=== PATIENT | male | born 1985 | race Caucasian/White ===

== ENCOUNTER 2021-04-02 20:30 | Inpatient (IN) | payer OTHER, SELFPAY ==
--- NOTE | ~2021-04-02 | CT_ITS ---
EXAMINATION: CT ABDOMEN AND PELVIS WITH CONTRAST CLINICAL INFORMATION: Anterior abdominal wall cellulitis associated with umbilical hernia COMPARISON: None TECHNIQUE: Multidetector volumetric images were obtained from the superior aspect of the liver through the pubic symphysis following administration 85 mL of Omnipaque 350 intravenous contrast. Sagittal and coronal reformatted images were obtained on the technologist's workstation. Oral contrast: No This CT examination was performed using dose optimization techniques as appropriate, variously including the following: *Automated exposure control *Adjustment of mA and/or kV according to patient size (this includes techniques or standardized protocols for targeted exams where dose is matched to indication/reason for exam; i.e. extremities or head) *Use of iterative reconstruction technique DLP: 1340 mGy-cm FINDINGS: LUNG BASES: Clear. LIVER, GALLBLADDER, AND BILIARY TREE: The liver is normal in size, shape, and attenuation. No focal hepatic lesion or biliary ductal dilatation is present. The gallbladder is unremarkable with no evidence of radiopaque gallstones, gallbladder wall thickening, or obvious pericholecystic inflammatory changes. PANCREAS: Unremarkable. SPLEEN: Unremarkable. ADRENAL GLANDS: Unremarkable. KIDNEYS AND URETERS: The kidneys are normal in size, shape, and attenuation. Simple renal cyst, right kidney requires no further follow-up. No hydronephrosis, hydroureter, or calculi seen. No perinephric stranding. BLADDER: Unremarkable. GASTROINTESTINAL TRACT: The small and large bowel are unremarkable. The appendix is unremarkable. ABDOMINAL WALL: There is a tiny fat-containing umbilical hernia associated with extensive umbilical and periumbilical fat stranding and associated skin thickening. Small amount of gas present within the anterior umbilicus, possibly intertriginous. LYMPH NODES: Normal. VASCULAR: Unremarkable. PELVIC VISCERA: Unremarkable. OSSEOUS STRUCTURES: Unremarkable. CT/CT abdomen pelvis w con IMPRESSION: * There is skin thickening and underlying subcutis fat stranding of the umbilicus and periumbilical soft tissues reflective of cellulitis. There is a tiny fat-containing umbilical hernia which seems to be unrelated. * Trace gas within (or between) the anterior umbilical soft tissues may be intertriginous or reflect an abscess.
[2021-04-02 20:32] VITALS: BP 149/104; PULSE 108; RESP 18; TEMP 36.6; O2SAT 95; BMI 36.7
[2021-04-02 22:48] VITALS: BP 145/90; PULSE 95; RESP 17; TEMP 37.1; O2SAT 97
[2021-04-02 23:07] LABS: Basophils Percent Auto 0.4 % (0-2); Eosinophils Absolute Auto 0.1 X10*3/uL (0.0-0.4); Eosinophils Percent Auto 1.3 % (0-4); Hematocrit 39.5 % (42-52); Hemoglobin 14.1 g/dl (14.0-18.0); Imm Gran Abs Auto 0.02 X10*3/uL (0.00-0.03); Imm Gran Pct Auto 0.2 % (0.0-0.4); Lymphocytes Absolute Auto 1.7 X10*3/uL (1.2-4.9); Lymphocytes Percent Auto 17.9 % (20-40); MANUAL DIFF FLAG NO; Mean Corpuscular HGB Conc 35.7 g/dl (31.0-36.0); Mean Corpuscular Hemoglobin 30.8 pg (27.0-33.0); Mean Corpuscular Volume 86.2 fL (80-98); Mean Platelet Volume 8.7 fL (9.4-12.4); Monocytes Absolute Auto 1.1 X10*3/uL (0.1-1.2); Monocytes Percent Auto 11.5 % (2-11); Neutrophils Absolute Auto 6.4 X10*3/uL (2.0-8.3); Neutrophils Percent Auto 68.7 % (45-73); Platelet Count 191 X10*3/uL (160-400); Red Blood Count 4.58 X10*6/uL (4.60-5.80); Red Cell Distribution Width 11.6 % (11.0-16.0); White Blood Count 9.3 X10*3/uL (4.8-10.8)
--- NOTE | 2021-04-02 23:15 | ED_ITS ---
HPI - General Adult General Chief complaint: General Medical Stated complaint: hernia Time Seen by Provider: 04/02/21 23:13 Source: patient Mode of arrival: ambulatory History of Present Illness HPI narrative: 35-year-old male without significant past medical history presents for continued drainage, erythema, pain at his ?belly button? without associated fever, chills, nausea, vomiting, diarrhea. Patient states that 1 week ago he noted that there was redness around his belly button he began treating for a yeast infection with Lotrimin, but it did not get better so he went to [facility] ago at which time they performed an I and D and started patient on antibiotics. However, they informed him yesterday that there was no bacteria present. Patient states that he continues to have pain and notes that the swelling at the belly button has gotten worse. Related Data Allergies Allergy/AdvReac Type Severity Reaction Status Date / Time No Known Allergies Allergy Verified 04/02/21 20:37 Review of Systems Review of Systems: Pertinent positives and negatives as stated in HPI 10 point review of systems is otherwise negative. PMFSH Past Medical History Source: nursing notes reviewed Medical History Degenerative disc disease at L5-S1 level Social History Social History Advance Directives: No Advance Directives Information Provided: No Physical Exam Vital Signs: Vital Signs: Last Vital Signs Temp 98.3 F 04/03/21 04:57 Pulse 70 04/03/21 06:46 Resp 15 04/03/21 06:46 BP 117/63 04/03/21 06:46 Pulse Ox 98 04/03/21 06:46 Body Mass Index 36.7 VITAL SIGNS: Reviewed. GENERAL: Well developed, well nourished, in no acute distress. HEAD: Normocephalic/atraumatic EYES: PERRLA, EOMI EARS: Ext canals without abnormality OROPHARYNX: no oral lesions noted, posterior pharynx clear LUNGS: Normal breath sounds. No adventitious sounds or accessory muscle use. SpO2<98> CARDIOVASCULAR: Regular rate and rhythm without noted murmurs ABDOMEN: Obese, Soft, non-tender, non-distended with bowel sounds, but there is significant induration approximately 6 cm surrounding the umbilicus and can easily be palpated with a noted herniation at the umbilicus that is fluctuant and there is noted serous colored fluid pooling within the umbilicus there is also associated erythema, but patient is unable to tolerate further palpation to appreciate umbilical defect. SKIN: Inspection of the skin reveals no rashes NEUROLOGIC: Alert and oriented x 4. Strength and sensation to light touch were grossly intact x 4. Course Course Course Narrative: 35-year-old male with history and clinical presentation concerning for abdominal wall cellulitis that is not responded to oral antib iotics and further concerns given the quality of the drainage in the umbilicus which is not consistent with purulence material. On review of all investigations CT scan demonstrates abdominal wall cellulitis and states ?appears to be unrelated with noted umbilical hernia?. This case was discussed with Dr. Pham who will see the patient the morning and recommends antibiotics, which were given. Reevaluation(s) Reevaluation #1: Patient placed in physician observation because the patient needed more time for evaluation by Surgical Services. At the time observation was started the patient's vital signs were stable, patient is alert and oriented, neuro: Nonfocal, CV RRR, lungs clear Time: 02:05 Reevaluation #2: Patient taken off of physician observation and was noted to be AVSS, and decision to admit by surgeon. Time: 08:00 Medical Decision Making Lab Data Result diagrams: 04/02/21 23:02 04/02/21 23:02 Labs: Lab Results 04/02/21 04/02/21 04/03/21 Range/Units 23:02 23:02 02:01 WBC 9.3 (4.8-10.8) X10*3/uL RBC 4.58 L (4.60-5.80) X10*6/uL Hgb 14.1 (14.0-18.0) g/dl Hct 39.5 L (42-52) % MCV 86.2 (80-98) fL MCH 30.8 (27.0-33.0) pg MCHC 35.7 (31.0-36.0) g/dl RDW 11.6 (11.0-16.0) % Plt Count 191 (160-400) X10*3/uL MPV 8.7 L (9.4-12.4) fL Immature Gran % (Auto) 0.2 (0.0-0.4) % Neut % (Auto) 68.7 (45-73) % Lymph % (Auto) 17.9 L (20-40) % [place] % (Auto) 11.5 H (2-11) % Eos % (Auto) 1.3 (0-4) % Baso % (Auto) 0.4 (0-2) % Lymph # (Auto) 1.7 (1.2-4.9) X10*3/uL [place] # (Auto) 1.1 (0.1-1.2) X10*3/uL Eos # (Auto) 0.1 (0.0-0.4) X10*3/uL Baso # (Auto) 0.0 (0.0-0.2) X10*3/uL Abs Immat Gran (auto) 0.02 (0.00-0.03) X10*3/uL Absolute Neuts (auto) 6.4 (2.0-8.3) X10*3/uL Absolute Nucleated RBC 0.000 (0.0-0.012) X10*3/uL Nucleated RBC % (auto) 0.0 (0.0-0.2) /100WBC Sodium 141 (135-145) mmol/L Potassium 4.0 (3.3-5.1) mmol/L Chloride 105 (96-108) mmol/L Carbon Dioxide 26 (22-29) mmol/L Anion Gap 14 (12-20) BUN 18 H (9-16) mg/dL Creatinine 1.14 (0.5-1.4) mg/dL Estim Creat Clear Calc 139.0 Estimated GFR > 60 Random Glucose 130 H (60-115) mg/dL Calcium 9.9 (8.4-10.2) mg/dL Total Bilirubin 0.5 (0.0-1.0) mg/dL AST 13 (5-37) U/L ALT 20 (0-40) U/L Alkaline Phosphatase 102 (39-117) U/L Total Protein 7.5 (6.5-8.0) g/dL Albumin 4.3 (3.5-5.0) g/dL COVID-19 (ISI) Negative (Negative) COVID-19 Clin Com See Note Discharge Plan Discharge Patient Disposition: Admitted As Inpatient
[2021-04-02 23:35] LABS: Alanine Aminotransferase 20 U/L (0-40); Albumin Level 4.3 g/dL (3.5-5.0); Alkaline Phosphatase 102 U/L (39-117); Anion Gap 14 (12-20); Aspartate Amino Transferase 13 U/L (5-37); Bilirubin Total 0.5 mg/dL (0.0-1.0); Blood Urea Nitrogen 18 mg/dL (9-16); Calcium 9.9 mg/dL (8.4-10.2); Carbon Dioxide 26 mmol/L (22-29); Chloride 105 mmol/L (96-108); Estimated Glomerular Filt Rate > 60; Glucose Random 130 mg/dL (60-115); Sodium 141 mmol/L (135-145); Total Protein 7.5 g/dL (6.5-8.0)
[2021-04-03] MEDS: iohexoL 350 MG/ML 100 ML INFUS..BTL IV (00:57)
[2021-04-03 01:57] VITALS: BP 145/84; PULSE 98; RESP 16; TEMP 36.9; O2SAT 98
[2021-04-03] MEDS: Piperacillin Sodium/Tazobactam 3.375 GM in 0.9 % Sodium Chloride 50 ML IV ×4 (02:23→20:16)
[2021-04-03 02:24] LABS: COVID-19 Test Negative (Negative); IDNOW Serial# 9DD0AD1C
[2021-04-03 04:57] VITALS: BP 145/93; PULSE 83; RESP 18; TEMP 36.8; O2SAT 97
--- NOTE | 2021-04-03 05:06 | PC.NURSE ---
This RN to bedside to reassess VS. Pt updated on plan of care including seeing Dr Pham in AM for consult regarding CT results. Pt expresses understanding and is agreeable. Pt abruptly sits up and begins vomiting, states I have reflux. Dr Magdaleno made aware, ordered zofran for pt. Pt's stretcher in low locked position, rails raised, call roth within reach
[2021-04-03 06:46] VITALS: BP 117/63; PULSE 70; RESP 15; O2SAT 98
--- NOTE | 2021-04-03 08:37 | P.HPGS_ITS ---
History of Present Illness History of Present Illness Date of Service: 04/03/21 Chief complaint: cellulitis of the umbilicus Narrative: Jabari Crane is a 35 year old male with morbid obesity who came to the emergency room last night because of redness of his umbilicus with discharge. He said he has had this for several days now and he actually went to an urgent care center about 5 years ago. He was told he had cellulitis and was started on oral antibiotics. However, he has not noticed any improvement with regard to the redness and drainage. He denies any GI complaints. He says does not really have much pain on the umbilical area. I was therefore consulted because of the persistence of his redness and drainage. The patient denies any fever or chills at home. Review of Systems Constitutional: Constitutional: Denies chills and Denies fever(s) Cardiovascular: Cardiovascular: Denies chest pain, Denies dyspnea and Denies dyspnea on exertion Respiratory: Respiratory: Denies cough, Denies dyspnea and Denies dyspnea on exertion Gastrointestinal: Gastrointestinal: Denies hematochezia and Denies change in bowel habits Genitourinary: Genitourinary: Denies hematuria and Denies difficulty urinating Musculoskeletal: Musculoskeletal: Denies back pain and Denies limited range of motion Neurologic: Denies focal weakness and Denies convulsions Psychiatric: Psychiatric: Denies depression and Denies mood swings PMFSH Past Medical History Medical History Degenerative disc disease at L5-S1 level Morbid obesity Social History Social History Household Members: Other Household Members Other:: Lives with mother Housing: Apartment Do you presently have visiting nurse or other home services: No Patient Tobacco Use Status: Current everyday Tobacco user Tobacco use type: Cigarette Cigarettes Per Day: 10 Smoked in Last 30 Days: Yes e-Cigarette/Vaping Use: Never Used Patient Interested in Nicotine Replacement: Yes Patient Given Instructions on How to Stop Smoking: Yes Date Education Initiated: 04/03/21 Second Hand Smoke Exposure: No Use of substances other than those prescribed or required for medical reasons: No Any prior treatment program specific to substance use: No Have you been hit, kicked, punched, or otherwise hurt by someone within the past year? If so, by whom?: No Do you feel safe in your current relationship?: No Current Relationship Is there a partner from a previous relationship who is making you feel unsafe now?: No Advance Directives: No Advance Directives Information Provided: No Advance Directives on File: No Do you have thoughts of harming others: None Do you have a plan to hurt others: No Plan Recently lost weight without trying: No Nutrition Risks: No Nutritional Risk Poor oral hygiene: No Meds Allergies Allergy/AdvReac Type Severity Reaction Status Date / Time No Known Allergies Allergy Verified 04/02/21 20:37 Active Medications: Current Medications Generic Name Dose Route Start Last Admin Trade Name Freq PRN Reason Stop Dose Admin Sodium Chloride 1,000 mls @ 80 mls/hr 04/03/21 07:45 Ns IVCONT .[id number] BRIAN Piperacillin Sod/Tazobactam 50 mls @ 100 mls/hr 04/03/21 08:00 Sod 3.375 gm/ Sodium Chloride IV Q6H BRIAN Oxycodone HCl 10 mg 04/03/21 07:34 Oxycodone Hcl Immed Release 5 Mg Tablet PO Q6H PRN Pain, Moderate (Pain Scale 4-6 Sodium Chloride 3 ml 04/03/21 08:00 0.9 % Sodium Chloride Flush 3 Ml Syringe IVFLUSH QSHIFT [facility] Home Medications Medication Instructions Recorded Confirmed Last Taken Type sulfamethoxazole 800 1 tab PO BID 04/03/21 04/03/21 Unknown History mg-trimethoprim 160 mg tablet Physical Exam Vital Signs: Vital Signs: Last Vital Signs Temp 98.3 F 04/03/21 04:57 Pulse 70 04/03/21 06:46 Resp 15 04/03/21 06:46 BP 117/63 04/03/21 06:46 Pulse Ox 98 04/03/21 06:46 Body Mass Index 36.7 Const: Other: Appears obese General: comfortable and no acute distress Orientation/consciousness: patient oriented x3 Neck: Neck: Yes no lymphadenopathy Resp: Auscultation: clear to auscultation bilaterally Cardio: Rhythm: regular rhythm GI: Other: Redness of the area of the umbilicus, with scanty clear drainageand edema from the umbilical dimple itself Palpation (GI): Soft to palpation, nontender and no guarding Neuro: General: patient oriented x3 Results Results Labs: Short CBC 04/02/21 Range/Units 23:02 WBC 9.3 (4.8-10.8) X10*3/uL Hgb 14.1 (14.0-18.0) g/dl Hct 39.5 L (42-52) % Plt Count 191 (160-400) X10*3/uL BMP 04/02/21 23:02 Sodium 141 Potassium 4.0 Chloride 105 Carbon Dioxide 26 BUN 18 H Creatinine 1.14 Calcium 9.9 Liver Function 04/02/21 Range/Units 23:02 Total Bilirubin 0.5 (0.0-1.0) mg/dL AST 13 (5-37) U/L ALT 20 (0-40) U/L Alkaline Phosphatase 102 (39-117) U/L Albumin 4.3 (3.5-5.0) g/dL Abdomen CT scan report/results: report reviewed and image reviewed CT scan - pelvis: report reviewed and image reviewed Assessment and Plan (1) Cellulitis of umbilicus: Status: Acute He has significant redness and drainage from the umbilicus. I have reviewed his CAT scan images. There was note of inflammatory stranding within the umbilicus itself and the skin overlying this. He has has small fat contain ing area but this does not seem to be directly connected to the area of the inflammatory changes. I am going to therefore admit him for IV antibiotics as he has failed oral antibiotics. I have reviewed the CAT scan images with the radiologist. I would likely do a small I and D the area as there is note of a small focus of air that may represent an abscess. Fat necrosis within the umbilicus is also a differential. The patient understands the plan well. He is otherwise hemodynamically stable. Quality Stroke Does the patient have a stroke diagnosis?: No VTE Prior VTE?: No VTE Risk Level:: Medical - low VTE Device Contraindication: N/A - Device Ordered VTE Drug Contraindication: Treatment Not Indicated Procedures Date of Service Date of Service: 04/03/21
[2021-04-03] MEDS: 0.9 % Sodium Chloride 1,000 ML 80 ML IVCONT (08:46)
[2021-04-03 11:09] VITALS: BMI 36.7
--- NOTE | 2021-04-03 11:23 | PC.NURSE ---
Skin assessment completed today. Patient has an indurated umbilicus with surrounding redness. Surgical consult ordered. No other skin issues noted.
[2021-04-03 11:26] VITALS: BP 138/85; PULSE 76; RESP 16; TEMP 36.6; O2SAT 97
[2021-04-03 15:35] VITALS: BP 132/77; PULSE 59; RESP 20; TEMP 36.7; O2SAT 98
--- NOTE | 2021-04-03 16:15 | P.EN_ITS ---
Event Note Date of Service: 04/03/21 Event Note: Patient seen on afternoon rounds I explained to him that in view of persistent drainage from the umbilicus, I would do an I and D at bedside under local anesthesia Explained the technique of this procedure as well as the risks, benefits and alternatives He had given verbal consent He was in supine position The umbilicus prepped and draped. Lidocaine 1% was used for local anesthesia. An incision was made on the skin on the very edematous part of the umbilicus u sing a blade 11. A small cavity with serous fluid was entered and drained. Cultures were taken I probed the cavity with a hemostat to break down any loculations Dressings applied Continue dry dressings daily Continue antibiotics Possible discharge tomorrow or Tuesday depending on cellulitis
[2021-04-03] MEDS: Lidocaine HCl 1 % 20 ML VIAL SUBCUT (16:42)
[2021-04-03] MEDS: 0.9 % Sodium Chloride Flush 3 ML SYRINGE IVFLUSH (20:16)
[2021-04-04] VITALS: BP 119/65; PULSE 67; RESP 18; TEMP 36.4; O2SAT 98
[2021-04-04] MEDS: Piperacillin Sodium/Tazobactam 3.375 GM in 0.9 % Sodium Chloride 50 ML IV ×2 (02:13→08:30)
[2021-04-04] MEDS: 0.9 % Sodium Chloride 1,000 ML 80 ML IVCONT (04:34)
[2021-04-04 07:01] LABS: MANUAL DIFF FLAG NO
[2021-04-04 07:11] VITALS: BP 136/82; PULSE 70; RESP 18; TEMP 36.1; O2SAT 96
[2021-04-04 07:24] LABS: Basophils Absolute Auto 0.1 X10*3/uL (0.0-0.2); Basophils Percent Auto 0.8 % (0-2); Eosinophils Absolute Auto 0.2 X10*3/uL (0.0-0.4); Eosinophils Percent Auto 3.2 % (0-4); Hematocrit 38.9 % (42-52); Hemoglobin 13.2 g/dl (14.0-18.0); Imm Gran Abs Auto 0.02 X10*3/uL (0.00-0.03); Imm Gran Pct Auto 0.3 % (0.0-0.4); Lymphocytes Absolute Auto 2.1 X10*3/uL (1.2-4.9); Lymphocytes Percent Auto 33.5 % (20-40); Mean Corpuscular HGB Conc 33.9 g/dl (31.0-36.0); Mean Corpuscular Hemoglobin 29.9 pg (27.0-33.0); Mean Corpuscular Volume 88.2 fL (80-98); Mean Platelet Volume 9.1 fL (9.4-12.4); Monocytes Absolute Auto 0.6 X10*3/uL (0.1-1.2); Neutrophils Absolute Auto 3.3 X10*3/uL (2.0-8.3); Neutrophils Percent Auto 53.2 % (45-73); Platelet Count 215 X10*3/uL (160-400); Red Blood Count 4.41 X10*6/uL (4.60-5.80); Red Cell Distribution Width 11.7 % (11.0-16.0); White Blood Count 6.2 X10*3/uL (4.8-10.8)
[2021-04-04] MEDS: 0.9 % Sodium Chloride Flush 3 ML SYRINGE IVFLUSH (08:30)
--- NOTE | 2021-04-04 16:23 | P.PNGS_ITS ---
Subjective Subjective Date of Service: 04/04/21 Interval history: Seen this morning, feeling better. No significant pain. Physical Exam Vital Signs: Vital Signs: Last Vital Signs Temp 97 F 04/04/21 07:11 Pulse 70 04/04/21 07:11 Resp 18 04/04/21 07:11 BP 136/82 04/04/21 07:11 Pulse Ox 96 04/04/21 07:11 Body Mass Index 36.7 Const: General: cooperative, no acute distress and alert GI: Other: Soft, nontender, nondistended. Clean incision right central umbilical area. Moderate serosanguineous drainage on dressing, no active drainage, no significant cellulitic change to skin Procedures Date of Service Date of Service: 04/04/21 Progress Note: A&P Assessment and plan (1) Cellulitis of umbilicus: Status: Acute Assessment and Plan: Doing well following incision and drainage of umbilicus yesterday. Ready for discharge. Reviewed wound care. Will follow up with Dr. Pham in the office. Time Spent With Patient Time: Total time spent is greater than 50% in coordination of care (as docum ented) at patient's floor/unit and/or counseling patient: Time with patient: less than 15 minutes Quality Stroke Does the patient have a stroke diagnosis?: No VTE Prior VTE?: No VTE Risk Level:: Medical - low VTE Device Contraindication: N/A - Device Ordered VTE Drug Contraindication: Treatment Not Indicated
--- NOTE | 2021-04-07 10:11 | PM.DS ---
DS: Providers Provider Date of Service: 04/04/21 Date of admission: 04/03/21 07:32 Primary care physician: Kenneth Car MD DS: Diagnosis Discharge Diagnosis (1) Cellulitis of umbilicus: Status: Acute DS: Medications Discharge Medications Home Medications: Previous Rx's Medication Instructions Recorded oxycodone 5 mg tablet 5 mg PO Q4H PRN #15 tab 04/03/21 sulfamethoxazole 800 1 tab PO BID #10 tab 04/04/21 mg-trimethoprim 160 mg tablet (Bactrim DS) DS: Summary Hospital Course Hospital Course: BRIEF HPI: Jabari Crane is a 35 year old male with morbid obesity who came to the emergency room last night because of redness of his umbilicus with discharge.? He said he has had this for several days now and he actually went to an urgent care center about 5 years ago.? He was told he had cellulitis and was started on oral antibiotics.? However, he has not noticed any improvement with regard to the redness and drainage.? He denies any GI complaints.? He says does not really have much pain on the umbilical area. In light of the persistent drainage and cellulitis on PO antibiotics, he was admitted for IV antibiotics. HOSPITAL COURSE: He was admitted to the surgical service and started on IV zosyn. He had persistent drainage and therefore underwent a bedside I&D by Dr. Pham which he tolerated well. The cellulitis looked improved the following day with decreased erythema and drainage. The patient felt well with improvement in his pain. He was therefore discharged to home on a course of PO bactrim with daily dry dressing changes and follow up in the office. Status at Discharge Functional status at discharge: independent ambulation Overall status at discharge: patient is progressing back to baseline Time Spent with Patient Time attestation: Total time spent providing and/or coordinating discharge services: Discharge coordination time: Less than 30 minutes Quality: Stroke Does the patient have a stroke diagnosis?: No Physical Exam Vital Signs: Vital Signs: Last Vital Signs Temp 97 F 04/04/21 07:11 Pulse 70 04/04/21 07:11 Resp 18 04/04/21 07:11 BP 136/82 04/04/21 07:11 Pulse Ox 96 04/04/21 07:11 Body Mass Index 36.7 DS: Data Data Completed and Pending Completed studies during hospitalization [Text1]: Procedures Drainage of Abdominal Wall, Open Approach (04/03/21) Discharge Plan Discharge Patient Disposition: Home, Self-Care Discharge Diagnosis: Cellulitis of the umbilicus with drainage Referrals: Kenneth Pham MD [Physician] - 1 Week Kenneth Car MD [Primary Care Provider] - 1 Week Discharge Medications: New oxycodone 5 mg tablet 5 mg PO Q4H PRN (Reason: pain) Qty: 15 RF: 0 sulfamethoxazole-trimethoprim [Bactrim DS] 800-160 mg tablet 1 tab PO BID Qty: 10 RF: 0 Discontinued sulfamethoxazole-trimethoprim 800-160 mg tablet 1 tab PO BID RF: 0 Discharge Orders: Discharge Order (Routine); Ordered 04/04/21 Ordered By: Amber Orozco Diet: advance to usual diet Activity on Discharge: As tolerated Stand Alone Forms: Patient Portal Discharge page, Work/School Release Activity Restrictions/Additional Instructions: Dry dressings daily to umbilicus with gauze and as needed Call office for follow-up in 1-2 weeks for wound check [phone]) Care Plan Goals: Wound care Health Concerns: Wound care, cellulitis Plan of Treatment: Oral antibiotics and good wound care Assessment: Doing well with treatment Discharge Date/Time: 04/04/21 10:45
== END 2021-04-04 10:45 | disposition home or self-care (01) | DRG 364 ==
LOC: HO.ED 04-03 08:03 → HO.IMC 04-03 08:12
PROVIDERS: Admitting Provider Surgery; Emergency Provider Student in an Organized Health Care Education/Training Program; PCP Internal Medicine; Visit Provider Surgery
DX: L03.316 Cellulitis of umbilicus (principal); E66.01 Morbid (severe) obesity due to excess calories; F17.210 Nicotine dependence, cigarettes, uncomplicated; Z71.6 Tobacco abuse counseling; Z20.822 Contact with and (suspected) exposure to COVID-19; L03.311 Cellulitis of abdominal wall; Z68.36 Body mass index [BMI] 36.0-36.9, adult
CPT/HCPCS: 36415; 74177; 80053; 85025; 85027; 87071; 87205; 87635; 99024; 99219; 99285; J2405; J2543; Q9967

== ENCOUNTER → 2021-04-09 09:09 | Outpatient (BNVA) | payer OTHER, SELFPAY | PROVIDERS: PCP Internal Medicine; Referring Provider Internal Medicine; Visit Provider Surgery ==

== ENCOUNTER → 2021-05-14 15:06 | Outpatient (BNVA) | payer OTHER, SELFPAY | PROVIDERS: PCP Internal Medicine; Referring Provider Internal Medicine; Visit Provider Surgery ==

== ENCOUNTER 2024-01-25 15:04 | Inpatient (IN) | payer OTHER, SELFPAY ==
[2024-01-25 15:11] VITALS: BP 155/116; PULSE 110; RESP 18; TEMP 36.6; O2SAT 94; BMI 35.6
--- NOTE | 2024-01-25 15:12 | ED_ITS ---
[facility] - General Adult General Chief complaint: Psychiatric Symptoms Stated complaint: crisis and esophageal problem Time Seen by Provider: 01/25/24 15:59 Source: patient and RN notes reviewed Mode of arrival: ambulatory Limitations: no limitations History of Present Illness ED Provider: Lauryn Chavez PA-C [facility] narrative: This is a 38-year-old male, with no known medical problems, who presents emergency department with complaints of suicidal ideation and acid reflux. Patient reports that he has been going through a significant amount of life stressors and has not been eating or sleeping and has made some ?bad financial decisions?. He states that he has thoughts of suicidal ideation, does not elicit a plan. He denies any homicidal ideations. No visual or auditory hallucination. Denies alcohol use. Denies tobacco use or illicit drug use. He states that he has been battling bad acid reflux for many years, he has been on Prilosec which he has been taking without any relief. He has never been seen by a GI specialist in the past. He denies any fevers, chills, chest pain, shortness of breath, abdominal pain, nausea, vomiting or diarrhea. No other complaints or concerns at this time. MD complaint: Depression, acid reflux Related Data Home Medications ?Medication ?Instructions ?Recorded ?Confirmed No Known Home Meds 01/25/24 01/25/24 Allergies Allergy/AdvReac Type Severity Reaction Status Date / Time No Known Allergies Allergy Verified 01/25/24 15:14 Review of Systems 2 Review of Systems: Yes all other systems are reviewed and are negative Constitutional: Constitutional: Reports as per [facility] Past Medical History Attestation statement: The following information was validated with the patient. Medical History Morbid obesity Degenerative disc disease at L5-S1 level Social History Social History Household Members: Other Household Members Other:: Lives with mother Housing: Apartment Do you presently have visiting nurse or other home services: No Comment: [facility] zepeda Patient Tobacco Use Status: Current everyday Tobacco user Tobacco use type: Cigarette Cigarettes Per Day: 10 Smoked in Last 30 Days: No e-Cigarette/Vaping Use: Never Used Second Hand Smoke Exposure: No Use of substances other than those prescribed or required for medical reasons: No Advance Directives: No Advance Directives Information Provided: No Do you have a plan to hurt others: No Plan Physical Exam ED Vital Signs: Vital Signs - 24 hr 01/25/24 15:11 01/25/24 18:10 01/26/24 03:00 Temperature 97.9 F 97.4 F Pulse Rate 110 H 62 78 Respiratory Rate 18 18 16 Blood Pressure 155/116 H 158/92 H 144/101 H Pulse Oximetry 94 99 98 Oxygen Delivery Method Room Air Room Air Room Air BMI result Body Mass Index 35.6 Const General: cooperative, comfortable and no acute distress Orientation/consciousness: patient oriented x3 Limitations: no limitations HENMT Head: Yes normal to inspection, Yes normocephalic and Yes atraumatic Ears: hearing grossly normal bilaterally General nose exam: Normal external nose present Face and sinus: Yes normal facial exam Mouth: Normal oral and palatal mucosa present, oropharynx normal and moist mucous membranes Throat: Yes posterior oropharynx normal Eyes General: appearance normal, both eyes and all related structures Eyelids: Yes eyelids normal Conjunctivae: conjunctivae normal Sclerae: sclerae normal Pupils: Equal, round and reactive pupils present EOM: EOMs intact bilaterally Neck Neck: Yes normal visual inspection, Yes full ROM and Yes no lymphadenopathy Lymphatic: no lymphadenopathy noted Chest Chest palpation & inspection: normal inspection of the chest Resp Effort & Inspection: normal respiratory effort and able to speak in complete sentences Auscultation: clear to auscultation bilaterally, no crackles, no rales, no rhonchi and no wheezes Cardio Rate: regular rate Rhythm: regular rhythm Heart sounds: S1 normal heart sound present and S2 normal heart sound present GI Other: Abdomen is soft, nontender, nondistended Inspection: Yes normal to inspection Skin General skin exam: no rashes or lesions noted Trauma: no lacerations or abrasions Wounds: no wounds Neuro General: patient oriented x3 and moves all extremities Cranial nerves: Yes Equal, round and reactive pupils present Extrem General: Yes normal to inspection Right upper extremity: normal to inspection Left upper extremity: normal to inspection Right lower extremity: normal to inspection Left lower extremity: normal to inspection Course Course Course Narrative: RME- 38 year old male with PMHx significant for obesity presents for evaluation of both heartburn and depression with thoughts of harming myself. Plan for workup for medical clearance and then care team evaluation. Reevaluation(s) Reevaluation #1: Labs returned, within normal limits, EKG nonischemic. Troponin still pending. Re-evaluated patient, he is feeling better after receiving Maalox and viscous lidocaine. Patient will be admitted voluntarily for inpatient level of psychiatric care. Continue to monitor pending troponin result. Time: 18:09 Reevaluation #2: Troponin returns, unremarkable. Patient feeling better after receiving GI cocktail. Patient is medically cleared, will be psychiatric bed search. Time: 18:44 Reevaluation #3: Physician observation continued. VS stable, no acute events overnight. S 12 inpatient bed search 01/25 7am Medications Administered Discontinued Medications Generic Name Dose Route Start Last Admin Trade Name Freq PRN Reason Stop Dose Admin Al Hydroxide/Mg Hydroxide 30 ml 01/25/24 17:03 01/25/24 17:27 Magnesium Hydrox/Alum Hydrox 30 Ml Oral.Susp PO 01/25/24 17:04 30 ml ONCE ONE Administration Lidocaine HCl 15 ml 01/25/24 17:08 01/25/24 17:27 Lidocaine Hcl Viscous 2 % 15 Ml Solution MUCOUS MEM 01/25/24 17:09 15 ml ONCE ONE Administration Medical Decision Making Medical Decision Making [facility] Narrative: This is a 38-year-old male, with no known medical problems, who presents emergency department with complaints of suicidal ideation and acid reflux. On arrival, patient mildly hypertensive at 155/116, pulse 110, likely attributed to anxiety. Patient endorsing some acid reflux and thoughts of harming himself without a plan. Differential diagnoses include GERD, ACS-unlikely, depression, anxiety, suicidal ideation, electrolyte derangement. Given patient has had acid reflux problems for many years without any GI consult or evaluation, patient would benefit from GI consult outpatient. Patient endorsing slight burning in his throat which has been present for many months. Will try GI cocktail for symptoms. Plan: Labs, EKG, care team consult Differential Diagnosis Differential Diagnoses: The differential diagnosis associated with the presentation includes See above Admission/Observation Consideration of admission/observation: Escalation of care including admission/observation considered Escalation of care including admission/observation considered. Lab Data [facility] Lab Attestation statement: I reviewed the patient's lab results. No leukocytosis, stable H&H, chemistry within normal limits, slight elevation ALT, otherwise nondiagnostic. Troponin negative 01/25/24 16:03 01/25/24 16:03 Labs: Lab Results 01/25/24 01/25/24 Range/Units 16:03 19:02 WBC 6.2 (4.8-10.8) X10*3/uL RBC 5.32 (4.60-5.80) X10*6/uL Hgb 16.2 (14.0-18.0) g/dl Hct 45.4 (42.0-52.0) % MCV 85.3 (80.0-98.0) fL MCH 30.5 (27.0-33.0) pg MCHC 35.7 (31.0-36.0) g/dl RDW 13.4 (11.0-16.0) % Plt Count 235 (160-400) X10*3/uL MPV 9.2 L (9.4-12.4) fL Immature Gran % (Auto) 0.2 (0.0-0.4) % Neut % (Auto) 62.7 (45-73) % Lymph % (Auto) 26.3 (20-40) % Cobb % (Auto) 9.6 (2-11) % Eos % (Auto) 0.2 (0-4) % Baso % (Auto) 1.0 (0-2) % Lymph # (Auto) 1.6 (1.2-4.9) X10*3/uL Cobb # (Auto) 0.6 (0.1-1.2) X10*3/uL Eos # (Auto) 0.0 (0.0-0.4) X10*3/uL Baso # (Auto) 0.1 (0.0-0.2) X10*3/uL Abs Immat Gran (auto) 0.01 (0.00-0.03) X10*3/uL Absolute Neuts (auto) 3.9 (2.0-8.3) x10*3/uL Absolute Nucleated RBC 0.000 (0.0-0.012) X10*3/uL Nucleated RBC % (auto) 0.0 (0.0-0.2) /100WBC PT 13.8 H (11.1-13.3) SEC INR 1.1 (0.9-1.1) Sodium 142 (135-145) mmol/L Potassium 3.8 (3.3-5.1) mmol/L Chloride 107 (96-108) mmol/L Carbon Dioxide 22 (22-29) mmol/L Anion Gap 17 (12-20) BUN 12 (9-16) mg/dL Creatinine 0.87 (0.5-1.4) mg/dL Estim Creat Clear Calc 173.9 Estimated GFR > 60 Random Glucose 115 (60-115) mg/dL Calcium 10.0 (8.4-10.2) mg/dL Total Bilirubin 0.9 (0.0-1.0) mg/dL AST 20 (5-37) U/L ALT 44 H (0-40) U/L Alkaline Phosphatase 90 (39-117) U/L Troponin I High Sens 3.0 (<3.5-35.0) ng/L Total Protein 7.7 (6.5-8.0) g/dL Albumin 4.4 (3.5-5.0) g/dL Lipase 23 (8-78) U/L Salicylates < 5.0 L (15-30) mg/dL Urine Opiates Screen Not Detected (Not Detect) Ur Buprenorphine Scrn Not Detected (Not Detect) ng/mL Ur Oxycodone Screen Not Detected (Not Detect) ng/mL Urine Methadone Screen Not Detected (Not Detect) ng/mL Urine Fentanyl Screen Not Detected (Not Detect) Acetaminophen < 3 (<30) mcg/mL Ur Barbiturates Screen Not Detected (Not Detect) Ur Phencyclidine Scrn Not Detected (Not Detect) Ur Amphetamines Screen Not Detected (Not Detect) U Benzodiazepines Scrn Not Detected (Not Detect) Urine Cocaine Screen Not Detected (Not Detect) U Marijuana (THC) Screen Not Detected (Not Detect) Ethyl Alcohol < 10 mg/dL Independent Interpretation I performed an independent interpretation of an: EKG Interpretation: EKG normal sinus rhythm at a ventricular rate of 92 beats per minute, NC interval 152, QTC 408, no ST elevation or depression Discharge Plan Discharge Clinical Impression: Depression, Hx of gastroesophageal reflux (GERD) Patient Disposition: Still a Patient Prescriptions: No Action No Known Home Meds Referrals: [facility] [place] Gastroenterology Services [Provider Group] Interventions: Trigg-Suicide Risk Severity Scale Last Done: 01/25/24 16:23 Print Language: Slovak
--- NOTE | 2024-01-25 15:12 | ECG_ITS ---
Test Reason : SI Blood Pressure : / mmHG Vent. Rate : 092 BPM Atrial Rate : 092 BPM P-R Int : 152 ms QRS Dur : 084 ms QT Int : 330 ms P-R-T Axes : 036 002 017 degrees QTc Int : 408 ms Normal sinus rhythm Normal ECG No previous ECGs available Referred By: Junaid Schafer Electronically Signed By:YOSVANY FRIEDMAN MD
[2024-01-25 16:09] LABS: MANUAL DIFF FLAG NO
--- NOTE | 2024-01-25 17:22 | MHC.CARE ---
Pt seen by CARE team, he is voluntary for inpatient level of care. Section 12 put in chart for transport only.
[2024-01-25] MEDS: Magnesium Hydrox/Alum Hydrox 30 ML ORAL.SUSP PO (17:27)
[2024-01-25] MEDS: Lidocaine HCl Viscous 2 % 15 ML SOLUTION MUCOUS MEM (17:27)
--- NOTE | 2024-01-25 17:44 | PC.NURSE ---
Late entry patient admitted to ER w/ complaints of esophageal pain, and SI. Per patient, his esophageal pain is making have suicidal thoughts. Patient changed into hospital attire by security, 1:1 sitter at bedside. Patient to be admitted to inpatient psych unit.
[2024-01-25 17:45] LABS: INTERNATIONAL NORM RATIO 1.1 (0.9-1.1); Prothrombin Time 13.8 SEC (11.1-13.3)
[2024-01-25 17:48] LABS: Acetaminophen LAB < 3 mcg/mL (<30); Alanine Aminotransferase 44 U/L (0-40); Albumin Level 4.4 g/dL (3.5-5.0); Alkaline Phosphatase 90 U/L (39-117); Anion Gap 17 (12-20); Aspartate Amino Transferase 20 U/L (5-37); Bilirubin Total 0.9 mg/dL (0.0-1.0); Blood Urea Nitrogen 12 mg/dL (9-16); Carbon Dioxide 22 mmol/L (22-29); Chloride 107 mmol/L (96-108); Creatinine Clr Calc Pharmacy 173.9; Estimated Glomerular Filt Rate > 60; Ethanol < 10 mg/dL; Glucose Random 115 mg/dL (60-115); Lipase 23 U/L (8-78); Potassium 3.8 mmol/L (3.3-5.1); Salicylate < 5.0 mg/dL (15-30); Sodium 142 mmol/L (135-145); Total Protein 7.7 g/dL (6.5-8.0)
[2024-01-25 17:53] LABS: Basophils Absolute Auto 0.1 X10*3/uL (0.0-0.2); Eosinophils Percent Auto 0.2 % (0-4); Hematocrit 45.4 % (42.0-52.0); Hemoglobin 16.2 g/dl (14.0-18.0); Imm Gran Abs Auto 0.01 X10*3/uL (0.00-0.03); Imm Gran Pct Auto 0.2 % (0.0-0.4); Lymphocytes Absolute Auto 1.6 X10*3/uL (1.2-4.9); Lymphocytes Percent Auto 26.3 % (20-40); Mean Corpuscular HGB Conc 35.7 g/dl (31.0-36.0); Mean Corpuscular Hemoglobin 30.5 pg (27.0-33.0); Mean Corpuscular Volume 85.3 fL (80.0-98.0); Mean Platelet Volume 9.2 fL (9.4-12.4); Monocytes Absolute Auto 0.6 X10*3/uL (0.1-1.2); Monocytes Percent Auto 9.6 % (2-11); Neutrophils Absolute Auto 3.9 x10*3/uL (2.0-8.3); Neutrophils Percent Auto 62.7 % (45-73); Platelet Count 235 X10*3/uL (160-400); Red Blood Count 5.32 X10*6/uL (4.60-5.80); Red Cell Distribution Width 13.4 % (11.0-16.0); White Blood Count 6.2 X10*3/uL (4.8-10.8)
[2024-01-25 18:10] VITALS: BP 158/92; PULSE 62; RESP 18; O2SAT 99
[2024-01-25 19:25] LABS: Amphetamine Screen Urine Not Detected (Not Detect); Barbiturates, Urine Not Detected (Not Detect); Benzodiazepines Screen Urine Not Detected (Not Detect); Buprenorphine Scr Not Detected (Not Detect); Cannabinoid Screen Urine Not Detected (Not Detect); Cocaine Screen Urine Not Detected (Not Detect); Fentanyl, urine Not Detected (Not Detect); Methadone Screen, Urine Not Detected (Not Detect); Opiate Screen Urine Not Detected (Not Detect); Oxycodone Screen Urine Not Detected (Not Detect); Phencyclidine Screen Urine Not Detected (Not Detect)
[2024-01-26] VITALS (8 sets, daily range): BP systolic 134–164; BP diastolic 82–105; PULSE 78–140; RESP 14–20; TEMP 36.3–36.5; O2SAT 94–98
--- NOTE | 2024-01-26 06:26 | PC.NURSE ---
Patient slept through the night, no distress observed/reported, denied SI/HI/AVH, disposition per care team is section-12 inpatient bed search, VSS, med rec completed/currently not on any medication, will continue to monitor
--- NOTE | 2024-01-26 09:32 | PC.NURSE ---
Assumed care of patient at 0645, patient resting on bed, offering no complaints to this RN, respirations even and unlabored. Continue plan of care for inpatient bedsearch
[2024-01-26] MEDS: amLODIPine Besylate 5 MG TABLET PO (09:51)
--- NOTE | 2024-01-26 12:58 | PC.ADMIT ---
Addendum entered by Janelle Gordon RN 01/26/24 18:16: Started on Fluoxetine for depression and clonidine for anxiety. Original Note: Pt [place] [facility] [place] [facility] [facility] for unspecified depression and anxiety, and vague SI without a plan. 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 He reports his sleep and food intake have been poor and he has been having passive SI thoughts Life would be better without me. UTOX negative, reports he does not drink alcohol, and he stopped smoking cigarettes 3 years ago. He denies any behavioral health diagnoses and this is his first psychiatric admission. He reports these above symptoms have worsened over the past weeks and he is increasingly feeling overwhelmed by life afraid he will have a mental breakdown like his father did. He is A/O x4, appears anxious and quiet, presently denies SI/HI/AVH, skin and safety check performed with 2 RN's and unremarkable. He reports his only medical problem is GERD. Of note, he was mildly hypertensive while in the ED and was given a dose of amlodipine. Oriented to the unit and completed admission paperwork accordingly.
--- NOTE | 2024-01-26 17:56 | HO.PSYADMNOT ---
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 Patient is somewhat of a limited historian, giving only one-word answers to most questions, which are sometimes only indirectly relevant. Patient has no history of psychiatric care. He shared that his anxiety and depression started around 24 years old after a failed engagement. Patient said that he has had some level of depression for the past 15 years which seems to always get worse in the winter and again in the spring, lasting for few months and during which time (and currently) he stays in bed most of the day, does not attend to ADLs, has no interest in things, increased guilty feelings, low energy, poor concentration, low appetite and excessive sleep. In addition to his mother's illness and his springtime depression, patient said he made some bad financial decisions recently. He was vague and it's not totally clear what happened but he apparently went on the Internet and took a pay day, internet...[employer] loan for total of $3200 at an exorbitant interest rate which he tried to pay back but somehow thinks he scammed and needs a mediation commissioner. This recent incident worsened his depression and for the 1st time had suicidal thoughts and hopelessness. During interview, documentation writer gently inquired regarding patient's tendency to give one-word answers. With that question, patient stopped talking completely... After sometime documentation writer asked what patient was thinking but he remained reticent. After some more time documentation writer proposed asking just yes or no questions to which patient agreed. He said yes to a series of questions which included that he is aware he stopped talking, knows why he stopped that it is because he is unsure if he is ready to disclose certain things he is thinking about. Patient denies AVH; denies any history of ruby or manic episodes; denies any history of overt trauma; denies any history of drug or alcohol abuse; denies any prior history of SI or SA. Tried to assess for OCD but patient unable to discuss. He is ready to start trying medications. Past Psychiatric History: No history No medication trials Medical Evaluation Reviewed: Yes Unrelenting GERD; has only tried [id number] Prilosec and has never gone to see a GI specialist; knows about possible H pylori infection and says he will discuss with his PCP. [facility] Medical History (Updated 01/26/24 @ 19:20 by Robert Rashid MD) Anxiety MDD (major depressive disorder), recurrent severe, without psychosis Morbid obesity Degenerative disc disease at L5-S1 level Family History: Patient not sure Social History: -Grew up with his mother and father in [place] -At 18 years old, his parents ran out of money and they had to move to [place] where they lived in his sisters living room for several months until they bought a trailer. Patient cites this as a traumatic event, being uprooted from his home in [place] -Patient lived with his parents for the next [place], which he enjoyed saying he had friends -Patient was engaged at 23 years old however his fiancee, who had history of a TBI, revealed that she was quite mean to him in the engagement was called off. 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 Has 2 brothers:1 local with limited contact;1 brother in [place] with no contact Substance History: Denies any history of Trauma History: Being uprooted from his home in [place] at 18 years old and he and his parents became homeless and destitute, having to move to [place] to live with his sister Diagnostics Vital Signs (24Hr): Vital Signs - 24 hr 01/25/24 18:10 01/26/24 03:00 01/26/24 09:00 Temperature 97.4 F Pulse Rate 62 78 91 Respiratory Rate 18 16 14 Blood Pressure 158/92 H 144/101 H 140/105 H Pulse Oximetry 99 98 96 Oxygen Delivery Method Room Air Room Air Room Air 01/26/24 09:51 01/26/24 11:24 01/26/24 12:26 Temperature 97.7 F Pulse Rate 100 112 H Respiratory Rate 16 20 Blood Pressure 140/105 H 134/98 H 164/96 H Pulse Oximetry 98 95 Oxygen Delivery Method Room Air Room Air 01/26/24 12:47 Temperature Pulse Rate 88 Respiratory Rate Blood Pressure 139/82 Pulse Oximetry Oxygen Delivery Method BMI result Body Mass Index 35.6 Labs 01/25/24 16:03 01/25/24 16:03 Labs: Laboratory Results - last 48 hr 01/25/24 01/25/24 16:03 19:02 WBC 6.2 RBC 5.32 Hgb 16.2 Hct 45.4 MCV 85.3 MCH 30.5 MCHC 35.7 RDW 13.4 Plt Count 235 MPV 9.2 L Immature Gran % (Auto) 0.2 Neut % (Auto) 62.7 Lymph % (Auto) 26.3 Mccormick % (Auto) 9.6 Eos % (Auto) 0.2 Baso % (Auto) 1.0 Lymph # (Auto) 1.6 Mccormick # (Auto) 0.6 Eos # (Auto) 0.0 Baso # (Auto) 0.1 Abs Immat Gran (auto) 0.01 Absolute Neuts (auto) 3.9 Absolute Nucleated RBC 0.000 Nucleated RBC % (auto) 0.0 PT 13.8 H INR 1.1 Sodium 142 Potassium 3.8 Chloride 107 Carbon Dioxide 22 Anion Gap 17 BUN 12 Creatinine 0.87 Estim Creat Clear Calc 173.9 Estimated GFR > 60 Random Glucose 115 Calcium 10.0 Total Bilirubin 0.9 AST 20 ALT 44 H Alkaline Phosphatase 90 Troponin I High Sens 3.0 Total Protein 7.7 Albumin 4.4 Lipase 23 Salicylates < 5.0 L Urine Opiates Screen Not Detected Ur Buprenorphine Scrn Not Detected Ur Oxycodone Screen Not Detected Urine Methadone Screen Not Detected Urine Fentanyl Screen Not Detected Acetaminophen < 3 Ur Barbiturates Screen Not Detected Ur Phencyclidine Scrn Not Detected Ur Amphetamines Screen Not Detected U Benzodiazepines Scrn Not Detected Urine Cocaine Screen Not Detected U Marijuana (THC) Screen Not Detected Ethyl Alcohol < 10 Meds/Allergies Meds Home Medications ?Medication ?Instructions ?Recorded ?Confirmed ?Type No Known Home Meds 01/25/24 01/25/24 History Allergies Allergies Allergy/AdvReac Type Severity Reaction Status Date / Time No Known Allergies Allergy Verified 01/25/24 15:14 Mental Status Exam Mental Status Exam Narrative: Pt is alert and oriented; behavior is cooperative, calm; patient is not in distress; dressed in hospital attire, disheveled; mood is described as depressed and affect congruent, sometimes blunted, sometimes anxious; eye contact appropriate; Speech sparse, giving 1 or 2 word answers; normal volume; somewhat of an odd prosody; psychomotor retardation present; thought process is goal directed but also distracted and hesitant; Thought content is psychosocial stressors including bad financial decision, mother's terminal illness, his depression; on tx; no delusional/paranoid ideation expressed; some amount of SI; not clear to what degree; no HI. Denies AVH.. 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 Patient is somewhat of a limited historian, giving only one-word answers to most questions, which are sometimes only indirectly relevant. Patient has no history of psychiatric care. He shared that his anxiety and depression started around 24 years old after a failed engagement. Patient said that he has had some level of depression for the past 15 years which seems to always get worse in the winter and again in the spring, lasting for few months and during which time (and currently) he stays in bed most of the day, does not attend to ADLs, has no interest in things, increased guilty feelings, low energy, poor concentration, low appetite and excessive sleep. In addition to his mother's illness and his springtime depression, patient said he made some bad financial decisions recently. He was vague and it's not totally clear what happened but he apparently went on the Internet and took a pay day, internet[employer] loan for total of $3200 at an exorbitant interest rate which he tried to pay back but somehow thinks he scammed and needs a mediation commissioner. This recent incident worsened his depression and for the 1st time had suicidal thoughts and hopelessness. During interview, documentation writer gently inquired regarding patient's tendency to give one-word answers. With that question, patient stopped talking completely... After sometime documentation writer asked what patient was thinking but he remained reticent. After some more time documentation writer proposed asking just yes or no questions to which patient agreed. He said yes to a series of questions which included that he is aware he stopped talking, knows why he stopped that it is because he is unsure if he is ready to disclose certain things he is thinking about. Patient denies AVH; denies any history of ruby or manic episodes; denies any history of overt trauma; denies any history of drug or alcohol abuse; denies any prior history of SI or SA. Tried to assess for OCD but patient unable to discuss. He is ready to start trying medications. 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 Patient has a long history of untreated anxiety and depression, never discussing any of his symptoms with anyone. He is ready to start treatment now and agrees to Prozac, clonidine after reviewing risks/side effects. Depression and anxiety ASD? OCD? Plan: CV Q 15 minute checks Start Prozac 10 mg daily for depression and anxiety Start clonidine 0.1 mg Q 4 p.r.n. for anxiety Start famotidine 20 mg b.i.d. to help with GERD Continue omeprazole 20 mg daily Patient reports years of Unrelenting GERD; has only tried [id number] Prilosec and has never gone to see a GI specialist; knows about possible H pylori infection and says he will discuss with his PCP. Patient educated on: diagnosis, medication risk/benefits and medical condition Informed Consent: understands Reason for continued inpatient stay Substantial Risk for: inability to function Statement Statement: I have reviewed the history and physical and performed a pertinent examination on my patient. No changes have occurred unless specified. If the History and Physical was not performed prior to admission, the Hospitalist's service will be consulted for completing the admission physical. Time Spent With Patient Time: Total time managing care of this patient today ____ minutes.
[2024-01-26] MEDS: Famotidine 20 MG TABLET PO (18:06)
[2024-01-26] MEDS: FLUoxetine HCl 10 MG CAPSULE PO (18:06)
[2024-01-26] MEDS: cloNIDine HCL 0.1 MG TABLET PO (18:06)
[2024-01-26] MEDS: hydrOXYzine HCL 25 MG TABLET PO (18:14)
--- NOTE | 2024-01-26 18:24 | PC.NURSE ---
Pt VS checked prior to giving dose on clonidine and BP 159/104 and HR 133, pulse oximeter reading 93-94% on RA. Pt reported feeling very anxious and denies CP/SOB or discomfort. Reports that he has had a panic attack in the past after his father . Discussed above VS with Dr. Rashid and will recheck BP in 1 hr.
[2024-01-27 08:00] VITALS: BP 131/87; PULSE 103; RESP 20; TEMP 37.5; O2SAT 97
[2024-01-27] MEDS: FLUoxetine HCl 10 MG CAPSULE PO (09:10)
[2024-01-27] MEDS: Famotidine 20 MG TABLET PO ×2 (09:10→20:34)
[2024-01-27] MEDS: Omeprazole 20 MG CAPSULE.DR PO (09:10)
[2024-01-27 10:01] LABS: Estimated Average Glucose 111 mg/dL; Hemoglobin A1C 149.9773 umol/L; Hemoglobin A1c % 5.5 % (<6.0)
[2024-01-27 10:02] LABS: Cholesterol 186 mg/dL (<200); HDL Cholesterol 41 mg/dL (>40); LDL Cholesterol Calculated 125 mg/dL (<100); Triglycerides 103 mg/dL (<150)
[2024-01-27 13:50] VITALS: BP 127/77; PULSE 108; RESP 20; TEMP 36.6; O2SAT 94
[2024-01-27 13:53] VITALS: BP 127/77
[2024-01-27] MEDS: cloNIDine HCL 0.1 MG TABLET PO (13:53)
--- NOTE | 2024-01-27 16:28 | HO.PSYCHPN ---
Subjective Subjective Date of Service: 01/27/24 Reason For Visit: depression/ SI Healthcare Proxy: No Guardianship: No Medical Problems Affecting Mental Status: No Interim History: Pt in his room. Awake, alert, interactive. Reports he is tolerating new medication trial, Fluoxetine. Pt reporting he needed a clonidine and current dosage is effective at this time. Denies further concerns, no questions. Reports he is safe on the unit and is comfortable currently. Medication Compliance: Yes Side effects from medications: No Attending Groups: No Review of Systems Acute medical concerns: No Medical Review of Systems: unchanged Review of Systems Review of Systems Yes all other systems are reviewed and are negative (denies current issues/concerns) Mental Status Exam Mental Status Exam Patient Appearance: Appropriate Patient Orientation: Person, Place and Situation Level of Consciousness: Alert Patient Behavior: Appropriate, Guarded, Cooperative and Good Eye Contact Mood Description: Constricted Affect Description: Constricted Patient Cognition Impaired: No Ability to Follow Directions: Good Speech Pattern: Spontaneous Speech Thought Process: Distracted Thought Content: positive for Intact Depressive Symptoms: Increased Anxiety and Thoughts of /Suicide (denies) Judgement: Fair Diagnostics Vital Signs (24Hr): Vital Signs - 24 hr 01/26/24 18:08 01/26/24 19:03 01/27/24 08:00 Temperature 97.3 F 99.5 F Pulse Rate 140 H 80 103 H Respiratory Rate 20 20 Blood Pressure 159/102 H 150/85 H 131/87 Pulse Oximetry 94 97 97 Oxygen Delivery Method Room Air Room Air Room Air 01/27/24 13:50 01/27/24 13:53 Temperature 98 F Pulse Rate 108 H Respiratory Rate 20 Blood Pressure 127/77 127/77 Pulse Oximetry 94 Oxygen Delivery Method Room Air BMI result Body Mass Index 35.6 Labs 01/25/24 16:03 01/25/24 16:03 Labs: Laboratory Results - last 48 hr 01/25/24 01/25/24 01/27/24 16:03 19:02 09:23 WBC 6.2 RBC 5.32 Hgb 16.2 Hct 45.4 MCV 85.3 MCH 30.5 MCHC 35.7 RDW 13.4 Plt Count 235 MPV 9.2 L Immature Gran % (Auto) 0.2 Neut % (Auto) 62.7 Lymph % (Auto) 26.3 Bracken % (Auto) 9.6 Eos % (Auto) 0.2 Baso % (Auto) 1.0 Lymph # (Auto) 1.6 Bracken # (Auto) 0.6 Eos # (Auto) 0.0 Baso # (Auto) 0.1 Abs Immat Gran (auto) 0.01 Absolute Neuts (auto) 3.9 Absolute Nucleated RBC 0.000 Nucleated RBC % (auto) 0.0 PT 13.8 H INR 1.1 Sodium 142 Potassium 3.8 Chloride 107 Carbon Dioxide 22 Anion Gap 17 BUN 12 Creatinine 0.87 Estim Creat Clear Calc 173.9 Estimated GFR > 60 Random Glucose 115 Estimat Average Glucose 111 Hemoglobin A1c % 5.5 Calcium 10.0 Total Bilirubin 0.9 AST 20 ALT 44 H Alkaline Phosphatase 90 Troponin I High Sens 3.0 Total Protein 7.7 Albumin 4.4 Triglycerides 103 Cholesterol 186 LDL Cholesterol, Calc 125 H HDL Cholesterol 41 Lipase 23 Salicylates < 5.0 L Urine Opiates Screen Not Detected Ur Buprenorphine Scrn Not Detected Ur Oxycodone Screen Not Detected Urine Methadone Screen Not Detected Urine Fentanyl Screen Not Detected Acetaminophen < 3 Ur Barbiturates Screen Not Detected Ur Phencyclidine Scrn Not Detected Ur Amphetamines Screen Not Detected U Benzodiazepines Scrn Not Detected Urine Cocaine Screen Not Detected U Marijuana (THC) Screen Not Detected Ethyl Alcohol < 10 Medications Medications Current Medications Acetaminophen (Acetaminophen 325 Mg Tablet) 650 mg PO Q6H PRN PRN Reason: Headache/Pain Mild Scale (1-3) Al Hydroxide/Mg Hydroxide (Magnesium Hydrox/Alum Hydrox 30 Ml Oral.Susp) 30 ml PO Q6H PRN PRN Reason: Heartburn/Nausea Clonidine HCl (Clonidine Hcl 0.1 Mg Tablet) 0.1 mg PO Q4H PRN; Protocol PRN Reason: moderate anxiety Last Admin: 01/27/24 13:53 Dose: 0.1 mg Famotidine (Famotidine 20 Mg Tablet) 20 mg PO BID [facility] Last Admin: 01/27/24 09:10 Dose: 20 mg Fluoxetine HCl (Fluoxetine Hcl 10 Mg Capsule) 10 mg PO DAILY [facility] Last Admin: 01/27/24 09:10 Dose: 10 mg Hydroxyzine HCl (Hydroxyzine Hcl 25 Mg Tablet) 25 mg PO Q6H PRN PRN Reason: Anxiety Last Admin: 01/26/24 18:14 Dose: 25 mg Magnesium Hydroxide (Milk Of Magnesia 30 Ml Oral.Susp) 30 ml PO DAILY PRN PRN Reason: Constipation Nicotine (Nicotine 21 Mg Patch.Td24) 21 mg TRANSDERMA DAILY PRN PRN Reason: smoking cessation Nicotine Polacrilex (Nicotine Polacrilex 2 Mg Gum) 4 mg BUCCAL Q2H PRN PRN Reason: Nicotine Cravings Omeprazole (Omeprazole 20 Mg Capsule.Dr) 20 mg PO DAILY@0900 BRIAN Last Admin: 01/27/24 09:10 Dose: 20 mg Trazodone HCl (Trazodone Hcl 50 Mg Tablet) 50 mg PO BEDTIME MRX1 PRN PRN Reason: Insomnia Allergies Allergies Allergy/AdvReac Type Severity Reaction Status Date / Time No Known Allergies Allergy Verified 01/25/24 15:14 Assessment & Plan Assessment & Plan (1) MDD (major depressive disorder), recurrent severe, without psychosis: Status: Acute Code(s): F33.2 - Major depressive disorder, recurrent severe without psychotic features (2) Anxiety: Status: Acute Code(s): F41.9 - Anxiety disorder, unspecified (3) Hx of gastroesophageal reflux (GERD): Status: Acute Code(s): Z87.19 - Personal history of other diseases of the digestive system Plan HPI: Patient is a 38-year-old male, 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 Patient is somewhat of a limited historian, giving only one-word answers to most questions, which are sometimes only indirectly relevant. Patient has no history of psychiatric care. He shared that his anxiety and depression started around 24 years old after a failed engagement. Patient said that he has had some level of depression for the past 15 years which seems to always get worse in the winter and again in the spring, lasting for few months and during which time (and currently) he stays in bed most of the day, does not attend to ADLs, has no interest in things, increased guilty feelings, low energy, poor concentration, low appetite and excessive sleep. In addition to his mother's illness and his springtime depression, patient said he made some bad financial decisions recently. He was vague and it's not totally clear what happened but he apparently went on the Internet and took a pay day, internet[place] loan for total of $3200 at an exorbitant interest rate which he tried to pay back but somehow thinks he scammed and needs a vocational rehabilitation supervisor. This recent incident worsened his depression and for the 1st time had suicidal thoughts and hopelessness. During interview, display card writer gently inquired regarding patient's tendency to give one-word answers. With that question, patient stopped talking completely... After sometime display card writer asked what patient was thinking but he remained reticent. After some more time display card writer proposed asking just yes or no questions to which patient agreed. He said yes to a series of questions which included that he is aware he stopped talking, knows why he stopped that it is because he is unsure if he is ready to disclose certain things he is thinking about. Patient denies AVH; denies any history of ruby or manic episodes; denies any history of overt trauma; denies any history of drug or alcohol abuse; denies any prior history of SI or SA. Tried to assess for OCD but patient unable to discuss. He is ready to start trying medications. 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 Patient has a long history of untreated anxiety and depression, never discussing any of his symptoms with anyone. He is ready to start treatment now and agrees to Prozac, clonidine after reviewing risks/side effects. Depression and anxiety ASD? OCD? Plan: CV Q 15 minute checks Start Prozac 10 mg daily for depression and anxiety Start clonidine 0.1 mg Q 4 p.r.n. for anxiety Start famotidine 20 mg b.i.d. to help with GERD Continue omeprazole 20 mg daily Patient reports years of Unrelenting GERD; has only tried [id number] Prilosec and has never gone to see a GI specialist; knows about possible H pylori infection and says he will discuss with his PCP. 01/26: Continue tx. Informed Consent: understands Reason for continued inpatient stay Substantial Risk for: rapid decompensation Time Spent With Patient Time: Total time managing care of this patient today ____ minutes.
[2024-01-27 20:00] VITALS: BP 144/96; PULSE 87; RESP 18; TEMP 36.6; O2SAT 96
--- NOTE | 2024-01-28 08:02 | P.PNPSI_ITS ---
Subjective Subjective Date of Service: 01/28/24 Reason For Visit: depression/ SI Subjective Notes: Conditional Voluntary Interim History: Pt in his room. Awake, alert, interactive. reports he feels a little sedated from new medication; he denies dizziness and states it feels like mild sleepiness; willing to tolerate and likely will subside. Pt reporting he needed a clonidine and current dosage is effective at this time. Denies further concerns, no questions. Reports he is safe on the unit and is comfortable currently. Review of Systems Review of Systems Yes all other systems are reviewed and are negative (denies current issues/concerns) Constitutional: Reports as per HPI Mental Status Exam Mental Status Exam Narrative: Pt is alert and oriented; behavior is cooperative, calm; patient is not in distress; dressed in hospital attire, disheveled; mood is described as depressed and affect congruent, sometimes blunted, sometimes anxious; eye contact appropriate; Speech sparse, giving 1 or 2 word answers; normal volume; somewhat of an odd prosody; psychomotor retardation present; thought process is goal directed but also distracted and hesitant; Thought content is psychosocial stressors including bad financial decision, mother's terminal illness, his depression; on tx; no delusional/paranoid ideation expressed; some amount of SI; not clear to what degree; no HI. Denies AVH.. Patients insight and judgment impaired Patient Appearance: Appropriate Patient Orientation: Person, Place and Situation Level of Consciousness: Alert Patient Behavior: Appropriate, Guarded, Cooperative and Good Eye Contact Mood Description: Constricted Affect Description: Constricted Patient Cognition Impaired: No Ability to Follow Directions: Good Speech Pattern: Spontaneous Speech Diagnostics Vital Signs (24Hr): Vital Signs - 24 hr 01/27/24 13:50 01/27/24 13:53 01/27/24 20:00 Temperature 98 F 97.9 F Pulse Rate 108 H 87 Respiratory Rate 20 18 Blood Pressure 127/77 127/77 144/96 H Pulse Oximetry 94 96 Oxygen Delivery Method Room Air Room Air BMI result Body Mass Index 35.6 Labs 01/25/24 16:03 01/25/24 16:03 Labs: Laboratory Results - last 48 hr 01/27/24 09:23 Estimat Average Glucose 111 Hemoglobin A1c % 5.5 Triglycerides 103 Cholesterol 186 LDL Cholesterol, Calc 125 H HDL Cholesterol 41 Medications Medications Current Medications Acetaminophen (Acetaminophen 325 Mg Tablet) 650 mg PO Q6H PRN PRN Reason: Headache/Pain Mild Scale (1-3) Al Hydroxide/Mg Hydroxide (Magnesium Hydrox/Alum Hydrox 30 Ml Oral.Susp) 30 ml PO Q6H PRN PRN Reason: Heartburn/Nausea Clonidine HCl (Clonidine Hcl 0.1 Mg Tablet) 0.1 mg PO Q4H PRN; Protocol PRN Reason: moderate anxiety Last Admin: 01/27/24 13:53 Dose: 0.1 mg Famotidine (Famotidine 20 Mg Tablet) 20 mg PO BID [facility] Last Admin: 01/27/24 20:34 Dose: 20 mg Fluoxetine HCl (Fluoxetine Hcl 10 Mg Capsule) 10 mg PO DAILY [facility] Last Admin: 01/27/24 09:10 Dose: 10 mg Hydroxyzine HCl (Hydroxyzine Hcl 25 Mg Tablet) 25 mg PO Q6H PRN PRN Reason: Anxiety Last Admin: 01/26/24 18:14 Dose: 25 mg Magnesium Hydroxide (Milk Of Magnesia 30 Ml Oral.Susp) 30 ml PO DAILY PRN PRN Reason: Constipation Nicotine (Nicotine 21 Mg Patch.Td24) 21 mg TRANSDERMA DAILY PRN PRN Reason: smoking cessation Nicotine Polacrilex (Nicotine Polacrilex 2 Mg Gum) 4 mg BUCCAL Q2H PRN PRN Reason: Nicotine Cravings Omeprazole (Omeprazole 20 Mg Capsule.Dr) 20 mg PO DAILY@0900 [facility] Last Admin: 01/27/24 09:10 Dose: 20 mg Trazodone HCl (Trazodone Hcl 50 Mg Tablet) 50 mg PO BEDTIME MRX1 PRN PRN Reason: Insomnia Allergies Allergies Allergy/AdvReac Type Severity Reaction Status Date / Time No Known Allergies Allergy Verified 01/25/24 15:14 Assessment & Plan Assessment & Plan (1) MDD (major depressive disorder), recurrent severe, without psychosis: Status: Acute Code(s): F33.2 - Major depressive disorder, recurrent severe without psychotic features (2) Anxiety: Status: Acute Code(s): F41.9 - Anxiety disorder, unspecified (3) Hx of gastroesophageal reflux (GERD): Status: Acute Code(s): Z87.19 - Personal history of other diseases of the digestive system Plan HPI: Patient is a 38-year-old male, 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 Patient is somewhat of a limited historian, giving only one-word answers to most questions, which are sometimes only indirectly relevant. Patient has no history of psychiatric care. He shared that his anxiety and depression started around 24 years old after a failed engagement. Patient said that he has had some level of depression for the past 15 years which seems to always get worse in the winter and again in the spring, lasting for few months and during which time (and currently) he stays in bed most of the day, does not attend to ADLs, has no interest in things, increased guilty feelings, low energy, poor concentration, low appetite and excessive sleep. In addition to his mother's illness and his springtime depression, patient said he made some bad financial decisions recently. He was vague and it's not totally clear what happened but he apparently went on the Internet and took a pay day, internet...[employer] loan for total of $3200 at an exorbitant interest rate which he tried to pay back but somehow thinks he scammed and needs a strap buckler machine. This recent incident worsened his depression and for the 1st time had suicidal thoughts and hopelessness. During interview, global technical writer gently inquired regarding patient's tendency to give one-word answers. With that question, patient stopped talking completely... After sometime global technical writer asked what patient was thinking but he remained reticent. After some more time global technical writer proposed asking just yes or no questions to which patient agreed. He said yes to a series of questions which included that he is aware he stopped talking, knows why he stopped that it is because he is unsure if he is ready to disclose certain things he is thinking about. Patient denies AVH; denies any history of ruby or manic episodes; denies any history of overt trauma; denies any history of drug or alcohol abuse; denies any prior history of SI or SA. Tried to assess for OCD but patient unable to discuss. He is ready to start trying medications. 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 Patient has a long history of untreated anxiety and depression, never discussing any of his symptoms with anyone. He is ready to start treatment now and agrees to Prozac, clonidine after reviewing risks/side effects. Depression and anxiety ASD? OCD? Plan: CV Q 15 minute checks Start Prozac 10 mg daily for depression and anxiety Start clonidine 0.1 mg Q 4 p.r.n. for anxiety Start famotidine 20 mg b.i.d. to help with GERD Continue omeprazole 20 mg daily Patient reports years of Unrelenting GERD; has only tried [id number] Prilosec and has never gone to see a GI specialist; knows about possible H pylori infection and says he will discuss with his PCP. 01/26: Continue tx. 01/27 continue tx Reason for continued inpatient stay Substantial Risk for: harm to self Time Spent With Patient Time: Total time managing care of this patient today ____ minutes.
[2024-01-28 08:40] VITALS: BP 158/97
[2024-01-28] MEDS: FLUoxetine HCl 10 MG CAPSULE PO (08:40)
[2024-01-28] MEDS: hydrOXYzine HCL 25 MG TABLET PO (08:40)
[2024-01-28] MEDS: cloNIDine HCL 0.1 MG TABLET PO (08:40)
[2024-01-28] MEDS: Omeprazole 20 MG CAPSULE.DR PO (08:40)
[2024-01-28 08:42] VITALS: BP 158/97; PULSE 79; RESP 20; TEMP 36.5; O2SAT 97
[2024-01-28] MEDS: Famotidine 20 MG TABLET PO (09:58)
[2024-01-28 20:00] VITALS: BP 148/92; PULSE 84; RESP 18; TEMP 36.4; O2SAT 96
[2024-01-29 08:00] VITALS: BP 152/103; PULSE 112; RESP 20; TEMP 36.4; O2SAT 99
[2024-01-29] MEDS: Famotidine 20 MG TABLET PO ×2 (08:32→23:12)
[2024-01-29] MEDS: Omeprazole 20 MG CAPSULE.DR PO (08:32)
[2024-01-29] MEDS: FLUoxetine HCl 10 MG CAPSULE PO (08:37)
--- NOTE | 2024-01-29 10:24 | HO.PSYCHPN ---
Subjective Subjective Date of Service: 01/29/24 Reason For Visit: depression/ SI Interim History: pt presenting constricted affect, mute, makes brief eye contact, did not eat breakfast or lunch, sitting on bed in same position for hours; he did move legs around while with this physician underwriter sitting with legs crossed on bed then putting one foot on floor; he nodded one time when I asked if he understood what I was saying about needing to take the ativan 2 mg PO. He did not take the ativan PO despite nursing trying to give to him over 20 minutes; he took one sip of water, stated to nurse you should test them first. Pt appear paranoid and fearful. He stares blankly for long periods; discussed with Dr Gay herrera dx of catatonia. Trial of ativan 2 mg TID PO and ativan 2mg IM PRN if pt does not take ativan 2mg for treatmetn of catatonia Medication Compliance: No Side effects from medications: No Attending Groups: No Review of Systems Review of Systems Yes all other systems are reviewed and are negative (denies current issues/concerns) Constitutional: Reports as per HPI Mental Status Exam Mental Status Exam Narrative: Pt is mostly mute; dressed in hospital attire, disheveled; mood is described as depressed and affect blunted. anxious; minimal eye contact appropriate; Speech sparse, giving 1 or 2 word answers; normal volume; somewhat of an odd prosody; psychomotor retardation present; thought process iunknown but distracted and hesitant; Patients insight and judgment impaired Patient Appearance: Appropriate Patient Orientation: Person, Place and Situation Level of Consciousness: Alert Patient Behavior: Appropriate, Guarded, Cooperative and Good Eye Contact Mood Description: Constricted Affect Description: Constricted Patient Cognition Impaired: No Ability to Follow Directions: Good Speech Pattern: Spontaneous Speech Diagnostics Vital Signs (24Hr): Vital Signs - 24 hr 01/28/24 20:00 01/29/24 08:00 Temperature 97.6 F 97.6 F Pulse Rate 84 112 H Respiratory Rate 18 20 Blood Pressure 148/92 H 152/103 H Pulse Oximetry 96 99 Oxygen Delivery Method Room Air Room Air BMI result Body Mass Index 35.6 Labs 01/25/24 16:03 01/25/24 16:03 Medications Medications Current Medications Acetaminophen (Acetaminophen 325 Mg Tablet) 650 mg PO Q6H PRN PRN Reason: Headache/Pain Mild Scale (1-3) Al Hydroxide/Mg Hydroxide (Magnesium Hydrox/Alum Hydrox 30 Ml Oral.Susp) 30 ml PO Q6H PRN PRN Reason: Heartburn/Nausea Clonidine HCl (Clonidine Hcl 0.1 Mg Tablet) 0.1 mg PO Q4H PRN; Protocol PRN Reason: moderate anxiety Last Admin: 01/28/24 08:40 Dose: 0.1 mg Famotidine (Famotidine 20 Mg Tablet) 20 mg PO BID [facility] Last Admin: 01/29/24 08:32 Dose: 20 mg Fluoxetine HCl (Fluoxetine Hcl 10 Mg Capsule) 10 mg PO DAILY [facility] Last Admin: 01/29/24 08:37 Dose: 10 mg Hydroxyzine HCl (Hydroxyzine Hcl 25 Mg Tablet) 25 mg PO Q6H PRN PRN Reason: Anxiety Last Admin: 01/28/24 08:40 Dose: 25 mg Magnesium Hydroxide (Milk Of Magnesia 30 Ml Oral.Susp) 30 ml PO DAILY PRN PRN Reason: Constipation Nicotine (Nicotine 21 Mg Patch.Td24) 21 mg TRANSDERMA DAILY PRN PRN Reason: smoking cessation Nicotine Polacrilex (Nicotine Polacrilex 2 Mg Gum) 4 mg BUCCAL Q2H PRN PRN Reason: Nicotine Cravings Omeprazole (Omeprazole 20 Mg Capsule.Dr) 20 mg PO DAILY@0900 [facility] Last Admin: 01/29/24 08:32 Dose: 20 mg Trazodone HCl (Trazodone Hcl 50 Mg Tablet) 50 mg PO BEDTIME MRX1 PRN PRN Reason: Insomnia Allergies Allergies Allergy/AdvReac Type Severity Reaction Status Date / Time No Known Allergies Allergy Verified 01/25/24 15:14 Assessment & Plan Assessment & Plan (1) MDD (major depressive disorder), recurrent severe, without psychosis: Status: Acute Code(s): F33.2 - Major depressive disorder, recurrent severe without psychotic features (2) Anxiety: Status: Acute Code(s): F41.9 - Anxiety disorder, unspecified (3) Hx of gastroesophageal reflux (GERD): Status: Acute Code(s): Z87.19 - Personal history of other diseases of the digestive system Plan HPI: Patient is a 38-year-old male, 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 Patient is somewhat of a limited historian, giving only one-word answers to most questions, which are sometimes only indirectly relevant. Patient has no history of psychiatric care. He shared that his anxiety and depression started around 24 years old after a failed engagement. Patient said that he has had some level of depression for the past 15 years which seems to always get worse in the winter and again in the spring, lasting for few months and during which time (and currently) he stays in bed most of the day, does not attend to ADLs, has no interest in things, increased guilty feelings, low energy, poor concentration, low appetite and excessive sleep. In addition to his mother's illness and his springtime depression, patient said he made some bad financial decisions recently. He was vague and it's not totally clear what happened but he apparently went on the Internet and took a pay day, internet[place] loan for total of $3200 at an exorbitant interest rate which he tried to pay back but somehow thinks he scammed and needs a asset protection lead. This recent incident worsened his depression and for the 1st time had suicidal thoughts and hopelessness. During interview, physician underwriter gently inquired regarding patient's tendency to give one-word answers. With that question, patient stopped talking completely... After sometime physician underwriter asked what patient was thinking but he remained reticent. After some more time physician underwriter proposed asking just yes or no questions to which patient agreed. He said yes to a series of questions which included that he is aware he stopped talking, knows why he stopped that it is because he is unsure if he is ready to disclose certain things he is thinking about. Patient denies AVH; denies any history of ruby or manic episodes; denies any history of overt trauma; denies any history of drug or alcohol abuse; denies any prior history of SI or SA. Tried to assess for OCD but patient unable to discuss. He is ready to start trying medications. 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 Patient has a long history of untreated anxiety and depression, never discussing any of his symptoms with anyone. He is ready to start treatment now and agrees to Prozac, clonidine after reviewing risks/side effects. Depression and anxiety ASD? OCD? Plan: CV Q 15 minute checks Start Prozac 10 mg daily for depression and anxiety Start clonidine 0.1 mg Q 4 p.r.n. for anxiety Start famotidine 20 mg b.i.d. to help with GERD Continue omeprazole 20 mg daily Patient reports years of Unrelenting GERD; has only tried [id number] Prilosec and has never gone to see a GI specialist; knows about possible H pylori infection and says he will discuss with his PCP. 01/26: Continue tx. 01/27 continue tx 01/28 differential dx catatonia vs psychosis; ativan 2mg TID PO and ativan 2mg IM prn if not taking PO for treatmetn of catatonia prozac discontinued I & O monitoring chemistry profile Patient educated on: diagnosis, medication risk/benefits, therapeutic strategies and medical condition Informed Consent: understands (minimal understanding but nodded yes to medication) and further education needed Reason for continued inpatient stay Substantial Risk for: harm to self, inability to function and rapid decompensation Time Spent With Patient Time: Total time managing care of this patient today _60___ minutes.
[2024-01-29] MEDS: LORazepam 1 MG TABLET 2 MG PO ×2 (15:15→23:12)
--- NOTE | 2024-01-29 19:01 | PC.NURSE ---
Shortly after spending an extensive amount of time with pt while encouraging him to take Ativan, move his body, drink water, etc he was seen in halls pacing and wearing his dark shades. He opted to eat his dinner in the kitchen with his peers and seemed completely comfortable in the milieu. When asked how he was doing he said better, getting out of my room helped. He proceeded to ask to wear his [employer] shirt and that he wanted to give his brother his car keys so he could move his vehicle (it had been parked for a month and was going to be towed). He was heard loudly belching in the halls on a couple occasions and a small water bottle he was previously drinking from was found near where he had been sitting, filled with a warm, yellow liquid. It was disposed of accordingly.
[2024-01-29 20:00] VITALS: BP 123/94; PULSE 144; TEMP 36.6; O2SAT 95
[2024-01-29 21:20] VITALS: PULSE 80
[2024-01-30 08:00] VITALS: BP 128/74; PULSE 70; RESP 18; TEMP 36.5; O2SAT 98
[2024-01-30 08:09] LABS: Alanine Aminotransferase 53 U/L (0-40); Albumin Level 4.1 g/dL (3.5-5.0); Alkaline Phosphatase 77 U/L (39-117); Anion Gap 12 (12-20); Aspartate Amino Transferase 25 U/L (5-37); Bilirubin Total 0.8 mg/dL (0.0-1.0); Blood Urea Nitrogen 16 mg/dL (9-16); Calcium 9.7 mg/dL (8.4-10.2); Carbon Dioxide 27 mmol/L (22-29); Chloride 107 mmol/L (96-108); Creatinine Clr Calc Pharmacy 154.4; Estimated Glomerular Filt Rate > 60; Glucose Random 106 mg/dL (60-115); Potassium 4.2 mmol/L (3.3-5.1); Sodium 142 mmol/L (135-145)
[2024-01-30] MEDS: Famotidine 20 MG TABLET PO ×2 (08:54→21:46)
[2024-01-30] MEDS: Omeprazole 20 MG CAPSULE.DR PO (08:54)
[2024-01-30] MEDS: LORazepam 1 MG TABLET 2 MG PO (08:54)
[2024-01-30] MEDS: Acetaminophen 325 MG TABLET 650 MG PO (08:56)
[2024-01-30] MEDS: Milk of Magnesia 30 ML ORAL.SUSP PO (08:56)
--- NOTE | 2024-01-30 14:58 | HO.PSYCHPN ---
Subjective Subjective Date of Service: 01/30/24 Reason For Visit: depression/ SI Subjective Notes: Conditional Voluntary Interim History: pt has completely different presentation today; walking in hallway with sun glasses on; he is talkative with staff and peers; pt asks to talk to me and sits crossed legged on exam table in treatment room. He says i think i have a bipolar disorder...I think I have a compulsive disorder.. States he had been very depressed upon admission and afraid to talk. he tells me he has a shopping addiction. he buys too many things;says no relationship for 14 years so when he wants to feel happy he goes shopping at [employer]. he says he spent his money and his mother's money; he likes collectibles, video games, and movies. he once went shopping and came home with 15 bags of groceries. He says he buys scratch tickets but not as compulsively. He says his house is full of things like a hoarder. he says his mother likes collectibles and she collects tiny witches all over the house. pt states his sisters, grandmother and 2 nieces are all agoraphobic. he say his father got delusional and was hospitalized for months in 2003 after a mental breakdown. Pt states he thinks what he has might be genetic. He denies drug or alcohol use; he says he does spend money on online pornography but not excessive not like the shopping for things he does. he prefers to go to the store and buy thins when he is lonely. He reports frequent panic attacks; when asked about periods of elation he states approximately a month ago he felt like that; he tells me he was a terrible student- they put him in sped classes because he liked wood working more than academics. He has some interpersonal problems at work due to he and boss like the same woman. He says his boss badgers him for information about her. He says he often takes criticism personally and then gets obsessed about the opinion of someone else. He denies SI or HI. He denies A/V H Medication Compliance: Yes Attending Groups: No Review of Systems Acute medical concerns: No Medical Review of Systems: unchanged Review of Systems Review of Systems Yes all other systems are reviewed and are negative (denies current issues/concerns) Constitutional: Reports as per HPI Mental Status Exam Mental Status Exam Patient Appearance: Disheveled and Unkempt Patient Orientation: Person, Place and Situation Level of Consciousness: Alert Patient Behavior: Appropriate, Talkative, Cooperative and Anxious Mood Description: Anxious, Apprehensive and Expansive Affect Description: Anxious, Apprehensive and Expansive Patient Cognition Impaired: No Ability to Follow Directions: Good Speech Pattern: Spontaneous Speech and Pressured Hallucinations: None Delusions: Not Present Thought Process: Rumination Thought Content: positive for Fenton and positive for Loose Associations Judgement: Poor Diagnostics Vital Signs (24Hr): Vital Signs - 24 hr 01/29/24 20:00 01/29/24 21:20 01/30/24 08:00 Temperature 97.8 F 97.7 F Pulse Rate 144 H 80 70 Respiratory Rate 18 Blood Pressure 123/94 H 128/74 Pulse Oximetry 95 98 Oxygen Delivery Method Room Air Room Air BMI result Body Mass Index 35.6 Labs 01/25/24 16:03 01/30/24 07:30 Labs: Laboratory Results - last 48 hr 01/30/24 07:30 Sodium 142 Potassium 4.2 Chloride 107 Carbon Dioxide 27 Anion Gap 12 BUN 16 Creatinine 0.98 Estim Creat Clear Calc 154.4 Estimated GFR > 60 Random Glucose 106 Calcium 9.7 Total Bilirubin 0.8 AST 25 ALT 53 H Alkaline Phosphatase 77 Total Protein 7.0 Albumin 4.1 Medications Medications Current Medications Acetaminophen (Acetaminophen 325 Mg Tablet) 650 mg PO Q6H PRN PRN Reason: Headache/Pain Mild Scale (1-3) Last Admin: 01/30/24 08:56 Dose: 650 mg Al Hydroxide/Mg Hydroxide (Magnesium Hydrox/Alum Hydrox 30 Ml Oral.Susp) 30 ml PO Q6H PRN PRN Reason: Heartburn/Nausea Clonidine HCl (Clonidine Hcl 0.1 Mg Tablet) 0.1 mg PO Q4H PRN; Protocol PRN Reason: moderate anxiety Last Admin: 01/28/24 08:40 Dose: 0.1 mg Famotidine (Famotidine 20 Mg Tablet) 20 mg PO BID BRIAN Last Admin: 01/30/24 08:54 Dose: 20 mg Hydroxyzine HCl (Hydroxyzine Hcl 25 Mg Tablet) 25 mg PO Q6H PRN PRN Reason: Anxiety Last Admin: 01/28/24 08:40 Dose: 25 mg Lorazepam (Lorazepam 1 Mg Tablet) 1 mg PO TID [facility] Magnesium Hydroxide (Milk Of Magnesia 30 Ml Oral.Susp) 30 ml PO DAILY PRN PRN Reason: Constipation Last Admin: 01/30/24 08:56 Dose: 30 ml Nicotine (Nicotine 21 Mg Patch.Td24) 21 mg TRANSDERMA DAILY PRN PRN Reason: smoking cessation Nicotine Polacrilex (Nicotine Polacrilex 2 Mg Gum) 4 mg BUCCAL Q2H PRN PRN Reason: Nicotine Cravings Omeprazole (Omeprazole 20 Mg Capsule.Dr) 20 mg PO DAILY@0900 BRIAN Last Admin: 01/30/24 08:54 Dose: 20 mg Trazodone HCl (Trazodone Hcl 50 Mg Tablet) 50 mg PO BEDTIME MRX1 PRN PRN Reason: Insomnia Allergies Allergies Allergy/AdvReac Type Severity Reaction Status Date / Time No Known Allergies Allergy Verified 01/25/24 15:14 Assessment & Plan Assessment & Plan (1) MDD (major depressive disorder), recurrent severe, without psychosis: Status: Acute Code(s): F33.2 - Major depressive disorder, recurrent severe without psychotic features (2) Anxiety: Status: Acute Code(s): F41.9 - Anxiety disorder, unspecified (3) Hx of gastroesophageal reflux (GERD): Status: Acute Code(s): Z87.19 - Personal history of other diseases of the digestive system Plan HPI: Patient is a 38-year-old male, 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 Patient is somewhat of a limited historian, giving only one-word answers to most questions, which are sometimes only indirectly relevant. Patient has no history of psychiatric care. He shared that his anxiety and depression started around 24 years old after a failed engagement. Patient said that he has had some level of depression for the past 15 years which seems to always get worse in the winter and again in the spring, lasting for few months and during which time (and currently) he stays in bed most of the day, does not attend to ADLs, has no interest in things, increased guilty feelings, low energy, poor concentration, low appetite and excessive sleep. In addition to his mother's illness and his springtime depression, patient said he made some bad financial decisions recently. He was vague and it's not totally clear what happened but he apparently went on the Internet and took a pay day, internet...false pass loan for total of $3200 at an exorbitant interest rate which he tried to pay back but somehow thinks he scammed and needs a denier control operator. This recent incident worsened his depression and for the 1st time had suicidal thoughts and hopelessness. During interview, marine underwriter gently inquired regarding patient's tendency to give one-word answers. With that question, patient stopped talking completely... After sometime marine underwriter asked what patient was thinking but he remained reticent. After some more time marine underwriter proposed asking just yes or no questions to which patient agreed. He said yes to a series of questions which included that he is aware he stopped talking, knows why he stopped that it is because he is unsure if he is ready to disclose certain things he is thinking about. Patient denies AVH; denies any history of ruby or manic episodes; denies any history of overt trauma; denies any history of drug or alcohol abuse; denies any prior history of SI or SA. Tried to assess for OCD but patient unable to discuss. He is ready to start trying medications. 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 Patient has a long history of untreated anxiety and depression, never discussing any of his symptoms with anyone. He is ready to start treatment now and agrees to Prozac, clonidine after reviewing risks/side effects. Depression and anxiety ASD? OCD? Plan: CV Q 15 minute checks Start Prozac 10 mg daily for depression and anxiety Start clonidine 0.1 mg Q 4 p.r.n. for anxiety Start famotidine 20 mg b.i.d. to help with GERD Continue omeprazole 20 mg daily Patient reports years of Unrelenting GERD; has only tried [id number] Prilosec and has never gone to see a GI specialist; knows about possible H pylori infection and says he will discuss with his PCP. 01/26: Continue tx. 01/27 continue tx 01/28 differential dx catatonia vs psychosis; ativan 2mg TID PO and ativan 2mg IM prn if not taking PO for treatmetn of catatonia prozac discontinued I & O monitoring chemistry profile 01/29 differential dx OCD, ASD, Bipolar DO, possible axis II begin taper of ativan to limit disinhibition start Depakote ER 250 mg at bedtime Patient educated on: diagnosis, medication risk/benefits and therapeutic strategies Informed Consent: understands and further education needed Reason for continued inpatient stay Substantial Risk for: harm to self, inability to function and rapid decompensation Time Spent With Patient Time: Total time managing care of this patient today ____ minutes.
[2024-01-30] MEDS: LORazepam 1 MG TABLET PO ×2 (15:44→21:47)
[2024-01-30 20:00] VITALS: BP 158/88; PULSE 84; RESP 18; TEMP 36.4; O2SAT 96
[2024-01-30] MEDS: Divalproex Sodium ER 250 MG TAB.ER.24H PO (21:46)
[2024-01-31 08:00] VITALS: BP 130/74; PULSE 76; RESP 16; TEMP 36.6; O2SAT 98
[2024-01-31] MEDS: LORazepam 1 MG TABLET PO ×3 (08:26→21:01)
[2024-01-31] MEDS: Omeprazole 20 MG CAPSULE.DR PO (08:26)
[2024-01-31] MEDS: Famotidine 20 MG TABLET PO ×2 (08:27→21:00)
--- NOTE | 2024-01-31 08:45 | HO.PSYCHPN ---
Subjective Subjective Date of Service: 01/31/24 Reason For Visit: depression/ SI Interim History: Met with patient; discussed with team; reviewed chart and discussed case with weekend provider On admission patient stopped talking and over the weekend it became apparent he had become catatonic, not moving his position at all for hours and hours, not speaking, not eating, not drinking. Patient was started on Ativan 2 mg t.i.d. which quickly and patient started moving, talking more; he continued to improve as Ativan was continued. Stockroom Coordinator discussed this with patient and he said he was aware that he had stopped talking and not moving; he said he was scared and felt like I was just locked up... He said nothing like that has ever happened before. Patient with mildly pressured speech when talking. Discussed psychiatric history in more detail and patient endorses history of mood lability, having crying spells that come out of no where and periodic struggles where he will spend excessive amounts of money and run into debt, which happened just prior to this admission. He also discussed in more detail his depressive episodes which could be severe but that he would still be able to push himself and go to work. Patient also wondered if he had autism, saying that there were people at work who were autistic and he found some similarities in how they interactive with others; patient shared that he often struggles to get jokes or sarcasm and has trouble reading interpersonal cues. Patient also does describes things in concrete terms making it difficult to discern if patient has actual manic episodes or if mood lability and spending sprees are due to an etiology other than bipolar ruby; he does say that his spending sprees coincide with loneliness. Patient shared that his father had history of excessive spending, compulsively spending money and at 1 point had a psychological break.. And when patient was a teenager, rapidly spent his 's inheritance of $100,000 dollars leaving them homeless. However, medical writer can not conclude whether this was a manic episode or not. Patient gave permission to discussed case with his mother. Diagnostics Vital Signs (24Hr): Vital Signs - 24 hr 01/30/24 20:00 Temperature 97.6 F Pulse Rate 84 Respiratory Rate 18 Blood Pressure 158/88 H Pulse Oximetry 96 Oxygen Delivery Method Room Air BMI result Body Mass Index 35.6 Labs 01/25/24 16:03 01/30/24 07:30 Labs: Laboratory Results - last 48 hr 01/30/24 07:30 Sodium 142 Potassium 4.2 Chloride 107 Carbon Dioxide 27 Anion Gap 12 BUN 16 Creatinine 0.98 Estim Creat Clear Calc 154.4 Estimated GFR > 60 Random Glucose 106 Calcium 9.7 Total Bilirubin 0.8 AST 25 ALT 53 H Alkaline Phosphatase 77 Total Protein 7.0 Albumin 4.1 Medications Medications Current Medications Acetaminophen (Acetaminophen 325 Mg Tablet) 650 mg PO Q6H PRN PRN Reason: Headache/Pain Mild Scale (1-3) Last Admin: 01/30/24 08:56 Dose: 650 mg Al Hydroxide/Mg Hydroxide (Magnesium Hydrox/Alum Hydrox 30 Ml Oral.Susp) 30 ml PO Q6H PRN PRN Reason: Heartburn/Nausea Clonidine HCl (Clonidine Hcl 0.1 Mg Tablet) 0.1 mg PO Q4H PRN; Protocol PRN Reason: moderate anxiety Last Admin: 01/28/24 08:40 Dose: 0.1 mg Divalproex Sodium (Divalproex Sodium Er 250 Mg Tab.Er.24h) 250 mg PO BEDTIME [facility] Last Admin: 01/30/24 21:46 Dose: 250 mg Famotidine (Famotidine 20 Mg Tablet) 20 mg PO BID [facility] Last Admin: 01/31/24 08:27 Dose: 20 mg Hydroxyzine HCl (Hydroxyzine Hcl 25 Mg Tablet) 25 mg PO Q6H PRN PRN Reason: Anxiety Last Admin: 01/28/24 08:40 Dose: 25 mg Lorazepam (Lorazepam 1 Mg Tablet) 1 mg PO TID [facility] Last Admin: 01/31/24 08:26 Dose: 1 mg Magnesium Hydroxide (Milk Of Magnesia 30 Ml Oral.Susp) 30 ml PO DAILY PRN PRN Reason: Constipation Last Admin: 01/30/24 08:56 Dose: 30 ml Nicotine (Nicotine 21 Mg Patch.Td24) 21 mg TRANSDERMA DAILY PRN PRN Reason: smoking cessation Nicotine Polacrilex (Nicotine Polacrilex 2 Mg Gum) 4 mg BUCCAL Q2H PRN PRN Reason: Nicotine Cravings Omeprazole (Omeprazole 20 Mg Capsule.Dr) 20 mg PO DAILY@0900 [facility] Last Admin: 01/31/24 08:26 Dose: 20 mg Trazodone HCl (Trazodone Hcl 50 Mg Tablet) 50 mg PO BEDTIME MRX1 PRN PRN Reason: Insomnia Allergies Allergies Allergy/AdvReac Type Severity Reaction Status Date / Time No Known Allergies Allergy Verified 01/25/24 15:14 Assessment & Plan Assessment & Plan (1) MDD (major depressive disorder), recurrent severe, without psychosis: Status: Acute Code(s): F33.2 - Major depressive disorder, recurrent severe without psychotic features (2) Anxiety: Status: Acute Code(s): F41.9 - Anxiety disorder, unspecified (3) Hx of gastroesophageal reflux (GERD): Status: Acute Code(s): Z87.19 - Personal history of other diseases of the digestive system Plan HPI: Patient is a 38-year-old male, 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 Patient is somewhat of a limited historian, giving only one-word answers to most questions, which are sometimes only indirectly relevant. Patient has no history of psychiatric care. He shared that his anxiety and depression started around 24 years old after a failed engagement. Patient said that he has had some level of depression for the past 15 years which seems to always get worse in the winter and again in the spring, lasting for few months and during which time (and currently) he stays in bed most of the day, does not attend to ADLs, has no interest in things, increased guilty feelings, low energy, poor concentration, low appetite and excessive sleep. In addition to his mother's illness and his springtime depression, patient said he made some bad financial decisions recently. 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 This recent incident worsened his depression and for the 1st time had suicidal thoughts and hopelessness. During interview, medical writer gently inquired regarding patient's tendency to give one-word answers. With that question, patient stopped talking completely... After sometime medical writer asked what patient was thinking but he remained reticent. After some more time medical writer proposed asking just yes or no questions to which patient agreed. He said yes to a series of questions which included that he is aware he stopped talking, knows why he stopped that it is because he is unsure if he is ready to disclose certain things he is thinking about. Patient denies AVH; denies any history of ruby or manic episodes; denies any history of overt trauma; denies any history of drug or alcohol abuse; denies any prior history of SI or SA. Tried to assess for OCD but patient unable to discuss. He is ready to start trying medications. 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 Patient has a long history of untreated anxiety and depression, never discussing any of his symptoms with anyone. He is ready to start treatment now and agrees to Prozac, clonidine after reviewing risks/side effects. Patient has both Depression and anxiety ASD? OCD? Bipolar? Hospital course: On admission, patient was depressed and anxious, talking and moving very little; during initial interview he suddenly stopped talking. He was started on Prozac for depression/anxiety (and risks/side effects reviewed) as well as clonidine; also started famotidine for refractory GERD. However, Over the weekend patient became catatonic. -differential dx catatonia vs psychosis; ativan 2mg TID PO and ativan 2mg IM prn if not taking PO for treatmetn of catatonia prozac discontinued I & O monitoring chemistry profile 01/29 differential dx OCD, ASD, Bipolar DO begin taper of ativan to limit disinhibition start Depakote ER 250 mg at bedtime pt has completely different presentation today; walking in hallway with sun glasses on; he is talkative with staff and peers; pt asks to talk to me and sits crossed legged on exam table in treatment room. He says i think i have a bipolar disorder...I think I have a compulsive disorder.. States he had been very depressed upon admission and afraid to talk. he tells me he has a shopping addiction. he buys too many things;says no relationship for 14 years so when he wants to feel happy he goes shopping at [employer]. he says he spent his money and his mother's money; he likes collectibles, video games, and movies. he once went shopping and came home with 15 bags of groceries. He says he buys scratch tickets but not as compulsively. He says his house is full of things like a hoarder. he says his mother likes collectibles and she collects tiny witches all over the house. pt states his sisters, grandmother and 2 nieces are all agoraphobic. he say his father got delusional and was hospitalized for months in 2003 after a mental breakdown. Pt states he thinks what he has might be genetic. He denies drug or alcohol use; he says he does spend money on online pornography but not excessive not like the shopping for things he does. he prefers to go to the store and buy thins when he is lonely. He reports frequent panic attacks; when asked about periods of elation he states approximately a month ago he felt like that; he tells me he was a terrible student- they put him in sped classes because he liked wood working more than academics. He has some interpersonal problems at work due to he and boss like the same woman. He says his boss badgers him for information about her. He says he often takes criticism personally and then gets obsessed about the opinion of someone else. He denies SI or HI. He denies A/V H 01/30 On admission patient stopped talking and over the weekend it became apparent he had become catatonic, not moving his position at all for hours and hours, not speaking, not eating, not drinking. Stockroom Coordinator discussed case in detail with covering provider who administered Ativan. Patient was started on Ativan 2 mg t.i.d. (1st dose patient just held in his mouth until it dissolve however Ativan was successful in helping catatonia quickly resolve and patient started moving, talking more; he continued to improve as Ativan was continued. Stockroom Coordinator discussed this with patient and he said he was aware that he had stopped talking and not moving; he said he was scared and felt like I was just locked up... He said nothing like that has ever happened before. Patient with mildly pressured speech when talking. Discussed psychiatric history in more detail and patient endorses history of mood lability, having crying spells that come out of no where and periodic struggles where he will spend excessive amounts of money and run into debt, which happened just prior to this admission. He also discussed in more detail his depressive episodes which could be severe but that he would still be able to push himself to go to work. Patient also wondered if he had autism, saying that there were people at work who were autistic and he found some similarities in how they interactive with others; patient shared that he often struggles to get jokes or sarcasm and has trouble reading interpersonal cues. Patient also does describes things in concrete terms making it difficult to discern if patient has actual manic episodes or if mood lability and spending sprees are due to an etiology other than bipolar ruby; he does say that his spending sprees coincide with loneliness. Patient shared that his father had history of excessive spending, compulsively spending money and at 1 point had a psychological break.. And when patient was a teenager, his father rapidly spent his 's inheritance of $100,000 dollars leaving them homeless. However, medical writer can not conclude whether or not his father's behavior was due to a bipolar disorder. -assessed for OCD and patient does not seem to meet criteria. -discussed diagnosis and medication regimen. He agrees to move back to Prozac which was discontinued over the weekend. -Patient gave permission to discussed case with his mother. Working formulation: Patient developed catatonia which thankfully was able to resolve with Ativan; will continue Ativan 1 mg t.i.d. for now, and taper slowly to make sure catatonia does not return At this time it seems less likely that patient has bipolar disorder and rather his symptoms are due to impulsivity and utilize as a coping strategy; he agrees to restart Prozac. That said, bipolar disorder remains a differential and still need to rule it out. Will discuss history with his mother to see if that can be more revealing. For now, patient certainly needs to remain on the unit to make sure catatonia does not return and that Prozac does not trigger him into ruby. Plan: CV Q 15 minute checks Will Restart Prozac 10 mg daily for depression/anxiety (at this time, it seems less likely that patient's symptoms are due to bipolar disorder; however will monitor closely to make sure he has not triggered into ruby) Discontinue Depakote Continue Ativan 1 mg t.i.d.; will taper but will do so slowly to make sure catatonia does not return Continue clonidine 0.1 mg Q 4 p.r.n. for anxiety Continue omeprazole 20 mg daily Started famotidine 20 mg b.i.d. to help with GERD; Patient reports years of Unrelenting GERD; has only tried [id number] Prilosec and has never gone to see a GI specialist; knows about possible H pylori infection and says he will discuss with his PCP. Patient educated on: diagnosis, medication risk/benefits and therapeutic strategies Informed Consent: understands and further education needed Reason for continued inpatient stay Substantial Risk for: inability to function and rapid decompensation Time Spent With Patient Time: Total time managing care of this patient today ____ minutes.
[2024-01-31] MEDS: FLUoxetine HCl 10 MG CAPSULE PO (17:14)
[2024-01-31 19:47] VITALS: BP 170/59; PULSE 116; RESP 16; TEMP 36.7; O2SAT 96
[2024-02-01 08:00] VITALS: BP 145/88; PULSE 97; RESP 20; TEMP 36.7; O2SAT 98
[2024-02-01] MEDS: Omeprazole 20 MG CAPSULE.DR PO (09:04)
[2024-02-01] MEDS: LORazepam 1 MG TABLET PO ×3 (09:04→21:26)
[2024-02-01] MEDS: FLUoxetine HCl 10 MG CAPSULE PO (09:04)
[2024-02-01] MEDS: Famotidine 20 MG TABLET PO ×2 (09:04→21:27)
[2024-02-01 18:06] LABS: Influenza A PCR NEGATIVE (Negative); Influenza B PCR NEGATIVE (Negative); Resp Syncy Virus RNA Qual PCR NEGATIVE (Negative); SARS COV2 PCR INHOUSE NEGATIVE (Negative)
[2024-02-01 20:00] VITALS: BP 148/93; PULSE 84; RESP 18; TEMP 36.5; O2SAT 95
--- NOTE | 2024-02-01 21:57 | P.PNPSI_ITS ---
Subjective Subjective Date of Service: 02/01/24 Reason For Visit: depression/ SI Interim History: Met with patient; discussed with team Remains anxious but less so and says he starting to feel better and that depression is less. Catatonia symptoms have not returned; patient understands that continued Ativan is likely helping reduce anxiety and that this will be tapered. Patient reports sleeping well enough and though intermittently has mildly pressured speech, no other manic symptoms apparent at this time. Patient reports tolerating Prozac without problems. Heartburn as a little less with famotidine added. Mental Status Exam Mental Status Exam Narrative: Pt is alert and oriented; behavior is cooperative, friendly and calm; patient is not in distress; dressed in hospital attire, wearing sunglasses, unkempt; mood is described as okay and affect congruent, more expressive, less blunted; eye contact appropriate; Speech is mildly pressured but normal rate and prosody; begins most sentences with the word no ; no psychomotor agitation/retardation present; thought process is goal directed but concrete and sometimes answers questions with parallel answers, related to the topic but not direct answers to the question; Thought content is on tx, diagnosis; otherwise pertinent to relevant topics and without any delusional content, paranoid ideations or grandiosity; denies any SI/HI. There is no evidence of perceptual disturbance and denies AVH. Patients insight and judgment impaired but seems to be improving. Diagnostics Vital Signs (24Hr): Vital Signs - 24 hr 02/01/24 08:00 Temperature 98.0 F Pulse Rate 97 Respiratory Rate 20 Blood Pressure 145/88 H Pulse Oximetry 98 Oxygen Delivery Method Room Air BMI result Body Mass Index 35.6 Labs 01/25/24 16:03 01/30/24 07:30 Labs: Laboratory Results - last 48 hr 02/01/24 Unknown Influenza Type A (PCR) NEGATIVE Influenza Type B (PCR) NEGATIVE RSV RNA Qual (PCR) NEGATIVE SARS-CoV-2 RNA (RT-PCR) NEGATIVE Medications Medications Current Medications Acetaminophen (Acetaminophen 325 Mg Tablet) 650 mg PO Q6H PRN PRN Reason: Headache/Pain Mild Scale (1-3) Last Admin: 01/30/24 08:56 Dose: 650 mg Al Hydroxide/Mg Hydroxide (Magnesium Hydrox/Alum Hydrox 30 Ml Oral.Susp) 30 ml PO Q6H PRN PRN Reason: Heartburn/Nausea Benzocaine (Throat Lozenge, Medicated Lozenge) 1 lozenge MUCOUS MEM Q2H PRN PRN Reason: Sore Throat Clonidine HCl (Clonidine Hcl 0.1 Mg Tablet) 0.1 mg PO Q4H PRN; Protocol PRN Reason: moderate anxiety Last Admin: 01/28/24 08:40 Dose: 0.1 mg Famotidine (Famotidine 20 Mg Tablet) 20 mg PO BID [facility] Last Admin: 02/01/24 21:27 Dose: 20 mg Fluoxetine HCl (Fluoxetine Hcl 10 Mg Capsule) 10 mg PO DAILY [facility] Last Admin: 02/01/24 09:04 Dose: 10 mg Hydroxyzine HCl (Hydroxyzine Hcl 25 Mg Tablet) 25 mg PO Q6H PRN PRN Reason: Anxiety Last Admin: 01/28/24 08:40 Dose: 25 mg Lorazepam (Lorazepam 1 Mg Tablet) 1 mg PO TID [facility] Last Admin: 02/01/24 21:26 Dose: 1 mg Magnesium Hydroxide (Milk Of Magnesia 30 Ml Oral.Susp) 30 ml PO DAILY PRN PRN Reason: Constipation Last Admin: 01/30/24 08:56 Dose: 30 ml Nicotine (Nicotine 21 Mg Patch.Td24) 21 mg TRANSDERMA DAILY PRN PRN Reason: smoking cessation Nicotine Polacrilex (Nicotine Polacrilex 2 Mg Gum) 4 mg BUCCAL Q2H PRN PRN Reason: Nicotine Cravings Omeprazole (Omeprazole 20 Mg Capsule.Dr) 20 mg PO DAILY@0900 [facility] Last Admin: 02/01/24 09:04 Dose: 20 mg Trazodone HCl (Trazodone Hcl 50 Mg Tablet) 50 mg PO BEDTIME MRX1 PRN PRN Reason: Insomnia Allergies Allergies Allergy/AdvReac Type Severity Reaction Status Date / Time No Known Allergies Allergy Verified 01/25/24 15:14 Assessment & Plan Assessment & Plan (1) MDD (major depressive disorder), recurrent severe, without psychosis: Status: Acute Code(s): F33.2 - Major depressive disorder, recurrent severe without psychotic features (2) Anxiety: Status: Acute Code(s): F41.9 - Anxiety disorder, unspecified (3) Catatonia: Status: Acute Code(s): F06.1 - Catatonic disorder due to known physiological condition Assessment and Plan: Resolving with Ativan (4) Hx of gastroesophageal reflux (GERD): Status: Acute Code(s): Z87.19 - Personal history of other diseases of the digestive system Plan HPI: Patient is a 38-year-old male, 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 Patient is somewhat of a limited historian, giving only one-word answers to most questions, which are sometimes only indirectly relevant. Patient has no history of psychiatric care. He shared that his anxiety and depression started around 24 years old after a failed engagement. Patient said that he has had some level of depression for the past 15 years which seems to always get worse in the winter and again in the spring, lasting for few months and during which time (and currently) he stays in bed most of the day, does not attend to ADLs, has no interest in things, increased guilty feelings, low energy, poor concentration, low appetite and excessive sleep. In addition to his mother's illness and his springtime depression, patient said he made some bad financial decisions recently. He was vague and it's not totally clear what happened but he apparently went on the Internet and took a pay day, internet[place] loan for total of $3200 at an exorbitant interest rate which he tried to pay back but somehow thinks he scammed and needs a grain mill products inspector. This recent incident worsened his depression and for the 1st time had suicidal thoughts and hopelessness. During interview, journalists and other writers gently inquired regarding patient's tendency to give one-word answers. With that question, patient stopped talking completely... After sometime journalists and other writers asked what patient was thinking but he remained reticent. After some more time journalists and other writers proposed asking just yes or no questions to which patient agreed. He said yes to a series of questions which included that he is aware he stopped talking, knows why he stopped that it is because he is unsure if he is ready to disclose certain things he is thinking about. Patient denies AVH; denies any history of ruby or manic episodes; denies any history of overt trauma; denies any history of drug or alcohol abuse; denies any prior history of SI or SA. Tried to assess for OCD but patient unable to discuss. He is ready to start trying medications. 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 Patient has a long history of untreated anxiety and depression, never discussing any of his symptoms with anyone. He is ready to start treatment now and agrees to Prozac, clonidine after reviewing risks/side effects. Patient has both Depression and anxiety ASD? OCD? Bipolar? Hospital course: On admission, patient was depressed and anxious, talking and moving very little; during initial interview he suddenly stopped talking. He was started on Prozac for depression/anxiety (and risks/side effects reviewed) as well as clonidine; also started famotidine for refractory GERD. However, Over the weekend patient became catatonic. -differential dx catatonia vs psychosis; ativan 2mg TID PO and ativan 2mg IM prn if not taking PO for treatmetn of catatonia prozac discontinued I & O monitoring chemistry profile 01/29 differential dx OCD, ASD, Bipolar DO begin taper of ativan to limit disinhibition start Depakote ER 250 mg at bedtime pt has completely different presentation today; walking in hallway with sun glasses on; he is talkative with staff and peers; pt asks to talk to me and sits crossed legged on exam table in treatment room. He says i think i have a bipolar disorder...I think I have a compulsive disorder.. States he had been very depressed upon admission and afraid to talk. he tells me he has a shopping addiction. he buys too many things;says no relationship for 14 years so when he wants to feel happy he goes shopping at [employer]. he says he spent his money and his mother's money; he likes collect[employer], video games, and movies. he once went shopping and came home with 15 bags of groceries. He says he buys scratch tickets but not as compulsively. He says his house is full of things like a hoarder. he says his mother likes collectibles and she collects tiny witches all over the house. pt states his sisters, grandmother and 2 nieces are all agoraphobic. he say his father got delusional and was hospitalized for months in 2003 after a mental breakdown. Pt states he thinks what he has might be genetic. He denies drug or alcohol use; he says he does spend money on online pornography but not excessive not like the shopping for things he does. he prefers to go to the store and buy thins when he is lonely. He reports frequent panic attacks; when asked about periods of elation he states approximately a month ago he felt like that; he tells me he was a terrible student- they put him in sped classes because he liked wood working more than academics. He has some interpersonal problems at work due to he and boss like the same woman. He says his boss badgers him for information about her. He says he often takes criticism personally and then gets obsessed about the opinion of someone else. He denies SI or HI. He denies A/V H 01/30 On admission patient stopped talking and over the weekend it became apparent he had become catatonic, not moving his position at all for hours and hours, not speaking, not eating, not drinking. Stiff Leg Operator discussed case in detail with covering provider who administered Ativan. Patient was started on Ativan 2 mg t.i.d. (1st dose patient just held in his mouth until it dissolve however Ativan was successful in helping catatonia quickly resolve and patient started moving, talking more; he continued to improve as Ativan was continued. Stiff Leg Operator discussed this with patient and he said he was aware that he had stopped talking and not moving; he said he was scared and felt like I was just locked up... He said nothing like that has ever happened before. Patient with mildly pressured speech when talking. Discussed psychiatric history in more detail and patient endorses history of mood lability, having crying spells that come out of no where and periodic struggles where he will spend excessive amounts of money and run into debt, which happened just prior to this admission. He also discussed in more detail his depressive episodes which could be severe but that he would still be able to push himself to go to work. Patient also wondered if he had autism, saying that there were people at work who were autistic and he found some similarities in how they interactive with others; patient shared that he often struggles to get jokes or sarcasm and has trouble reading interpersonal cues. Patient also does describes things in concrete terms making it difficult to discern if patient has actual manic episodes or if mood lability and spending sprees are due to an etiology other than bipolar ruby; he does say that his spending sprees coincide with loneliness. Patient shared that his father had history of excessive spending, compulsively spending money and at 1 point had a psychological break.. And when patient was a teenager, his father rapidly spent his 's inheritance of $100,000 dollars leaving them homeless. However, journalists and other writers can not conclude whether or not his father's behavior was due to a bipolar disorder. -assessed for OCD and patient does not seem to meet criteria. -discussed diagnosis and medication regimen. He agrees to move back to Prozac which was discontinued over the weekend. -Patient gave permission to discussed case with his mother. 01/31 Remains anxious but less so and says he starting to feel better and that depression is less. Catatonia symptoms have not returned; patient understands that continued Ativan is likely helping reduce anxiety and that this will be tapered. Patient reports sleeping well enough and though intermittently has mildly pressured speech, no other manic symptoms apparent at this time. Patient reports tolerating Prozac without problems. Heartburn as a little less with famotidine added. -some trouble procuring mother's phone number but have now been able to get it; will call Working formulation: Patient developed catatonia which was able to resolve with Ativan; will continue Ativan 1 mg t.i.d. for now, and taper slowly to make sure catatonia does not return At this time it seems less likely that patient has bipolar disorder and rather his symptoms are due to impulsivity and utilize as a coping strategy; he agrees to restart Prozac. That said, bipolar disorder remains a differential and still need to rule it out. Will discuss history with his mother to see if that can be more revealing. For now, patient certainly needs to remain on the unit to make sure catatonia does not return and that Prozac does not trigger him into ruby. Plan: CV Q 15 minute checks Continue Prozac 10 mg daily for depression/anxiety (at this time, it seems less likely that patient's symptoms are due to bipolar disorder; however will monitor closely to make sure he has not triggered into ruby) Discontinue Depakote Continue Ativan 1 mg t.i.d.; will taper but will do so slowly to make sure catatonia does not return Continue clonidine 0.1 mg Q 4 p.r.n. for anxiety Continue omeprazole 20 mg daily Started famotidine 20 mg b.i.d. to help with GERD; Patient reports years of Unrelenting GERD; has only tried [id number] Prilosec and has never gone to see a GI specialist; knows about possible H pylori infection and says he will discuss with his PCP. Patient educated on: diagnosis, medication risk/benefits and therapeutic strategies Informed Consent: understands Reason for continued inpatient stay Substantial Risk for: rapid decompensation Time Spent With Patient Time: Total time managing care of this patient today ____ minutes.
[2024-02-02 07:00] VITALS: BMI 39.1
[2024-02-02 08:00] VITALS: BP 143/87; PULSE 91; RESP 18; TEMP 36.8; O2SAT 95
[2024-02-02] MEDS: LORazepam 1 MG TABLET PO ×2 (08:32→14:01)
[2024-02-02] MEDS: Famotidine 20 MG TABLET PO ×2 (08:32→22:56)
[2024-02-02] MEDS: Omeprazole 20 MG CAPSULE.DR PO (08:32)
[2024-02-02] MEDS: FLUoxetine HCl 10 MG CAPSULE PO (08:32)
--- NOTE | 2024-02-02 10:38 | HO.PSYCHPN ---
Subjective Subjective Date of Service: 02/02/24 Reason For Visit: depression/ SI Interim History: Met with patient; discussed with team reports feeling better; no manic symptoms, sleeping better. Patient expresses hope that he is going to be able to return to his regular self and that this event will not happen again. Patient asked why scenario writer thought he decompensated and both discussed patient's history of keeping his feelings and experiences private and however time they can build up and become problematic. Discussed hypertension and patient agreed to start lisinopril, reviewed risks/side effects. Patient says he is eager for therapy post discharge. Agrees to continue tapering down Ativan. Mental Status Exam Mental Status Exam Narrative: Pt is alert and oriented; behavior is cooperative, friendly and calm; patient is not in distress; dressed in hospital attire, wearing sunglasses, unkempt; mood is described as good and affect congruent, more expressive; eye contact appropriate; Speech is mildly pressured but normal rate and prosody; begins most sentences with the word no ; no psychomotor agitation/retardation present; thought process is goal directed but concrete and sometimes answers questions with parallel answers, related to the topic but not direct answers to the question-but much less so; Thought content is on tx, diagnosis; otherwise pertinent to relevant topics and without any delusional content, paranoid ideations or grandiosity; denies any SI/HI. There is no evidence of perceptual disturbance and denies AVH. Patients insight and judgment much improved and fair Diagnostics Vital Signs (24Hr): Vital Signs - 24 hr 02/01/24 20:00 Temperature 97.7 F Pulse Rate 84 Respiratory Rate 18 Blood Pressure 148/93 H Pulse Oximetry 95 Oxygen Delivery Method Room Air BMI result Body Mass Index 35.6 Labs 01/25/24 16:03 01/30/24 07:30 Labs: Laboratory Results - last 48 hr 02/01/24 Unknown Influenza Type A (PCR) NEGATIVE Influenza Type B (PCR) NEGATIVE RSV RNA Qual (PCR) NEGATIVE SARS-CoV-2 RNA (RT-PCR) NEGATIVE Medications Medications Current Medications Acetaminophen (Acetaminophen 325 Mg Tablet) 650 mg PO Q6H PRN PRN Reason: Headache/Pain Mild Scale (1-3) Last Admin: 01/30/24 08:56 Dose: 650 mg Al Hydroxide/Mg Hydroxide (Magnesium Hydrox/Alum Hydrox 30 Ml Oral.Susp) 30 ml PO Q6H PRN PRN Reason: Heartburn/Nausea Benzocaine (Throat Lozenge, Medicated Lozenge) 1 lozenge MUCOUS MEM Q2H PRN PRN Reason: Sore Throat Clonidine HCl (Clonidine Hcl 0.1 Mg Tablet) 0.1 mg PO Q4H PRN; Protocol PRN Reason: moderate anxiety Last Admin: 01/28/24 08:40 Dose: 0.1 mg Famotidine (Famotidine 20 Mg Tablet) 20 mg PO BID [facility] Last Admin: 02/02/24 08:32 Dose: 20 mg Fluoxetine HCl (Fluoxetine Hcl 10 Mg Capsule) 10 mg PO DAILY [facility] Last Admin: 02/02/24 08:32 Dose: 10 mg Hydroxyzine HCl (Hydroxyzine Hcl 25 Mg Tablet) 25 mg PO Q6H PRN PRN Reason: Anxiety Last Admin: 01/28/24 08:40 Dose: 25 mg Lorazepam (Lorazepam 1 Mg Tablet) 1 mg PO TID [facility] Last Admin: 02/02/24 08:32 Dose: 1 mg Magnesium Hydroxide (Milk Of Magnesia 30 Ml Oral.Susp) 30 ml PO DAILY PRN PRN Reason: Constipation Last Admin: 01/30/24 08:56 Dose: 30 ml Nicotine (Nicotine 21 Mg Patch.Td24) 21 mg TRANSDERMA DAILY PRN PRN Reason: smoking cessation Nicotine Polacrilex (Nicotine Polacrilex 2 Mg Gum) 4 mg BUCCAL Q2H PRN PRN Reason: Nicotine Cravings Omeprazole (Omeprazole 20 Mg Capsule.Dr) 20 mg PO DAILY@0900 [facility] Last Admin: 02/02/24 08:32 Dose: 20 mg Trazodone HCl (Trazodone Hcl 50 Mg Tablet) 50 mg PO BEDTIME MRX1 PRN PRN Reason: Insomnia Allergies Allergies Allergy/AdvReac Type Severity Reaction Status Date / Time No Known Allergies Allergy Verified 01/25/24 15:14 Assessment & Plan Assessment & Plan (1) MDD (major depressive disorder), recurrent severe, without psychosis: Status: Acute Code(s): F33.2 - Major depressive disorder, recurrent severe without psychotic features (2) Anxiety: Status: Acute Code(s): F41.9 - Anxiety disorder, unspecified (3) Catatonia: Status: Acute Code(s): F06.1 - Catatonic disorder due to known physiological condition Assessment and Plan: Resolving with Ativan (4) Hx of gastroesophageal reflux (GERD): Status: Acute Code(s): Z87.19 - Personal history of other diseases of the digestive system Plan HPI: Patient is a 38-year-old male, 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 Patient is somewhat of a limited historian, giving only one-word answers to most questions, which are sometimes only indirectly relevant. Patient has no history of psychiatric care. He shared that his anxiety and depression started around 24 years old after a failed engagement. Patient said that he has had some level of depression for the past 15 years which seems to always get worse in the winter and again in the spring, lasting for few months and during which time (and currently) he stays in bed most of the day, does not attend to ADLs, has no interest in things, increased guilty feelings, low energy, poor concentration, low appetite and excessive sleep. In addition to his mother's illness and his springtime depression, patient said he made some bad financial decisions recently. He was vague and it's not totally clear what happened but he apparently went on the Internet and took a pay day, internet[place] for total of $3200 at an exorbitant interest rate which he tried to pay back but somehow thinks he scammed and needs a marine [employer] task [employer] planners. This recent incident worsened his depression and for the 1st time had suicidal thoughts and hopelessness. During interview, scenario writer gently inquired regarding patient's tendency to give one-word answers. With that question, patient stopped talking completely... After sometime scenario writer asked what patient was thinking but he remained reticent. After some more time scenario writer proposed asking just yes or no questions to which patient agreed. He said yes to a series of questions which included that he is aware he stopped talking, knows why he stopped that it is because he is unsure if he is ready to disclose certain things he is thinking about. Patient denies AVH; denies any history of ruby or manic episodes; denies any history of overt trauma; denies any history of drug or alcohol abuse; denies any prior history of SI or SA. Tried to assess for OCD but patient unable to discuss. He is ready to start trying medications. 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 Patient has a long history of untreated anxiety and depression, never discussing any of his symptoms with anyone. He is ready to start treatment now and agrees to Prozac, clonidine after reviewing risks/side effects. Patient has both Depression and anxiety ASD? OCD? Bipolar? Hospital course: On admission, patient was depressed and anxious, talking and moving very little; during initial interview he suddenly stopped talking. He was started on Prozac for depression/anxiety (and risks/side effects reviewed) as well as clonidine; also started famotidine for refractory GERD. However, Over the weekend patient became catatonic. -differential dx catatonia vs psychosis; ativan 2mg TID PO and ativan 2mg IM prn if not taking PO for treatmetn of catatonia prozac discontinued I & O monitoring chemistry profile 01/29 differential dx OCD, ASD, Bipolar DO begin taper of ativan to limit disinhibition start Depakote ER 250 mg at bedtime pt has completely different presentation today; walking in hallway with sun glasses on; he is talkative with staff and peers; pt asks to talk to me and sits crossed legged on exam table in treatment room. He says i think i have a bipolar disorder...I think I have a compulsive disorder.. States he had been very depressed upon admission and afraid to talk. he tells me he has a shopping addiction. he buys too many things;says no relationship for 14 years so when he wants to feel happy he goes shopping at [employer]. he says he spent his money and his mother's money; he likes collectibles, video games, and movies. he once went shopping and came home with 15 bags of groceries. He says he buys scratch tickets but not as compulsively. He says his house is full of things like a hoarder. he says his mother likes collectibles and she collects tiny witches all over the house. pt states his sisters, grandmother and 2 nieces are all agoraphobic. he say his father got delusional and was hospitalized for months in 2003 after a mental breakdown. Pt states he thinks what he has might be genetic. He denies drug or alcohol use; he says he does spend money on online pornography but not excessive not like the shopping for things he does. he prefers to go to the store and buy thins when he is lonely. He reports frequent panic attacks; when asked about periods of elation he states approximately a month ago he felt like that; he tells me he was a terrible student- they put him in sped classes because he liked wood working more than academics. He has some interpersonal problems at work due to he and boss like the same woman. He says his boss badgers him for information about her. He says he often takes criticism personally and then gets obsessed about the opinion of someone else. He denies SI or HI. He denies A/V H 01/30 On admission patient stopped talking and over the weekend it became apparent he had become catatonic, not moving his position at all for hours and hours, not speaking, not eating, not drinking. Materials Scheduler discussed case in detail with covering provider who administered Ativan. Patient was started on Ativan 2 mg t.i.d. (1st dose patient just held in his mouth until it dissolve however Ativan was successful in helping catatonia quickly resolve and patient started moving, talking more; he continued to improve as Ativan was continued. Materials Scheduler discussed this with patient and he said he was aware that he had stopped talking and not moving; he said he was scared and felt like I was just locked up... He said nothing like that has ever happened before. Patient with mildly pressured speech when talking. Discussed psychiatric history in more detail and patient endorses history of mood lability, having crying spells that come out of no where and periodic struggles where he will spend excessive amounts of money and run into debt, which happened just prior to this admission. He also discussed in more detail his depressive episodes which could be severe but that he would still be able to push himself to go to work. Patient also wondered if he had autism, saying that there were people at work who were autistic and he found some similarities in how they interactive with others; patient shared that he often struggles to get jokes or sarcasm and has trouble reading interpersonal cues. Patient also does describes things in concrete terms making it difficult to discern if patient has actual manic episodes or if mood lability and spending sprees are due to an etiology other than bipolar ruby; he does say that his spending sprees coincide with loneliness. Patient shared that his father had history of excessive spending, compulsively spending money and at 1 point had a psychological break.. And when patient was a teenager, his father rapidly spent his 's inheritance of $100,000 dollars leaving them homeless. However, scenario writer can not conclude whether or not his father's behavior was due to a bipolar disorder. -assessed for OCD and patient does not seem to meet criteria. -discussed diagnosis and medication regimen. He agrees to move back to Prozac which was discontinued over the weekend. -Patient gave permission to discussed case with his mother. 01/31 Remains anxious but less so and says he starting to feel better and that depression is less. Catatonia symptoms have not returned; patient understands that continued Ativan is likely helping reduce anxiety and that this will be tapered. Patient reports sleeping well enough and though intermittently has mildly pressured speech, no other manic symptoms apparent at this time. Patient reports tolerating Prozac without problems. Heartburn as a little less with famotidine added. -some trouble procuring mother's phone number but have now been able to get it; will call 02/02 reports feeling better; no manic symptoms, sleeping better. Patient expresses hope that he is going to be able to return to his regular self and that this event will not happen again. Patient asked why scenario writer thought he decompensated and both discussed patient's history of keeping his feelings and experiences private and however time they can build up and become problematic. Discussed hypertension and patient agreed to start lisinopril, reviewed risks/side effects. Patient says he is eager for therapy post discharge. Agrees to continue tapering down Ativan. -says GERD less problematic with famotidine Working formulation: Patient developed catatonia which was able to resolve with Ativan; will continue Ativan 1 mg t.i.d. for now, and taper slowly to make sure catatonia does not return At this time it seems less likely that patient has bipolar disorder and rather his symptoms are due to impulsivity and utilize as a coping strategy; he agrees to restart Prozac. That said, bipolar disorder remains a differential and still need to rule it out. Will discuss history with his mother to see if that can be more revealing. For now, patient certainly needs to remain on the unit to make sure catatonia does not return and that Prozac does not trigger him into ruby. Plan: CV Q 15 minute checks Continue Prozac 10 mg daily for depression/anxiety (at this time, it seems less likely that patient's symptoms are due to bipolar disorder; however will monitor closely to make sure he has not triggered into ruby) Discontinue Depakote Taper off Ativan Continue clonidine 0.1 mg Q 4 p.r.n. for anxiety Continue omeprazole 20 mg daily Continue famotidine 20 mg b.i.d. to help with GERD; Patient reports years of Unrelenting GERD; has only tried [id number] Prilosec and has never gone to see a GI specialist; knows about possible H pylori infection and says he will discuss with his PCP. Patient educated on: diagnosis, medication risk/benefits, therapeutic strategies and medical condition Informed Consent: understands Reason for continued inpatient stay Substantial Risk for: stable for discharge Time Spent With Patient Time: Total time managing care of this patient today ____ minutes.
[2024-02-02] MEDS: Acetaminophen 325 MG TABLET 650 MG PO ×2 (14:00→22:56)
[2024-02-02] MEDS: Throat Lozenge, Medicated LOZENGE 1 LOZENGE MUCOUS MEM (14:01)
[2024-02-02 14:55] LABS: IDNOW Serial# 08D9AD1C; Strep A Nucleic Acid Negative (Negative)
[2024-02-02 22:14] VITALS: BP 171/91; PULSE 104; TEMP 36.2; O2SAT 98
[2024-02-02] MEDS: LORazepam 0.5 MG TABLET PO (22:56)
[2024-02-03] MEDS: Throat Lozenge, Medicated LOZENGE 1 LOZENGE MUCOUS MEM ×2 (01:17→08:55)
[2024-02-03] MEDS: traZODone HCL 50 MG TABLET PO ×2 (01:17→20:29)
[2024-02-03 08:00] VITALS: BP 147/94; PULSE 99; RESP 18; TEMP 36.7; O2SAT 98
[2024-02-03] MEDS: Omeprazole 20 MG CAPSULE.DR PO (08:52)
[2024-02-03] MEDS: LORazepam 0.5 MG TABLET PO ×3 (08:52→20:29)
[2024-02-03] MEDS: FLUoxetine HCl 10 MG CAPSULE PO (08:52)
[2024-02-03] MEDS: Famotidine 20 MG TABLET PO ×2 (08:52→20:29)
[2024-02-03] MEDS: Lidocaine 4 % Patch ADH..PATCH 1 PATCH TRANSDERMA (08:55)
[2024-02-03] MEDS: lisinopriL 5 MG TABLET PO (16:36)
[2024-02-03 20:00] VITALS: BP 177/98; PULSE 106; RESP 18; TEMP 36.8; O2SAT 94
[2024-02-03 20:31] VITALS: BP 182/98
[2024-02-03] MEDS: hydrOXYzine HCL 25 MG TABLET PO (20:31)
[2024-02-03] MEDS: cloNIDine HCL 0.1 MG TABLET PO (20:31)
[2024-02-04 08:00] VITALS: BP 156/96; PULSE 97; TEMP 36.6; O2SAT 97
[2024-02-04 08:45] VITALS: BP 156/96
[2024-02-04] MEDS: lisinopriL 5 MG TABLET PO (08:45)
[2024-02-04] MEDS: Famotidine 20 MG TABLET PO ×2 (08:46→21:10)
[2024-02-04] MEDS: FLUoxetine HCl 10 MG CAPSULE PO (08:46)
[2024-02-04] MEDS: LORazepam 0.5 MG TABLET PO ×3 (08:46→21:11)
[2024-02-04] MEDS: Omeprazole 20 MG CAPSULE.DR PO (12:01)
--- NOTE | 2024-02-04 18:28 | P.PNPSI_ITS ---
Subjective Subjective Date of Service: 02/04/24 Reason For Visit: depression/ SI Interim History: Pt is visable in the milieu, active and social with his peers. He denies issues of concern and appears well engaged and supportive of others and supported on the unit. He responds, I am trying when tx is discussed. Medication Compliance: Yes Side effects from medications: No Attending Groups: Yes Review of Systems Acute medical concerns: No Medical Review of Systems: unchanged Review of Systems Review of Systems Yes all other systems are reviewed and are negative (denies) Mental Status Exam Mental Status Exam Patient Appearance: Appropriate Patient Orientation: Person, Place, Time and Situation Level of Consciousness: Alert Patient Behavior: Appropriate, Talkative and Good Eye Contact Mood Description: Anxious Affect Description: Anxious Patient Cognition Impaired: No Ability to Follow Directions: Good Speech Pattern: Spontaneous Speech Memory Description: Intact Judgement: Fair Diagnostics Vital Signs (24Hr): Vital Signs - 24 hr 02/03/24 20:00 02/03/24 20:31 02/04/24 08:00 Temperature 98.2 F 98 F Pulse Rate 106 H 97 Respiratory Rate 18 Blood Pressure 177/98 H 182/98 H 156/96 H Pulse Oximetry 94 97 Oxygen Delivery Method Room Air Room Air 02/04/24 08:45 Temperature Pulse Rate Respiratory Rate Blood Pressure 156/96 H Pulse Oximetry Oxygen Delivery Method BMI result Body Mass Index 39.1 Labs 01/25/24 16:03 01/30/24 07:30 Medications Medications Current Medications Acetaminophen (Acetaminophen 325 Mg Tablet) 650 mg PO Q6H PRN PRN Reason: Headache/Pain Mild Scale (1-3) Last Admin: 02/02/24 22:56 Dose: 650 mg Al Hydroxide/Mg Hydroxide (Magnesium Hydrox/Alum Hydrox 30 Ml Oral.Susp) 30 ml PO Q6H PRN PRN Reason: Heartburn/Nausea Benzocaine (Throat Lozenge, Medicated Lozenge) 1 lozenge MUCOUS MEM Q2H PRN PRN Reason: Sore Throat Last Admin: 02/03/24 08:55 Dose: 1 lozenge Clonidine HCl (Clonidine Hcl 0.1 Mg Tablet) 0.1 mg PO Q4H PRN; Protocol PRN Reason: moderate anxiety Last Admin: 02/03/24 20:31 Dose: 0.1 mg Famotidine (Famotidine 20 Mg Tablet) 20 mg PO BID BRIAN Last Admin: 02/04/24 08:46 Dose: 20 mg Fluoxetine HCl (Fluoxetine Hcl 10 Mg Capsule) 10 mg PO DAILY [facility] Last Admin: 02/04/24 08:46 Dose: 10 mg Hydroxyzine HCl (Hydroxyzine Hcl 25 Mg Tablet) 25 mg PO Q6H PRN PRN Reason: Anxiety Last Admin: 02/03/24 20:31 Dose: 25 mg Lidocaine (Lidocaine 4 % Patch Adh..Patch) 1 patch TRANSDERMA DAILY PRN; Protocol PRN Reason: lower back pain Last Admin: 02/03/24 08:55 Dose: 1 patch Lisinopril (Lisinopril 5 Mg Tablet) 5 mg PO DAILY [facility]; Protocol Last Admin: 02/04/24 08:45 Dose: 5 mg Lorazepam (Lorazepam 0.5 Mg Tablet) 0.5 mg PO TID [facility] Last Admin: 02/04/24 15:43 Dose: 0.5 mg Magnesium Hydroxide (Milk Of Magnesia 30 Ml Oral.Susp) 30 ml PO DAILY PRN PRN Reason: Constipation Last Admin: 01/30/24 08:56 Dose: 30 ml Nicotine (Nicotine 21 Mg Patch.Td24) 21 mg TRANSDERMA DAILY PRN PRN Reason: smoking cessation Nicotine Polacrilex (Nicotine Polacrilex 2 Mg Gum) 4 mg BUCCAL Q2H PRN PRN Reason: Nicotine Cravings Omeprazole (Omeprazole 20 Mg Capsule.Dr) 20 mg PO DAILY@0900 [facility] Last Admin: 02/04/24 12:01 Dose: 20 mg Trazodone HCl (Trazodone Hcl 50 Mg Tablet) 50 mg PO BEDTIME MRX1 PRN PRN Reason: Insomnia Last Admin: 02/03/24 20:29 Dose: 50 mg Allergies Allergies Allergy/AdvReac Type Severity Reaction Status Date / Time No Known Allergies Allergy Verified 01/25/24 15:14 Assessment & Plan Assessment & Plan (1) MDD (major depressive disorder), recurrent severe, without psychosis: Status: Acute Code(s): F33.2 - Major depressive disorder, recurrent severe without psychotic features (2) Anxiety: Status: Acute Code(s): F41.9 - Anxiety disorder, unspecified (3) Catatonia: Status: Acute Code(s): F06.1 - Catatonic disorder due to known physiological condition Assessment and Plan: Resolving with Ativan (4) Hx of gastroesophageal reflux (GERD): Status: Acute Code(s): Z87.19 - Personal history of other diseases of the digestive system Plan HPI: Patient is a 38-year-old male, 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 Patient is somewhat of a limited historian, giving only one-word answers to most questions, which are sometimes only indirectly relevant. Patient has no history of psychiatric care. He shared that his anxiety and depression started around 24 years old after a failed engagement. Patient said that he has had some level of depression for the past 15 years which seems to always get worse in the winter and again in the spring, lasting for few months and during which time (and currently) he stays in bed most of the day, does not attend to ADLs, has no interest in things, increased guilty feelings, low energy, poor concentration, low appetite and excessive sleep. In addition to his mother's illness and his springtime depression, patient said he made some bad financial decisions recently. He was vague and it's not totally clear what happened but he apparently went on the Internet and took a pay day, internet[employer] loan for total of $3200 at an exorbitant interest rate which he tried to pay back but somehow thinks he scammed and needs a motorcycle repair shop supervisor. This recent incident worsened his depression and for the 1st time had suicidal thoughts and hopelessness. During interview, telegraphic typewriter repairer gently inquired regarding patient's tendency to give one-word answers. With that question, patient stopped talking completely... After sometime telegraphic typewriter repairer asked what patient was thinking but he remained reticent. After some more time telegraphic typewriter repairer proposed asking just yes or no questions to which patient agreed. He said yes to a series of questions which included that he is aware he stopped talking, knows why he stopped that it is because he is unsure if he is ready to disclose certain things he is thinking about. Patient denies AVH; denies any history of ruby or manic episodes; denies any history of overt trauma; denies any history of drug or alcohol abuse; denies any prior history of SI or SA. Tried to assess for OCD but patient unable to discuss. He is ready to start trying medications. 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 Patient has a long history of untreated anxiety and depression, never discussing any of his symptoms with anyone. He is ready to start treatment now and agrees to Prozac, clonidine after reviewing risks/side effects. Patient has both Depression and anxiety ASD? OCD? Bipolar? Hospital course: On admission, patient was depressed and anxious, talking and moving very little; during initial interview he suddenly stopped talking. He was started on Prozac for depression/anxiety (and risks/side effects reviewed) as well as clonidine; also started famotidine for refractory GERD. However, Over the weekend patient became catatonic. -differential dx catatonia vs psychosis; ativan 2mg TID PO and ativan 2mg IM prn if not taking PO for treatmetn of catatonia prozac discontinued I & O monitoring chemistry profile 01/29 differential dx OCD, ASD, Bipolar DO begin taper of ativan to limit disinhibition start Depakote ER 250 mg at bedtime pt has completely different presentation today; walking in hallway with sun glasses on; he is talkative with staff and peers; pt asks to talk to me and sits crossed legged on exam table in treatment room. He says i think i have a bipolar disorder...I think I have a compulsive disorder.. States he had been very depressed upon admission and afraid to talk. he tells me he has a shopping addiction. he buys too many things;says no relationship for 14 years so when he wants to feel happy he goes shopping at [employer]. he says he spent his money and his mother's money; he likes collectibabyboxs, video games, and movies. he once went shopping and came home with 15 bags of groceries. He says he buys scratch tickets but not as compulsively. He says his house is full of things like a hoarder. he says his mother likes collectibles and she collects tiny witches all over the house. pt states his sisters, grandmother and 2 nieces are all agoraphobic. he say his father got delusional and was hospitalized for months in 2003 after a mental breakdown. Pt states he thinks what he has might be genetic. He denies drug or alcohol use; he says he does spend money on online pornography but not excessive not like the shopping for things he does. he prefers to go to the store and buy thins when he is lonely. He reports frequent panic attacks; when asked about periods of elation he states approximately a month ago he felt like that; he tells me he was a terrible student- they put him in sped classes because he liked wood working more than academics. He has some interpersonal problems at work due to he and boss like the same woman. He says his boss badgers him for information about her. He says he often takes criticism personally and then gets obsessed about the opinion of someone else. He denies SI or HI. He denies A/V H 01/30 On admission patient stopped talking and over the weekend it became apparent he had become catatonic, not moving his position at all for hours and hours, not speaking, not eating, not drinking. Wood Room Supervisor discussed case in detail with covering provider who administered Ativan. Patient was started on Ativan 2 mg t.i.d. (1st dose patient just held in his mouth until it dissolve however Ativan was successful in helping catatonia quickly resolve and patient started moving, talking more; he continued to improve as Ativan was continued. Wood Room Supervisor discussed this with patient and he said he was aware that he had stopped talking and not moving; he said he was scared and felt like I was just locked up... He said nothing like that has ever happened before. Patient with mildly pressured speech when talking. Discussed psychiatric history in more detail and patient endorses history of mood lability, having crying spells that come out of no where and periodic struggles where he will spend excessive amounts of money and run into debt, which happened just prior to this admission. He also discussed in more detail his depressive episodes which could be severe but that he would still be able to push himself to go to work. Patient also wondered if he had autism, saying that there were people at work who were autistic and he found some similarities in how they interactive with others; patient shared that he often struggles to get jokes or sarcasm and has trouble reading interpersonal cues. Patient also does describes things in concrete terms making it difficult to discern if patient has actual manic episodes or if mood lability and spending sprees are due to an etiology other than bipolar ruby; he does say that his spending sprees coincide with loneliness. Patient shared that his father had history of excessive spending, compulsively spending money and at 1 point had a psychological break.. And when patient was a teenager, his father rapidly spent his 's inheritance of $100,000 dollars leaving them homeless. However, telegraphic typewriter repairer can not conclude whether or not his father's behavior was due to a bipolar disorder. -assessed for OCD and patient does not seem to meet criteria. -discussed diagnosis and medication regimen. He agrees to move back to Prozac which was discontinued over the weekend. -Patient gave permission to discussed case with his mother. 01/31 Remains anxious but less so and says he starting to feel better and that depression is less. Catatonia symptoms have not returned; patient understands that continued Ativan is likely helping reduce anxiety and that this will be tapered. Patient reports sleeping well enough and though intermittently has mildly pressured speech, no other manic symptoms apparent at this time. Patient reports tolerating Prozac without problems. Heartburn as a little less with famotidine added. -some trouble procuring mother's phone number but have now been able to get it; will call 02/02 reports feeling better; no manic symptoms, sleeping better. Patient expresses hope that he is going to be able to return to his regular self and that this event will not happen again. Patient asked why telegraphic typewriter repairer thought he decompensated and both discussed patient's history of keeping his feelings and experiences private and however time they can build up and become problematic. Discussed hypertension and patient agreed to start lisinopril, reviewed risks/side effects. Patient says he is eager for therapy post discharge. Agrees to continue tapering down Ativan. -says GERD less problematic with famotidine 02/03 Continue tx Working formulation: Patient developed catatonia which was able to resolve with Ativan; will continue Ativan 1 mg t.i.d. for now, and taper slowly to make sure catatonia does not return At this time it seems less likely that patient has bipolar disorder and rather his symptoms are due to impulsivity and utilize as a coping strategy; he agrees to restart Prozac. That said, bipolar disorder remains a differential and still need to rule it out. Will discuss history with his mother to see if that can be more revealing. For now, patient certainly needs to remain on the unit to make sure catatonia does not return and that Prozac does not trigger him into ruby. Plan: CV Q 15 minute checks Continue Prozac 10 mg daily for depression/anxiety (at this time, it seems less likely that patient's symptoms are due to bipolar disorder; however will monitor closely to make sure he has not triggered into ruby) Discontinue Depakote Taper off Ativan Continue clonidine 0.1 mg Q 4 p.r.n. for anxiety Continue omeprazole 20 mg daily Continue famotidine 20 mg b.i.d. to help with GERD; Patient reports years of Unrelenting GERD; has only tried [id number] Prilosec and has never gone to see a GI specialist; knows about possible H pylori infection and says he will discuss with his PCP. Reason for continued inpatient stay Substantial Risk for: rapid decompensation Time Spent With Patient Time: Total time managing care of this patient today ____ minutes.
[2024-02-04 18:58] VITALS: BP 165/124
[2024-02-04] MEDS: cloNIDine HCL 0.1 MG TABLET PO (18:58)
[2024-02-04 20:00] VITALS: BP 168/125; PULSE 108; RESP 18; TEMP 36.4; O2SAT 95
[2024-02-04] MEDS: traZODone HCL 50 MG TABLET PO (21:10)
[2024-02-04] MEDS: hydrOXYzine HCL 25 MG TABLET PO (21:11)
[2024-02-05 07:51] VITALS: BP 162/84; PULSE 97; RESP 16; TEMP 36.8; O2SAT 98
[2024-02-05] MEDS: FLUoxetine HCl 10 MG CAPSULE PO (08:23)
[2024-02-05] MEDS: LORazepam 0.5 MG TABLET PO ×3 (08:24→20:37)
[2024-02-05] MEDS: Famotidine 20 MG TABLET PO ×2 (08:24→20:37)
[2024-02-05] MEDS: Omeprazole 20 MG CAPSULE.DR PO (08:24)
[2024-02-05] MEDS: lisinopriL 5 MG TABLET PO (08:25)
--- NOTE | 2024-02-05 10:58 | P.PNPSI_ITS ---
Subjective Subjective Date of Service: 02/05/24 Reason For Visit: depression/ SI Subjective Notes: Conditional Voluntary Healthcare Proxy: No Guardianship: No Medical Problems Affecting Mental Status: No Interim History: Looking forward to discharge. Visable and interactive in the milieu. BP continues elevated. Hospitalist consult appreciated. Amlodipine initiated. Pt aware he will need to follow up with PCP Medication Compliance: Yes Side effects from medications: No Attending Groups: Yes Review of Systems Acute medical concerns: No Medical Review of Systems: changed Review of Systems: HTN. Seen by hospitalist Amlodipine intiated. Mental Status Exam Mental Status Exam Patient Appearance: Appropriate Patient Orientation: Person, Place, Time and Situation Level of Consciousness: Alert Patient Behavior: Appropriate, Talkative and Good Eye Contact Mood Description: Anxious Affect Description: Anxious Patient Cognition Impaired: No Ability to Follow Directions: Good Speech Pattern: Spontaneous Speech Memory Description: Intact Judgement: Fair Diagnostics Vital Signs (24Hr): Vital Signs - 24 hr 02/04/24 18:58 02/04/24 20:00 02/05/24 07:51 Temperature 97.6 F 98.2 F Pulse Rate 108 H 97 Respiratory Rate 18 16 Blood Pressure 165/124 H 168/125 H 162/84 H Pulse Oximetry 95 98 Oxygen Delivery Method Room Air Room Air BMI result Body Mass Index 39.1 Labs 01/25/24 16:03 01/30/24 07:30 Medications Medications Current Medications Acetaminophen (Acetaminophen 325 Mg Tablet) 650 mg PO Q6H PRN PRN Reason: Headache/Pain Mild Scale (1-3) Last Admin: 02/02/24 22:56 Dose: 650 mg Al Hydroxide/Mg Hydroxide (Magnesium Hydrox/Alum Hydrox 30 Ml Oral.Susp) 30 ml PO Q6H PRN PRN Reason: Heartburn/Nausea Benzocaine (Throat Lozenge, Medicated Lozenge) 1 lozenge MUCOUS MEM Q2H PRN PRN Reason: Sore Throat Last Admin: 02/03/24 08:55 Dose: 1 lozenge Clonidine HCl (Clonidine Hcl 0.1 Mg Tablet) 0.1 mg PO Q4H PRN; Protocol PRN Reason: moderate anxiety Last Admin: 02/04/24 18:58 Dose: 0.1 mg Famotidine (Famotidine 20 Mg Tablet) 20 mg PO BID BRIAN Last Admin: 02/05/24 08:24 Dose: 20 mg Fluoxetine HCl (Fluoxetine Hcl 10 Mg Capsule) 10 mg PO DAILY [facility] Last Admin: 02/05/24 08:23 Dose: 10 mg Hydroxyzine HCl (Hydroxyzine Hcl 25 Mg Tablet) 25 mg PO Q6H PRN PRN Reason: Anxiety Last Admin: 02/04/24 21:11 Dose: 25 mg Lidocaine (Lidocaine 4 % Patch Adh..Patch) 1 patch TRANSDERMA DAILY PRN; Protocol PRN Reason: lower back pain Last Admin: 02/03/24 08:55 Dose: 1 patch Lisinopril (Lisinopril 5 Mg Tablet) 5 mg PO DAILY [facility]; Protocol Last Admin: 02/05/24 08:25 Dose: 5 mg Lorazepam (Lorazepam 0.5 Mg Tablet) 0.5 mg PO TID [facility] Last Admin: 02/05/24 08:24 Dose: 0.5 mg Magnesium Hydroxide (Milk Of Magnesia 30 Ml Oral.Susp) 30 ml PO DAILY PRN PRN Reason: Constipation Last Admin: 01/30/24 08:56 Dose: 30 ml Nicotine (Nicotine 21 Mg Patch.Td24) 21 mg TRANSDERMA DAILY PRN PRN Reason: smoking cessation Nicotine Polacrilex (Nicotine Polacrilex 2 Mg Gum) 4 mg BUCCAL Q2H PRN PRN Reason: Nicotine Cravings Omeprazole (Omeprazole 20 Mg Capsule.Dr) 20 mg PO DAILY@0900 [facility] Last Admin: 02/05/24 08:24 Dose: 20 mg Trazodone HCl (Trazodone Hcl 50 Mg Tablet) 50 mg PO BEDTIME MRX1 PRN PRN Reason: Insomnia Last Admin: 02/04/24 21:10 Dose: 50 mg Allergies Allergies Allergy/AdvReac Type Severity Reaction Status Date / Time No Known Allergies Allergy Verified 01/25/24 15:14 Assessment & Plan Assessment & Plan (1) MDD (major depressive disorder), recurrent severe, without psychosis: Status: Acute Code(s): F33.2 - Major depressive disorder, recurrent severe without psychotic features (2) Anxiety: Status: Acute Code(s): F41.9 - Anxiety disorder, unspecified (3) Catatonia: Status: Acute Code(s): F06.1 - Catatonic disorder due to known physiological condition Assessment and Plan: Resolving with Ativan (4) Hx of gastroesophageal reflux (GERD): Status: Acute Code(s): Z87.19 - Personal history of other diseases of the digestive system Plan HPI: Patient is a 38-year-old male, 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 Patient is somewhat of a limited historian, giving only one-word answers to most questions, which are sometimes only indirectly relevant. Patient has no history of psychiatric care. He shared that his anxiety and depression started around 24 years old after a failed engagement. Patient said that he has had some level of depression for the past 15 years which seems to always get worse in the winter and again in the spring, lasting for few months and during which time (and currently) he stays in bed most of the day, does not attend to ADLs, has no interest in things, increased guilty feelings, low energy, poor concentration, low appetite and excessive sleep. In addition to his mother's illness and his springtime depression, patient said he made some bad financial decisions recently. He was vague and it's not totally clear what happened but he apparently went on the Internet and took a pay day, internet...algaaciq loan for total of $3200 at an exorbitant interest rate which he tried to pay back but somehow thinks he scammed and needs a computer engineering technician. This recent incident worsened his depression and for the 1st time had suicidal thoughts and hopelessness. During interview, bid writer gently inquired regarding patient's tendency to give one-word answers. With that question, patient stopped talking completely... After sometime bid writer asked what patient was thinking but he remained reticent. After some more time bid writer proposed asking just yes or no questions to which patient agreed. He said yes to a series of questions which included that he is aware he stopped talking, knows why he stopped that it is because he is unsure if he is ready to disclose certain things he is thinking about. Patient denies AVH; denies any history of ruby or manic episodes; denies any history of overt trauma; denies any history of drug or alcohol abuse; denies any prior history of SI or SA. Tried to assess for OCD but patient unable to discuss. He is ready to start trying medications. 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 Patient has a long history of untreated anxiety and depression, never discussing any of his symptoms with anyone. He is ready to start treatment now and agrees to Prozac, clonidine after reviewing risks/side effects. Patient has both Depression and anxiety ASD? OCD? Bipolar? Hospital course: On admission, patient was depressed and anxious, talking and moving very little; during initial interview he suddenly stopped talking. He was started on Prozac for depression/anxiety (and risks/side effects reviewed) as well as clonidine; also started famotidine for refractory GERD. However, Over the weekend patient became catatonic. -differential dx catatonia vs psychosis; ativan 2mg TID PO and ativan 2mg IM prn if not taking PO for treatmetn of catatonia prozac discontinued I & O monitoring chemistry profile 01/29 differential dx OCD, ASD, Bipolar DO begin taper of ativan to limit disinhibition start Depakote ER 250 mg at bedtime pt has completely different presentation today; walking in hallway with sun glasses on; he is talkative with staff and peers; pt asks to talk to me and sits crossed legged on exam table in treatment room. He says i think i have a bipolar disorder...I think I have a compulsive disorder.. States he had been very depressed upon admission and afraid to talk. he tells me he has a shopping addiction. he buys too many things;says no relationship for 14 years so when he wants to feel happy he goes shopping at [employer]. he says he spent his money and his mother's money; he likes [employer], video games, and movies. he once went shopping and came home with 15 bags of groceries. He says he buys scratch tickets but not as compulsively. He says his house is full of things like a hoarder. he says his mother likes collectibles and she collects tiny witches all over the house. pt states his sisters, grandmother and 2 nieces are all agoraphobic. he say his father got delusional and was hospitalized for months in 2003 after a mental breakdown. Pt states he thinks what he has might be genetic. He denies drug or alcohol use; he says he does spend money on online pornography but not excessive not like the shopping for things he does. he prefers to go to the store and buy thins when he is lonely. He reports frequent panic attacks; when asked about periods of elation he states approximately a month ago he felt like that; he tells me he was a terrible student- they put him in sped classes because he liked wood working more than academics. He has some interpersonal problems at work due to he and boss like the same woman. He says his boss badgers him for information about her. He says he often takes criticism personally and then gets obsessed about the opinion of someone else. He denies SI or HI. He denies A/V H 01/30 On admission patient stopped talking and over the weekend it became apparent he had become catatonic, not moving his position at all for hours and hours, not speaking, not eating, not drinking. Provider Engagement Executive discussed case in detail with covering provider who administered Ativan. Patient was started on Ativan 2 mg t.i.d. (1st dose patient just held in his mouth until it dissolve however Ativan was successful in helping catatonia quickly resolve and patient started moving, talking more; he continued to improve as Ativan was continued. Provider Engagement Executive discussed this with patient and he said he was aware that he had stopped talking and not moving; he said he was scared and felt like I was just locked up... He said nothing like that has ever happened before. Patient with mildly pressured speech when talking. Discussed psychiatric history in more detail and patient endorses history of mood lability, having crying spells that come out of no where and periodic struggles where he will spend excessive amounts of money and run into debt, which happened just prior to this admission. He also discussed in more detail his depressive episodes which could be severe but that he would still be able to push himself to go to work. Patient also wondered if he had autism, saying that there were people at work who were autistic and he found some similarities in how they interactive with others; patient shared that he often struggles to get jokes or sarcasm and has trouble reading interpersonal cues. Patient also does describes things in concrete terms making it difficult to discern if patient has actual manic episodes or if mood lability and spending sprees are due to an etiology other than bipolar ruby; he does say that his spending sprees coincide with loneliness. Patient shared that his father had history of excessive spending, compulsively spending money and at 1 point had a psychological break.. And when patient was a teenager, his father rapidly spent his 's inheritance of $100,000 dollars leaving them homeless. However, bid writer can not conclude whether or not his father's behavior was due to a bipolar disorder. -assessed for OCD and patient does not seem to meet criteria. -discussed diagnosis and medication regimen. He agrees to move back to Prozac which was discontinued over the weekend. -Patient gave permission to discussed case with his mother. 01/31 Remains anxious but less so and says he starting to feel better and that depression is less. Catatonia symptoms have not returned; patient understands that continued Ativan is likely helping reduce anxiety and that this will be tapered. Patient reports sleeping well enough and though intermittently has mildly pressured speech, no other manic symptoms apparent at this time. Patient reports tolerating Prozac without problems. Heartburn as a little less with famotidine added. -some trouble procuring mother's phone number but have now been able to get it; will call 02/02 reports feeling better; no manic symptoms, sleeping better. Patient expresses hope that he is going to be able to return to his regular self and that this event will not happen again. Patient asked why bid writer thought he decompensated and both discussed patient's history of keeping his feelings and experiences private and however time they can build up and become problematic. Discussed hypertension and patient agreed to start lisinopril, reviewed risks/side effects. Patient says he is eager for therapy post discharge. Agrees to continue tapering down Ativan. -says GERD less problematic with famotidine 02/03 Continue tx 02/04 Amlodipine 5 mg daily initiated by hospitalist for HTN. Working formulation: Patient developed catatonia which was able to resolve with Ativan; will continue Ativan 1 mg t.i.d. for now, and taper slowly to make sure catatonia does not return At this time it seems less likely that patient has bipolar disorder and rather his symptoms are due to impulsivity and utilize as a coping strategy; he agrees to restart Prozac. That said, bipolar disorder remains a differential and still need to rule it out. Will discuss history with his mother to see if that can be more revealing. For now, patient certainly needs to remain on the unit to make sure catatonia does not return and that Prozac does not trigger him into ruby. Plan: CV Q 15 minute checks Continue Prozac 10 mg daily for depression/anxiety (at this time, it seems less likely that patient's symptoms are due to bipolar disorder; however will monitor closely to make sure he has not triggered into ruby) Discontinue Depakote Taper off Ativan Continue clonidine 0.1 mg Q 4 p.r.n. for anxiety Continue omeprazole 20 mg daily Continue famotidine 20 mg b.i.d. to help with GERD; Patient reports years of Unrelenting GERD; has only tried oagw-ars-cclovos Prilosec and has never gone to see a GI specialist; knows about possible H pylori infection and says he will discuss with his PCP. Reason for continued inpatient stay Substantial Risk for: med/psych decompensation Time Spent With Patient Time: Total time managing care of this patient today ____ minutes.
[2024-02-05] MEDS: cloNIDine HCL 0.1 MG TABLET PO (11:54)
[2024-02-05 11:57] VITALS: BP 160/86; PULSE 114
--- NOTE | 2024-02-05 15:41 | PC.NURSE ---
Jabari was up and out of bed at the beginning of this shift. His blood pressure has been elevated throughout the day (see chart) and the provider has put in a consult for a hospitalist to assess him. Jabari ate 80-100% of both meals and attended 1 group on this shift. He continues to present with a blunted affect but his mood appears a bit brighter. He denies that he is having suicidal thoughts at this time. He has spent about half of the shift thus far in common areas but more recently headed to his room to lie down. He said that it was scary for him being around some of the other patients when they act out (this is his first time inpatient for psychiatry) and chooses to stay away when i happens. Jabari said he is anxious to get back home. We thought together about ways he can provide self-care so he is better able to manage taking care of his mother who is sick with stage IV breast CA which has metastasized to her bones. He said he is also considering applying for PF so he can be more available for his mother, as well as for himself. We also discussed the importance/ value in maintaining a routine with structured things to do to avoid falling into withdrawal/ isolation. As of 3:35pm, the hospitalist has notcome to the unit to assess Jabari's BP.
[2024-02-05 15:57] VITALS: BP 154/91; PULSE 102
--- NOTE | 2024-02-05 18:15 | PM.EVENT ---
Event Note Date of Service: 02/05/24 Event Note: Medical consult management of hypertension. Patient's BP has been consistently elevated during admission, as high as 182 systolic and 125 diastolic. Will start patient on amlodipine 5 mg p.o. daily. Will continue to follow to monitor BP and titrate from there. Time Spent With Patient Time: Total time managing care of this patient today ____ minutes.
[2024-02-05 19:59] VITALS: BP 169/115; PULSE 114; RESP 18; TEMP 36.9; O2SAT 98
[2024-02-05 20:37] VITALS: BP 169/115
[2024-02-05] MEDS: traZODone HCL 50 MG TABLET PO (20:37)
[2024-02-05] MEDS: amLODIPine Besylate 5 MG TABLET PO (20:37)
[2024-02-06 08:00] VITALS: BP 132/94; PULSE 110; RESP 18; TEMP 36.3; O2SAT 94
[2024-02-06 08:14] VITALS: BP 132/94
[2024-02-06] MEDS: lisinopriL 5 MG TABLET PO ×2 (08:14→10:00)
[2024-02-06 08:15] VITALS: BP 132/94
[2024-02-06] MEDS: amLODIPine Besylate 5 MG TABLET PO (08:15)
[2024-02-06] MEDS: Omeprazole 20 MG CAPSULE.DR PO (08:15)
[2024-02-06] MEDS: LORazepam 0.5 MG TABLET PO (08:15)
[2024-02-06] MEDS: FLUoxetine HCl 10 MG CAPSULE PO (08:15)
[2024-02-06] MEDS: Famotidine 20 MG TABLET PO (08:15)
--- NOTE | 2024-02-06 09:26 | P.DS_ITS ---
DS: Providers Provider Date of Service: 02/06/24 Date of admission: 01/26/24 11:12 Date of discharge: 02/06/24 Primary care physician: Kenneth Car MD Attending physician on admission: Robert Rashid Consults: 02/05/24 12:33 Consult to Hospitalist Routine Comment: Consulting Provider: Hospitalist Reason For Exam: Hypertension Attending physician on discharge: Robert Rashid DS: Diagnosis Discharge Diagnosis (1) MDD (major depressive disorder), recurrent severe, without psychosis: Status: Acute (2) Anxiety: Status: Acute (3) Catatonia: Status: Resolved (4) Hx of gastroesophageal reflux (GERD): Status: Acute DS: Medications Discharge Medications Home Medications: Previous Rx's ?Medication ?Instructions ?Recorded clonidine HCl 0.1 mg tablet 0.1 mg PO Q4H PRN moderate anxiety 02/06/24 30 days #90 tabs famotidine 20 mg tablet 20 mg PO BID 30 days #60 tabs 02/06/24 fluoxetine 10 mg capsule 10 mg PO DAILY 30 days #30 caps 02/06/24 hydroxyzine HCl 25 mg tablet 25 mg PO Q6H PRN Anxiety 30 days 02/06/24 #60 tabs lisinopril 10 mg tablet 10 mg PO DAILY 30 days #30 tabs 02/06/24 omeprazole 20 mg capsule,delayed 20 mg PO DAILY@0900 30 days #30 02/06/24 release caps trazodone 50 mg tablet 50 mg PO BEDTIME MRX1 PRN Insomnia 02/06/24 30 days #30 tabs Mental Status Exam Mental Status Exam Narrative: Pt is alert and oriented; behavior is cooperative, friendly and calm; patient is not in distress; dressed in hospital attire, wearing sunglasses; adequate hygiene; mood is described as good and affect congruent, more expressive; eye contact appropriate; Speech is mildly pressured but normal rate and prosody; no psychomotor agitation/retardation present; thought process is goal directed concrete but overall logical/linear; Thought content is on tx, diagnosis; otherwise pertinent to relevant topics and without any delusional content, paranoid ideations or grandiosity; denies any SI/HI. There is no evidence of perceptual disturbance and denies AVH. Patients insight and judgment much improved and fair Data Data Completed and Pending Completed studies during hospitalization [Text1]: 02/01/24 02/02/24 Unknown 14:10 Influenza Type A (PCR) NEGATIVE Influenza Type B (PCR) NEGATIVE RSV RNA Qual (PCR) NEGATIVE SARS-CoV-2 RNA (RT-PCR) NEGATIVE S. 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 Patient is somewhat of a limited historian, giving only one-word answers to most questions, which are sometimes only indirectly relevant. Patient has no history of psychiatric care. He shared that his anxiety and depression started around 24 years old after a failed engagement. Patient said that he has had some level of depression for the past 15 years which seems to always get worse in the winter and again in the spring, lasting for few months and during which time (and currently) he stays in bed most of the day, does not attend to ADLs, has no interest in things, increased guilty feelings, low energy, poor concentration, low appetite and excessive sleep. In addition to his mother's illness and his springtime depression, patient said he made some bad financial decisions recently. He was vague and it's not totally clear what happened but he apparently went on the Internet and took a pay day, internet...[employer] loan for total of $3200 at an exorbitant interest rate which he tried to pay back but somehow thinks he scammed and needs a longitudinal float operator. This recent incident worsened his depression and for the 1st time had suicidal thoughts and hopelessness. During interview, life insurance underwriter gently inquired regarding patient's tendency to give one-word answers. With that question, patient stopped talking completely... After sometime life insurance underwriter asked what patient was thinking but he remained reticent. After some more time life insurance underwriter proposed asking just yes or no questions to which patient agreed. He said yes to a series of questions which included that he is aware he stopped talking, knows why he stopped that it is because he is unsure if he is ready to disclose certain things he is thinking about. Patient denies AVH; denies any history of ruby or manic episodes; denies any history of overt trauma; denies any history of drug or alcohol abuse; denies any prior history of SI or SA. Tried to assess for OCD but patient unable to discuss. He is ready to start trying medications. 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 Patient has a long history of untreated anxiety and depression, never discussing any of his symptoms with anyone. He is ready to start treatment now and agrees to Prozac, clonidine after reviewing risks/side effects. Patient has both Depression and anxiety ASD? OCD? Bipolar? Hospital course: On admission, patient was depressed and anxious, talking and moving very little; during initial interview he suddenly stopped talking. He was started on Prozac for depression/anxiety (and risks/side effects reviewed) as well as clonidine; also started famotidine for refractory GERD. on 01/28 However, patient became catatonic: not moving his position at all for hours and hours, not speaking, not eating, not drinking. pt presenting constricted affect, mute, makes brief eye contact, did not eat breakfast or lunch, sitting on bed in same position for hours; he did move legs around while with this life insurance underwriter sitting with legs crossed on bed then putting one foot on floor; he nodded one time when I asked if he understood what I was saying about needing to take the ativan 2 mg PO. He did not take the ativan PO despite nurs ing trying to give to him over 20 minutes; he took one sip of water, stated to nurse you should test them first. Pt appear paranoid and fearful. He stares blankly for long periods; discussed with Dr Gay herrera dx of catatonia. Trial of ativan 2 mg TID PO and ativan 2mg IM PRN if pt does not take ativan 2mg for treatmetn of catatonia - Patient was started on Ativan 2 mg t.i.d. (1st dose patient just held in his mouth until it dissolve however Ativan was successful in helping catatonia quickly resolve and patient started moving, talking more; he continued to improve as Ativan was continued. 01/29 with Ativan, catatonia resolved and covering provider reported pt has completely different presentation today; walking in hallway with sun glasses on; he is talkative with staff and peers; pt asks to talk to me and sits crossed legged on exam table in treatment room. He says i think i have a bipolar disorder...I think I have a compulsive disorder.. States he had been very depressed upon admission and afraid to talk. he tells me he has a shopping addiction. he buys too many things;says no relationship for 14 years so when he wants to feel happy he goes shopping at [employer]. he says he spent his money and his mother's money; he likes collectibles, video games, and movies. he once went shopping and came home with 15 bags of groceries. He says he buys scratch tickets but not as compulsively. He says his house is full of things like a hoarder. he says his mother likes collectibles and she collects tiny witches all over the house. pt states his sisters, grandmother and 2 nieces are all agoraphobic. he say his father got delusional and was hospitalized for months in 2003 after a mental breakdown. Pt states he thinks what he has might be genetic. He denies drug or alcohol use; he says he does spend money on online pornography but not excessive not like the shopping for things he does. he prefers to go to the store and buy thins when he is lonely. He reports frequent panic attacks; when asked about periods of elation he states approximately a month ago he felt like that; he tells me he was a terrible student- they put him in sped classes because he liked wood working more than academics. He has some interpersonal problems at work due to he and boss like the same woman. He says his boss badgers him for information about her. He says he often takes criticism personally and then gets obsessed about the opinion of someone else. He denies SI or HI. He denies A/V H 01/30 life insurance underwriter discussed recent catatonic episode with patient. He said he was aware that he had stopped talking and not moving; he said he was scared and felt like I was just locked up... He said nothing like that has ever happened before. Patient with mildly pressured speech when talking. Discussed psychiatric history in more detail and patient endorses history of mood lability, having crying spells that come out of no where and periodic struggles where he will spend excessive amounts of money and run into debt, which happened just prior to this admission. He also discussed in more detail his depressive episodes which could be severe but that he would still be able to push himself to go to work. Patient also wondered if he had autism, saying that there were people at work who were autistic and he found some similarities in how they interactive with others; patient shared that he often struggles to get jokes or sarcasm and has trouble reading interpersonal cues. Patient also does describes things in concrete terms making it difficult to discern if patient has actual manic episodes or if mood lability and spending sprees are due to an etiology other than bipolar ruby; he does say that his spending sprees coincide with loneliness. Patient shared that his father had history of excessive spending, compulsively spending money and at 1 point had a psychological break.. And when patient was a teenager, his father rapidly spent his 's inheritance of $100,000 dollars leaving them homeless. However, life insurance underwriter can not conclude whether or not his father's behavior was due to a bipolar disorder. -assessed for OCD and patient does not seem to meet criteria. -discussed diagnosis and medication regimen. He agrees to move back to Prozac which was discontinued over the weekend. -Patient gave permission to discussed case with his mother. 01/31 Remains anxious but less so and says he starting to feel better and that depression is less. Catatonia symptoms have not returned; patient understands that continued Ativan is likely helping reduce anxiety and that this will be t apered. Patient reports sleeping well enough and though intermittently has mildly pressured speech, no other manic symptoms apparent at this time. Patient reports tolerating Prozac without problems. Heartburn as a little less with famotidine added. -some trouble procuring mother's phone number but have now been able to get it; will call 02/02 reports feeling better; no manic symptoms, sleeping better. Patient expresses hope that he is going to be able to return to his regular self and that this event will not happen again. Patient asked why life insurance underwriter thought he decompensated and both discussed patient's history of keeping his feelings and experiences private and however time they can build up and become problematic. Discussed hypertension and patient agreed to start lisinopril, reviewed risks/side effects. Patient says he is eager for therapy post discharge. Agrees to continue tapering down Ativan. -says GERD less problematic with famotidine; Amlodipine 5 mg daily initiated by hospitalist for HTN however this was discontinued and patient remained on lisinopril only. Patient remained in good behavioral and impulse control, appropriate peers and staff; he was eating and sleeping well and felt back to his regular self. He continued to report improved mood with depression resolved; anxiety also under much better control. Patient felt ready to return home, back to his regular self and eager to eventually get back to work. Patient expressed gratitude for help received. Patient was not in imminent risk for harm to self or others; he was appropriate to return to the community for treatment and request for discharge honored Time spent discussing smoking cessation with patient: 3 to 10 minutes Status at Discharge Functional status at discharge: independent ambulation Overall status at discharge: patient is back to baseline Time Spent with Patient Time attestation: Total time managing care of this patient today ____ minutes. Time spent: Less than 30 minutes Discharge Plan Discharge Anticipated Discharge Date/Time: 02/06/24 11:30 Patient Disposition: Home, Self-Care Discharge Diagnosis: MDD, recurrent, severe with catatonic features, in full remission Referrals: [facility] Intake w Bela Grant [Other] - 02/09/24 2:00 pm [facility] Psyche Evaluation with Aarti Price [Other] - 03/07/24 1:20 pm (Telehealth) [facility] Medication Management w Aarti Price [Other] - 04/05/24 9:00 am (Telehealth) [facility] [Provider Group] Kenneth Car MD [Primary Care Provider] - 02/17/24 1:30 pm (in office) Discharge Medications: New clonidine HCl 0.1 mg Tablet 0.1 mg PO Q4H PRN (Reason: moderate anxiety) 30 Days Qty: 90 1RF Protocol: Hold for SBP< HOLD for SBP < : 90 fluoxetine 10 mg Capsule 10 mg PO DAILY 30 Days Qty: 30 1RF hydroxyzine HCl 25 mg Tablet 25 mg PO Q6H PRN (Reason: Anxiety) 30 Days Qty: 60 1RF trazodone 50 mg Tablet 50 mg PO BEDTIME MRX1 PRN (Reason: Insomnia) 30 Days Qty: 30 1RF famotidine 20 mg Tablet 20 mg PO BID 30 Days Qty: 60 1RF omeprazole 20 mg Capsule,Delayed Release(Dr/Ec) 20 mg PO DAILY@0900 30 Days Qty: 30 1RF lisinopril 10 mg tablet 10 mg PO DAILY 30 Days Qty: 30 0RF Discharge Orders: Discharge Order (Routine); Ordered 02/06/24 Ordered By: Robert Rashid Diet: Regular diet Activity on Discharge: As tolerated Stand Alone Forms: Patient Portal Discharge page, Community Support Print Language: Citizen [place] Care Plan Goals: Maintain mood and safe behaviors Take medications as prescribed Practice coping skills Continue with outpatient providers and reach out to them as needed Health Concerns: Mood stability and behaviors GERD Hypertension Plan of Treatment: Follow up with your PCP, psychiatric provider and other outpatient providers regarding above concerns Take medications as prescribed Assessment: Risk assessment at time of discharge:? Patient was interviewed prior to discharge and found to be fully oriented and without any SI or HI. Patient has improved insight and judgment and wants to continue treatment. Patient is not in imminent risk of harm to self or others and has a safety plan that includes presenting to the closest ER or calling 911 if feeling unsafe.? Patient has been observed closely by nursing and unit staff throughout admission; patient has not engaged in any behaviors that suggest dangerousness to self or others and has demonstrated appropriate behaviors and impulse control Discharge Date/Time: 02/06/24 11:30
== END 2024-02-06 11:30 | disposition home or self-care (01) | DRG 751 ==
LOC: HO.ED 18:42 → HO.PM5 01-26 11:24
PROVIDERS: Clinical Nurse Specialist Psychiatric/Mental Health; Physician Assistant; Admitting Provider Psychiatry & Neurology Psychiatry; Emergency Provider Emergency Medicine; PCP Internal Medicine; Visit Provider Psychiatry & Neurology Psychiatry
DX: F33.2 Major depressive disorder, recurrent severe without psychotic features (principal); F06.1 Catatonic disorder due to known physiological condition; R45.851 Suicidal ideations; F41.9 Anxiety disorder, unspecified; Z20.822 Contact with and (suspected) exposure to COVID-19; Z87.891 Personal history of nicotine dependence; Z79.899 Other long term (current) drug therapy
CPT/HCPCS: 0241U; 36415; 80053; 80061; 80143; 80179; 80307; 83036; 83690; 84484; 85025; 85610; 87651; 93005; 99285; S9485

== ENCOUNTER → 2024-01-25 15:12 | Outpatient (BNV) | payer OTHER, SELFPAY | PROVIDERS: Admitting Provider Psychiatry & Neurology Psychiatry; Emergency Provider Emergency Medicine; PCP Internal Medicine; Visit Provider Internal Medicine Cardiovascular Disease | DX: R45.851 Suicidal ideations (principal) | CPT/HCPCS: 93010 ==

== ENCOUNTER → 2024-01-26 11:12 | Outpatient (BNV) | payer OTHER, SELFPAY | PROVIDERS: Admitting Provider Psychiatry & Neurology Psychiatry; Emergency Provider Emergency Medicine; PCP Internal Medicine; Visit Provider Psychiatry & Neurology Psychiatry | DX: F33.2 Major depressive disorder, recurrent severe without psychotic features (principal); F41.9 Anxiety disorder, unspecified; F06.1 Catatonic disorder due to known physiological condition; Z87.19 Personal history of other diseases of the digestive system | CPT/HCPCS: 90792; 99231; 99232; 99233; 99238 ==

== ENCOUNTER 2024-03-16 17:53 | Emergency (ER) | payer OTHER, SELFPAY ==
--- NOTE | ~2024-03-16 | CT_ITS ---
EXAMINATION: CT CERVICAL SPINE WITHOUT CONTRAST CLINICAL INFORMATION: Syncope. COMPARISON: None available. TECHNIQUE: Noncontrast CT of the cervical spine was performed. This CT examination was performed using dose optimization techniques as appropriate, variously including the following: *Automated exposure control *Adjustment of mA and/or kV according to patient size (this includes techniques or standardized protocols for targeted exams where dose is matched to indication/reason for exam; i.e. extremities or head) *Use of iterative reconstruction technique DLP: 1484 mGy-cm FINDINGS: The vertebral bodies and posterior elements demonstrate anatomic alignment in the sagittal projection. The vertebral bodies demonstrate preserved stature. Intervertebral disc space heights are preserved. The prevertebral soft tissue is normal in appearance. The C1-C2 relationship is anatomic. The dens is intact. There is no acute cervical spine fracture. The lung apices are clear. Thyroid gland is normal in appearance. CT/CT cervical spine wo IV con IMPRESSION: No acute osseous cervical spine abnormality. Fleischner guidelines were followed.
--- NOTE | ~2024-03-16 | CT_ITS ---
EXAMINATION: CT HEAD WITHOUT CONTRAST CLINICAL INFORMATION: Seizure. COMPARISON: None available. TECHNIQUE: Contiguous axial imaging was performed from the skull base to vertex without intravenous administration of contrast. This CT examination was performed using dose optimization techniques as appropriate, variously including the following: *Automated exposure control *Adjustment of mA and/or kV according to patient size (this includes techniques or standardized protocols for targeted exams where dose is matched to indication/reason for exam; i.e. extremities or head) *Use of iterative reconstruction technique DLP: 1484 mGy-cm FINDINGS: There is no acute intracranial hemorrhage. There is no evidence of acute/subacute cerebral or cerebellar infarction. There is no midline shift or mass effect. No extra-axial fluid collection. The ventricles are normal in size. The orbits are symmetric and within normal limits. The calvarium is intact. Mastoid air cells are clear. There is mild right frontal and right anterior ethmoid air cell mucosal disease. There is mild mucosal disease within the sphenoid sinuses. CT/CT head/brain wo IV con IMPRESSION: No acute intracranial pathology.
--- NOTE | ~2024-03-16 | CT_ITS ---
EXAMINATION: CT ANGIOGRAM OF THE CHEST WITH AND WITHOUT CONTRAST (CT PULMONARY ANGIOGRAM FOR PE) CLINICAL INFORMATION: Reason for Exam concern for PE COMPARISON: None available. TECHNIQUE: Prior to contrast administration, noncontrast localization images were obtained. Subsequently, multidetector volumetric imaging was performed from the thoracic inlet to below the diaphragms following the administration of 65 mL Omnipaque 350 intravenous contrast. No contrast reaction reported Sagittal, coronal, and MIP oblique sagittal reformatted images were obtained on the CT workstation, uploaded to PACS, and reviewed. This CT examination was performed using dose optimization techniques as appropriate, variously including the following: *Automated exposure control *Adjustment of mA and/or kV according to patient size (this includes techniques or standardized protocols for targeted exams where dose is matched to indication/reason for exam; i.e. extremities or head) *Use of iterative reconstruction technique Total exam dose-length product 563 mGy-cm FINDINGS: QUALITY OF STUDY/CONTRAST BOLUS: Satisfactory. PULMONARY ARTERIES: There is a saddle embolus crossing the midline extending into the right and left main pulmonary arteries. Extension to the segmental and subsegmental branches of both lungs. THORACIC AORTA: No aneurysm. LUNG: Focal consolidation in the right upper lobe extending from the lung periphery. Smaller patchy airspace opacities in the right lower lobe. Left lung is normally aerated. PLEURA: No pleural effusion or pneumothorax. MEDIASTINUM: Normal heart size. No pericardial effusion. No hilar or mediastinal lymphadenopathy. No evidence of septal bowing or right heart strain. CORONARY ARTERY CALCIFICATION: None visualized on this study. CHEST WALL/AXILLA: No axillary or internal mammary lymphadenopathy. OSSEOUS STRUCTURES: No acute or suspicious osseous abnormality. UPPER ABDOMEN: Unremarkable. No reflux of contrast into the hepatic veins to suggest elevated right heart pressures. CT/CT angio chest PE protocol IMPRESSION: 1. Saddle embolus extending into the right and left main pulmonary arteries and into the segmental and subsegmental branches of both lungs. 2. Focal consolidation in the right upper lobe and smaller patchy airspace opacities in the right lower lobe. VTE: positive. This critical result was discussed with Dr Franz on 03/16/2024, 10:44 PM and it was ascertained that the content and urgency of the report was understood at the time of direct communication.
--- NOTE | ~2024-03-16 | XR_ITS ---
EXAMINATION: XR CHEST CLINICAL INFORMATION: Hypoxic. COMPARISON: None available. TECHNIQUE: Frontal view of the chest was obtained. FINDINGS: The cardiac silhouette is normal in size. There is a right lower lobe airspace opacity for which infection is not excluded. There is no large pleural effusion. No pneumothorax. No acute osseous abnormality. XR/XR chest 1V IMPRESSION: Right lower lobe airspace disease for which pneumonia is not excluded.
[2024-03-16 18:02] VITALS: BP 115/74; PULSE 113; RESP 20; TEMP 37.4; O2SAT 93; BMI 37.0
--- NOTE | 2024-03-16 18:02 | ECG_ITS ---
Test Reason : SEIZURE Blood Pressure : / mmHG Vent. Rate : 114 BPM Atrial Rate : 114 BPM P-R Int : 134 ms QRS Dur : 098 ms QT Int : 338 ms P-R-T Axes : 031 035 203 degrees QTc Int : 465 ms Sinus tachycardia Cannot rule out Inferior infarct , age undetermined ST & T wave abnormality, consider lateral ischemia Abnormal ECG When compared with ECG of 25-JAN-2024 15:47, Minimal criteria for Inferior infarct are now Present Non-specific change in ST segment in Inferior leads ST now depressed in Lateral leads T wave inversion now evident in Inferior leads T wave inversion now evident in Lateral leads Referred By: Wilton Franz Electronically Signed By:Adam Castro
[2024-03-16 18:11] LABS: MANUAL DIFF FLAG NO
[2024-03-16 18:14] LABS: VBG Base Excess -3.4 mmol/L; VBG HCO3 21 mmol/L (22-26); VBG pCO2 39 mmHg; VBG pH 7.34 (7.32-7.43); VBG pO2 31 mmHg
[2024-03-16 18:14] LABS: Glucose, Whole Blood 167 mg/dL (60-115)
[2024-03-16 18:17] LABS: Basophils Absolute Auto 0.1 X10*3/uL (0.0-0.2); Eosinophils Percent Auto 0.3 % (0-4); Hematocrit 44.2 % (42.0-52.0); Hemoglobin 15.9 g/dl (14.0-18.0); Imm Gran Abs Auto 0.05 X10*3/uL (0.00-0.03); Imm Gran Pct Auto 0.6 % (0.0-0.4); Lymphocytes Absolute Auto 1.9 X10*3/uL (1.2-4.9); Lymphocytes Percent Auto 21.6 % (20-40); Mean Corpuscular Hemoglobin 30.5 pg (27.0-33.0); Mean Corpuscular Volume 84.8 fL (80.0-98.0); Mean Platelet Volume 9.7 fL (9.4-12.4); Monocytes Absolute Auto 0.5 X10*3/uL (0.1-1.2); Monocytes Percent Auto 5.6 % (2-11); Neutrophils Absolute Auto 6.3 x10*3/uL (2.0-8.3); Neutrophils Percent Auto 70.9 % (45-73); Platelet Count 223 X10*3/uL (160-400); Red Blood Count 5.21 X10*6/uL (4.60-5.80); Red Cell Distribution Width 13.8 % (11.0-16.0); Venous Blood Gas Refer to POC result; White Blood Count 8.9 X10*3/uL (4.8-10.8)
[2024-03-16] MEDS: 0.9 % Sodium Chloride 1,000 ML 999 ML IV (18:18)
--- NOTE | 2024-03-16 18:27 | PC.NURSE ---
Addendum entered by Dorothea Ramirez 03/16/24 18:37: states that he has not been eating or drinking over the past few days, went to stand up and passed out. endorses shortness of breath. Original Note: patient placed on oxymask at this time, 93% on 10L. when asked where patient thought that he was he stated [place] . states that I don't know what happened, I just passed out . bilateral IV, labs obtained and sent. fluids infusing at this time. at [facility] for hallucinations. following commands properly at this time.
[2024-03-16 18:30] LABS: Anion Gap 19 (12-20); Blood Urea Nitrogen 15 mg/dL (9-16); Calcium 9.5 mg/dL (8.4-10.2); Carbon Dioxide 22 mmol/L (22-29); Chloride 106 mmol/L (96-108); Creatinine Clr Calc Pharmacy 106.1; Estimated Glomerular Filt Rate 57; Glucose Random 171 mg/dL (60-115); Magnesium 1.8 mg/dL (1.6-2.6); Potassium 3.6 mmol/L (3.3-5.1); Sodium 143 mmol/L (135-145)
[2024-03-16 18:38] VITALS: BP 114/61; PULSE 111; RESP 24; O2SAT 92
[2024-03-16 18:47] LABS: Troponin-I High Sensitivity 169.7 ng/L (<3.5-35.0)
--- NOTE | 2024-03-16 18:47 | ECG_ITS ---
Test Reason : ELEVATED TROP Blood Pressure : / mmHG Vent. Rate : 108 BPM Atrial Rate : 108 BPM P-R Int : 138 ms QRS Dur : 094 ms QT Int : 302 ms P-R-T Axes : 024 037 213 degrees QTc Int : [address] & T wave abnormality, consider inferior ischemia ST & T wave abnormality, consider anterolateral ischemia Abnormal ECG When compared with ECG of 16-MAR-2024 18:04, Inverted T waves have replaced nonspecific T wave abnormality in Anterior leads Referred By: Wilton Franz Electronically Signed By:Adam Castro
[2024-03-16 18:50] LABS: Ethanol < 10 mg/dL
[2024-03-16] MEDS: Aspirin Enteric Coated 325 MG TABLET.DR PO (19:04)
[2024-03-16 19:35] LABS: D Dimer High Sensitivity 3349 NG/ML
[2024-03-16 19:50] LABS: B Type Natriuretic Peptide 20 pg/mL (<100)
[2024-03-16 20:03] VITALS: BP 117/61; PULSE 82; RESP 24; TEMP 36.6; O2SAT 87
[2024-03-16 20:09] LABS: Reflex Lactate? Lactic Acid Added
[2024-03-16 20:36] LABS: Troponin-I High Sensitivity 262.8 ng/L (<3.5-35.0)
--- NOTE | 2024-03-16 20:48 | ECG_ITS ---
Test Reason : REPEAT Blood Pressure : / mmHG Vent. Rate : 092 BPM Atrial Rate : 092 BPM P-R Int : 162 ms QRS Dur : 096 ms QT Int : 348 ms P-R-T Axes : 016 043 001 degrees QTc Int : 430 ms Normal sinus rhythm Nonspecific T wave abnormality Abnormal ECG When compared with ECG of 16-MAR-2024 19:09, ST no longer depressed in Anterolateral leads T wave inversion no longer evident in Lateral leads Referred By: Wilton Franz Electronically Signed By:Adam Castro
[2024-03-16] MEDS: iohexoL 350 MG/ML 100 ML INFUS..BTL 65 ML IV (20:50)
[2024-03-16] MEDS: Doxycycline Monohydrate 100 MG CAPSULE PO (20:55)
[2024-03-16] MEDS: cefTRIAXone sodium 1 GM in 0.9 % Sodium Chloride 50 ML IV (20:55)
[2024-03-16 21:00] VITALS: BP 114/75; PULSE 83; RESP 22; O2SAT 95
[2024-03-16 21:03] VITALS: BMI 37.4
[2024-03-16 21:09] LABS: Hematocrit 40.4 % (42.0-52.0); Hemoglobin 14.7 g/dl (14.0-18.0); Mean Corpuscular HGB Conc 36.4 g/dl (31.0-36.0); Mean Corpuscular Hemoglobin 30.7 pg (27.0-33.0); Mean Corpuscular Volume 84.3 fL (80.0-98.0); Mean Platelet Volume 9.4 fL (9.4-12.4); Platelet Count 149 X10*3/uL (160-400); Red Blood Count 4.79 X10*6/uL (4.60-5.80); Red Cell Distribution Width 13.6 % (11.0-16.0); White Blood Count 7.9 X10*3/uL (4.8-10.8)
[2024-03-16 21:14] LABS: INTERNATIONAL NORM RATIO 1.3 (0.9-1.1); Prothrombin Time 15.7 SEC (11.1-13.3)
[2024-03-16 21:17] LABS: PTT Heparin Drip 29.3 SEC (53-77.9); Partial Thromboplastin Time 29.5 SEC (26.0-36.8)
[2024-03-16 21:21] LABS: ~Lactic Acid-LAB USE ONLY 2.8 mmol/L (0.5-2.0)
[2024-03-16] MEDS: Heparin Sodium,Porcine/1/2NS 25,000 UNIT/250 ML IV.SOLN 19.03 UNIT IVCONT (21:42)
[2024-03-16 22:00] VITALS: BP 115/79; PULSE 90; RESP 16; TEMP 37.9; O2SAT 94
--- NOTE | 2024-03-16 22:03 | ED.GENADULT ---
HPI - General Adult General Chief complaint: Seizure Stated complaint: syncopal ep. ?seizure, hypoxic 82% Time Seen by Provider: 03/16/24 18:02 Source: patient and EMS Mode of arrival: EMS History of Present Illness ED Provider: kingsley HPI narrative: 38-year-old male with past medical history of anxiety, depression presenting for syncope. Patient suffered a syncopal episode while sitting in his chair. Bystanders noted rhythmic movements concerning for seizure. EMS arrived patient was hypoxic to low 80s and was bagged on the way to the ED. patient arrived to the ED still hypoxic to low 80s on room air. Patient states he had only been experiencing cough and mild shortness of breath throughout the day and denies chest pain, diaphoresis. He states he feels tired and mildly short of breath now however still denies chest pain. He denies drug use, alcohol use. Related Data Previous Rx's ?Medication ?Instructions ?Recorded clonidine HCl 0.1 mg tablet 0.1 mg PO Q4H PRN moderate anxiety 02/06/24 30 days #90 tabs famotidine 20 mg tablet 20 mg PO BID 30 days #60 tabs 02/06/24 fluoxetine 10 mg capsule 10 mg PO DAILY 30 days #30 caps 02/06/24 hydroxyzine HCl 25 mg tablet 25 mg PO Q6H PRN Anxiety 30 days 02/06/24 #60 tabs lisinopril 10 mg tablet 10 mg PO DAILY 30 days #30 tabs 02/06/24 omeprazole 20 mg capsule,delayed 20 mg PO DAILY@0900 30 days #30 02/06/24 release caps trazodone 50 mg tablet 50 mg PO BEDTIME MRX1 PRN Insomnia 02/06/24 30 days #30 tabs Allergies Allergy/AdvReac Type Severity Reaction Status Date / Time No Known Allergies Allergy Verified 03/16/24 18:16 Review of Systems Review of Systems: Patient denies head pain, neck pain, chest pain, nausea, vomiting, abdominal pain, chills, fever Patient endorses shortness of breath and nonproductive cough Yes all other systems are reviewed and are negative [facility] Past Medical History Attestation statement: The following information was validated with the patient. [facility] Narrative: Anxiety, depression Source: old records reviewed Medical History (Updated 03/16/24 @ 23:48 by Wilton Franz MD) Anxiety MDD (major depressive disorder), recurrent severe, without psychosis Morbid obesity Degenerative disc disease at L5-S1 level Social History Social History Household Members: Family Household Members Other:: him and his elderly mother Housing: Apartment Do you presently have visiting nurse or other home services: No Comment: [facility] zepeda Patient Tobacco Use Status: Former Tobacco user Tobacco use type: Cigarette Cigarettes Per Day: 10 e-Cigarette/Vaping Use: Never Used Second Hand Smoke Exposure: No Advance Directives: No Advance Directives Information Provided: No Do you have a plan to hurt others: No Plan service: No Sexual orientation: Unable to collect Physical Exam ED Vital Signs: Vital Signs - 24 hr 03/16/24 18:02 03/16/24 18:38 03/16/24 20:03 Temperature 99.3 F 97.9 F Pulse Rate 113 H 111 H 82 Respiratory Rate 20 24 H 24 H Blood Pressure 115/74 114/61 117/61 Pulse Oximetry 93 92 87 L Oxygen Delivery Method Oxymask Oxymask Oxymask Oxygen Flow Rate 10 15 03/16/24 21:00 03/16/24 22:00 Temperature 100.2 F Pulse Rate 83 90 Respiratory Rate 22 H 16 Blood Pressure 114/75 115/79 Pulse Oximetry 95 94 Oxygen Delivery Method Oxymask Oxymask Oxygen Flow Rate 15 15 BMI result Body Mass Index 37.4 Medications Administered Generic Name Dose Route Start Last Admin Trade Name Freq PRN Reason Stop Dose Admin Heparin Sodium/Sodium Chloride 25,000 unit in 250 mls @ 0 mls/hr 03/16/24 21:15 03/16/24 21:42 Heparin Sodium,Porcine/1/2ns IVCONT 14 units/kg/hr .Q0M BRIAN 19.03 mls/hr Administration Protocol Per Protocol Discontinued Medications Generic Name Dose Route Start Last Admin Trade Name Freq PRN Reason Stop Dose Admin Aspirin 325 mg 03/16/24 18:47 03/16/24 19:04 Aspirin Enteric Coated 325 Mg Tablet.Dr PO 03/16/24 18:48 325 mg ONCE ONE Administration Doxycycline Monohydrate 100 mg 03/16/24 20:35 03/16/24 20:55 Doxycycline Monohydrate 100 Mg Capsule PO 03/16/24 20:36 100 mg BID ONE Administration Sodium Chloride 1,000 mls @ 999 mls/hr 03/16/24 18:15 03/16/24 19:46 Ns IV 03/16/24 19:15 Infused .Q1H1M BRIAN Infusion Ceftriaxone Sodium 1 gm/ 50 mls @ 100 mls/hr 03/16/24 20:35 03/16/24 21:55 Sodium Chloride IV 03/16/24 21:04 Infused ONCE ONE Infusion Iohexol 65 ml 03/16/24 20:50 03/16/24 20:50 Iohexol 350 Mg/Ml 100 Ml Infus..Btl IV 03/16/24 20:51 65 ml ONCE ONE Administration Medical Decision Making Medical Decision Making MDM Narrative: I have concerns for the following; PE, ACS, pneumonia, viral URI Labs and imaging studies ordered Chest x-ray showing right lung infiltrate; antibiotics ordered for cap coverage Initial trope 169 and 2nd troponin greater than 200; heparin ordered and cardiology was consulted Dr. Castro agreed with heparin drip and did not recommend Plavix, Brilinta, or tnk/tpa however he thought patient should be transferred to [facility] in case he deteriorated were required intervention I spoke with on-call chair post machine operator, Dr Alejandre, at [facility] who did not think patient was having ACS and did not feel that patient required emergent transfer. He declined transfer to cardiology and recommended transfer to hospitalist tele floor which traveling secretary, Ana, who placed request 22:16 I spoke with [facility] hospitalist who accepted transfer however they do not currently have any beds and will call for patient when a bed becomes available Radiology called reported saddle PE without right heart strain 23:48 patient has a bed at [facility] Differential Diagnosis Differential Diagnoses: The differential diagnosis associated with the presentation includes PE, ACS, pneumonia, viral Lab Data MDM Lab Attestation statement: I reviewed the patient's lab results. 03/16/24 21:01 03/16/24 18:05 Labs: Lab Results 03/16/24 03/16/24 03/16/24 Range/Units 17:59 18:05 18:06 WBC 8.9 (4.8-10.8) X10*3/uL RBC 5.21 (4.60-5.80) X10*6/uL Hgb 15.9 (14.0-18.0) g/dl Hct 44.2 (42.0-52.0) % MCV 84.8 (80.0-98.0) fL MCH 30.5 (27.0-33.0) pg MCHC 36.0 (31.0-36.0) g/dl RDW 13.8 (11.0-16.0) % Plt Count 223 (160-400) X10*3/uL MPV 9.7 (9.4-12.4) fL Immature Gran % (Auto) 0.6 H (0.0-0.4) % Neut % (Auto) 70.9 (45-73) % Lymph % (Auto) 21.6 (20-40) % Sheridan % (Auto) 5.6 (2-11) % Eos % (Auto) 0.3 (0-4) % Baso % (Auto) 1.0 (0-2) % Lymph # (Auto) 1.9 (1.2-4.9) X10*3/uL Sheridan # (Auto) 0.5 (0.1-1.2) X10*3/uL Eos # (Auto) 0.0 (0.0-0.4) X10*3/uL Baso # (Auto) 0.1 (0.0-0.2) X10*3/uL Abs Immat Gran (auto) 0.05 H (0.00-0.03) X10*3/uL Absolute Neuts (auto) 6.3 (2.0-8.3) x10*3/uL Absolute Nucleated RBC 0.000 (0.0-0.012) X10*3/uL Nucleated RBC % (auto) 0.0 (0.0-0.2) /100WBC PT (11.1-13.3) SEC INR (0.9-1.1) APTT (26.0-36.8) SEC aPTT Heparin Protocol (53-77.9) SEC D-Dimer High Sensitivty NG/ML VBG pH 7.34 (7.32-7.43) VBG pCO2 39 mmHg VBG pO2 31 mmHg VBG HCO3 21 L (22-26) mmol/L VBG O2 Saturation 48.0 % VBG Base Excess -3.4 mmol/L Sodium 143 (135-145) mmol/L Potassium 3.6 (3.3-5.1) mmol/L Chloride 106 (96-108) mmol/L Carbon Dioxide 22 (22-29) mmol/L Anion Gap 19 (12-20) BUN 15 (9-16) mg/dL Creatinine 1.38 (0.5-1.4) mg/dL Estim Creat Clear Calc 106.1 Estimated GFR 57 POC Glucose 167 H (60-115) mg/dL Random Glucose 171 H (60-115) mg/dL Lactic Acid 3.0 H* (0.5-2.0) mmol/L Lactic Acid F/U @ 2Hr (0.5-2.0) mmol/L Lactic Acid F/U @ 4Hr (0.5-2.0) mmol/L Calcium 9.5 (8.4-10.2) mg/dL Magnesium 1.8 (1.6-2.6) mg/dL Troponin I High Sens 169.7 H* D (<3.5-35.0) ng/L B-Natriuretic Peptide (<100) pg/mL Ethyl Alcohol < 10 mg/dL COVID-19 (ISI) (Negative) COVID-19 Clin Com 03/16/24 03/16/24 03/16/24 Range/Units 19:18 20:02 21:01 WBC 7.9 (4.8-10.8) X10*3/uL RBC 4.79 (4.60-5.80) X10*6/uL Hgb 14.7 (14.0-18.0) g/dl Hct 40.4 L (42.0-52.0) % MCV 84.3 (80.0-98.0) fL MCH 30.7 (27.0-33.0) pg MCHC 36.4 H (31.0-36.0) g/dl RDW 13.6 (11.0-16.0) % Plt Count 149 L D (160-400) X10*3/uL MPV 9.4 (9.4-12.4) fL Immature Gran % (Auto) (0.0-0.4) % Neut % (Auto) (45-73) % Lymph % (Auto) (20-40) % Sheridan % (Auto) (2-11) % Eos % (Auto) (0-4) % Baso % (Auto) (0-2) % Lymph # (Auto) (1.2-4.9) X10*3/uL Sheridan # (Auto) (0.1-1.2) X10*3/uL Eos # (Auto) (0.0-0.4) X10*3/uL Baso # (Auto) (0.0-0.2) X10*3/uL Abs Immat Gran (auto) (0.00-0.03) X10*3/uL Absolute Neuts (auto) (2.0-8.3) x10*3/uL Absolute Nucleated RBC 0.000 (0.0-0.012) X10*3/uL Nucleated RBC % (auto) 0.0 (0.0-0.2) /100WBC PT 15.7 H (11.1-13.3) SEC INR (0.9-1.1) APTT (26.0-36.8) SEC aPTT Heparin Protocol (53-77.9) SEC D-Dimer High Sensitivty 3349 NG/ML VBG pH (7.32-7.43) VBG pCO2 mmHg VBG pO2 mmHg VBG HCO3 (22-26) mmol/L VBG O2 Saturation % VBG Base Excess mmol/L Sodium (135-145) mmol/L Potassium (3.3-5.1) mmol/L Chloride (96-108) mmol/L Carbon Dioxide (22-29) mmol/L Anion Gap (12-20) BUN (9-16) mg/dL Creatinine (0.5-1.4) mg/dL Estim Creat Clear Calc Estimated GFR POC Glucose (60-115) mg/dL Random Glucose (60-115) mg/dL Lactic Acid (0.5-2.0) mmol/L Lactic Acid F/U @ 2Hr (0.5-2.0) mmol/L Lactic Acid F/U @ 4Hr (0.5-2.0) mmol/L Calcium (8.4-10.2) mg/dL Magnesium (1.6-2.6) mg/dL Troponin I High Sens 262.8 H* D (<3.5-35.0) ng/L B-Natriuretic Peptide 20 (<100) pg/mL Ethyl Alcohol mg/dL COVID-19 (ISI) (Negative) COVID-19 Clin Com 03/16/24 03/16/24 03/16/24 Range/Units 21:01 21:01 21:47 WBC (4.8-10.8) X10*3/uL RBC (4.60-5.80) X10*6/uL Hgb (14.0-18.0) g/dl Hct (42.0-52.0) % MCV (80.0-98.0) fL MCH (27.0-33.0) pg MCHC (31.0-36.0) g/dl RDW (11.0-16.0) % Plt Count (160-400) X10*3/uL MPV (9.4-12.4) fL Immature Gran % (Auto) (0.0-0.4) % Neut % (Auto) (45-73) % Lymph % (Auto) (20-40) % Sheridan % (Auto) (2-11) % Eos % (Auto) (0-4) % Baso % (Auto) (0-2) % Lymph # (Auto) (1.2-4.9) X10*3/uL Sheridan # (Auto) (0.1-1.2) X10*3/uL Eos # (Auto) (0.0-0.4) X10*3/uL Baso # (Auto) (0.0-0.2) X10*3/uL Abs Immat Gran (auto) (0.00-0.03) X10*3/uL Absolute Neuts (auto) (2.0-8.3) x10*3/uL Absolute Nucleated RBC (0.0-0.012) X10*3/uL Nucleated RBC % (auto) (0.0-0.2) /100WBC PT 16.0 H (11.1-13.3) SEC INR 1.3 H 1.3 H (0.9-1.1) APTT 29.5 (26.0-36.8) SEC aPTT Heparin Protocol 29.3 L (53-77.9) SEC D-Dimer High Sensitivty NG/ML VBG pH (7.32-7.43) VBG pCO2 mmHg VBG pO2 mmHg VBG HCO3 (22-26) mmol/L VBG O2 Saturation % VBG Base Excess mmol/L Sodium (135-145) mmol/L Potassium (3.3-5.1) mmol/L Chloride (96-108) mmol/L Carbon Dioxide (22-29) mmol/L Anion Gap (12-20) BUN (9-16) mg/dL Creatinine (0.5-1.4) mg/dL Estim Creat Clear Calc Estimated GFR POC Glucose (60-115) mg/dL Random Glucose (60-115) mg/dL Lactic Acid (0.5-2.0) mmol/L Lactic Acid F/U @ 2Hr 2.8 H* (0.5-2.0) mmol/L Lactic Acid F/U @ 4Hr (0.5-2.0) mmol/L Calcium (8.4-10.2) mg/dL Magnesium (1.6-2.6) mg/dL Troponin I High Sens 332.8 H* (<3.5-35.0) ng/L B-Natriuretic Peptide (<100) pg/mL Ethyl Alcohol mg/dL COVID-19 (ISI) (Negative) COVID-19 Clin Com 03/16/24 03/16/24 03/16/24 Range/Units 22:32 22:59 23:10 WBC (4.8-10.8) X10*3/uL RBC (4.60-5.80) X10*6/uL Hgb (14.0-18.0) g/dl Hct (42.0-52.0) % MCV (80.0-98.0) fL MCH (27.0-33.0) pg MCHC (31.0-36.0) g/dl RDW (11.0-16.0) % Plt Count (160-400) X10*3/uL MPV (9.4-12.4) fL Immature Gran % (Auto) (0.0-0.4) % Neut % (Auto) (45-73) % Lymph % (Auto) (20-40) % Sheridan % (Auto) (2-11) % Eos % (Auto) (0-4) % Baso % (Auto) (0-2) % Lymph # (Auto) (1.2-4.9) X10*3/uL Sheridan # (Auto) (0.1-1.2) X10*3/uL Eos # (Auto) (0.0-0.4) X10*3/uL Baso # (Auto) (0.0-0.2) X10*3/uL Abs Immat Gran (auto) (0.00-0.03) X10*3/uL Absolute Neuts (auto) (2.0-8.3) x10*3/uL Absolute Nucleated RBC (0.0-0.012) X10*3/uL Nucleated RBC % (auto) (0.0-0.2) /100WBC PT (11.1-13.3) SEC INR (0.9-1.1) APTT (26.0-36.8) SEC aPTT Heparin Protocol (53-77.9) SEC D-Dimer High Sensitivty NG/ML VBG pH 7.44 H (7.32-7.43) VBG pCO2 32 mmHg VBG pO2 54 mmHg VBG HCO3 22 (22-26) mmol/L VBG O2 Saturation 84.0 % VBG Base Excess -0.9 mmol/L Sodium (135-145) mmol/L Potassium (3.3-5.1) mmol/L Chloride (96-108) mmol/L Carbon Dioxide (22-29) mmol/L Anion Gap (12-20) BUN (9-16) mg/dL Creatinine (0.5-1.4) mg/dL Estim Creat Clear Calc Estimated GFR POC Glucose (60-115) mg/dL Random Glucose (60-115) mg/dL Lactic Acid (0.5-2.0) mmol/L Lactic Acid F/U @ 2Hr (0.5-2.0) mmol/L Lactic Acid F/U @ 4Hr 1.2 (0.5-2.0) mmol/L Calcium (8.4-10.2) mg/dL Magnesium (1.6-2.6) mg/dL Troponin I High Sens (<3.5-35.0) ng/L B-Natriuretic Peptide (<100) pg/mL Ethyl Alcohol mg/dL COVID-19 (ISI) Negative (Negative) COVID-19 Clin Com See Note ABG Data Attestation ABG: I personally reviewed and interpreted this ABG as follows: Interpretation: Normal ph Independent Interpretation I performed an independent interpretation of an: EKG, Plain X-Ray and CT Scan Discharge Plan Discharge Clinical Impression: Pulmonary emboli, Elevated troponin, Shortness of breath, Syncope Patient Disposition: [facility] Transfer Details: Patient transferred to [facility] Prescriptions: No Action clonidine HCl 0.1 mg Tablet 0.1 mg PO Q4H PRN (Reason: moderate anxiety) 30 Days Qty: 90 1RF Protocol: Hold for SBP< HOLD for SBP < : 90 fluoxetine 10 mg Capsule 10 mg PO DAILY 30 Days Qty: 30 1RF hydroxyzine HCl 25 mg Tablet 25 mg PO Q6H PRN (Reason: Anxiety) 30 Days Qty: 60 1RF trazodone 50 mg Tablet 50 mg PO BEDTIME MRX1 PRN (Reason: Insomnia) 30 Days Qty: 30 1RF famotidine 20 mg Tablet 20 mg PO BID 30 Days Qty: 60 1RF omeprazole 20 mg Capsule,Delayed Release(Dr/Ec) 20 mg PO DAILY@0900 30 Days Qty: 30 1RF lisinopril 10 mg tablet 10 mg PO DAILY 30 Days Qty: 30 0RF Print Language: Cymro
[2024-03-16 22:25] LABS: Troponin-I High Sensitivity 332.8 ng/L (<3.5-35.0)
[2024-03-16 22:50] LABS: COVID-19 Test Negative (Negative); IDNOW Serial# 6674DD1D
[2024-03-16 23:04] LABS: Reflex Lactate? 2 Y
[2024-03-16 23:06] LABS: VBG Base Excess -0.9 mmol/L; VBG HCO3 22 mmol/L (22-26); VBG pCO2 32 mmHg; VBG pH 7.44 (7.32-7.43); VBG pO2 54 mmHg
[2024-03-16 23:06] LABS: Venous Blood Gas Refer to POC result
[2024-03-16 23:29] LABS: ~Lactic Acid-LAB USE ONLY 1.2 mmol/L (0.5-2.0)
--- NOTE | 2024-03-17 00:14 | PC.NURSE ---
Nurse to Nurse report to [facility] given Dominga JONES
[2024-03-17 02:03] VITALS: BP 115/79; PULSE 90; RESP 16; TEMP 37.9; O2SAT 94
== END 2024-03-17 02:06 | disposition short-term general hospital (02) ==
PROVIDERS: Emergency Medicine Emergency Medical Services; Emergency Provider Student in an Organized Health Care Education/Training Program
DX: I26.99 Other pulmonary embolism without acute cor pulmonale (principal); R79.89 Other specified abnormal findings of blood chemistry; R55 Syncope and collapse; R06.02 Shortness of breath; R09.02 Hypoxemia; R05.9 Cough, unspecified; Z87.891 Personal history of nicotine dependence; Z11.52 Encounter for screening for COVID-19; Z79.899 Other long term (current) drug therapy
CPT/HCPCS: 36415; 70450; 71045; 71275; 72125; 80048; 80307; 82803; 82947; 83605; 83735; 83880; 84484; 85025; 85027; 85379; 85610; 85730; 87635; 93005; 96361; 96365; 96375; 99285; J0696; J1644; Q9967

== ENCOUNTER → 2024-03-16 18:02 | Outpatient (BNV) | payer OTHER, SELFPAY | PROVIDERS: Emergency Provider Student in an Organized Health Care Education/Training Program; Visit Provider Internal Medicine Cardiovascular Disease | DX: R94.31 Abnormal electrocardiogram [ECG] [EKG] (principal) | CPT/HCPCS: 93010 ==

== ENCOUNTER 2024-04-14 08:44 | Outpatient (REF) | payer OTHER, SELFPAY ==
[2024-04-14 11:01] LABS: MANUAL DIFF FLAG NO
[2024-04-14 11:06] LABS: Basophils Absolute Auto 0.1 X10*3/uL (0.0-0.2); Basophils Percent Auto 1.2 % (0-2); Eosinophils Absolute Auto 0.1 X10*3/uL (0.0-0.4); Eosinophils Percent Auto 1.2 % (0-4); Hematocrit 45.9 % (42.0-52.0); Hemoglobin 16.1 g/dl (14.0-18.0); Imm Gran Abs Auto 0.03 X10*3/uL (0.00-0.03); Imm Gran Pct Auto 0.4 % (0.0-0.4); Lymphocytes Absolute Auto 2.2 X10*3/uL (1.2-4.9); Lymphocytes Percent Auto 29.8 % (20-40); Mean Corpuscular HGB Conc 35.1 g/dl (31.0-36.0); Mean Corpuscular Hemoglobin 30.1 pg (27.0-33.0); Mean Corpuscular Volume 85.8 fL (80.0-98.0); Mean Platelet Volume 9.5 fL (9.4-12.4); Monocytes Absolute Auto 0.6 X10*3/uL (0.1-1.2); Monocytes Percent Auto 7.7 % (2-11); Neutrophils Absolute Auto 4.4 x10*3/uL (2.0-8.3); Neutrophils Percent Auto 59.7 % (45-73); Platelet Count 265 X10*3/uL (160-400); Red Blood Count 5.35 X10*6/uL (4.60-5.80); Red Cell Distribution Width 13.2 % (11.0-16.0); White Blood Count 7.4 X10*3/uL (4.8-10.8)
[2024-04-14 11:32] LABS: Alanine Aminotransferase 32 U/L (0-40); Albumin Level 4.5 g/dL (3.5-5.0); Alkaline Phosphatase 88 U/L (39-117); Anion Gap 13 (12-20); Aspartate Amino Transferase 17 U/L (5-37); Bilirubin Total 0.7 mg/dL (0.0-1.0); Blood Urea Nitrogen 16 mg/dL (9-16); Calcium 9.9 mg/dL (8.4-10.2); Carbon Dioxide 23 mmol/L (22-29); Chloride 107 mmol/L (96-108); Cholesterol 215 mg/dL (<200); Estimated Glomerular Filt Rate > 60; Glucose Fasting 125 mg/dL (60-99); HDL Cholesterol 45 mg/dL (>40); LDL Cholesterol Calculated 141 mg/dL (<100); Potassium 3.9 mmol/L (3.3-5.1); Sodium 139 mmol/L (135-145); Total Protein 7.9 g/dL (6.5-8.0); Triglycerides 148 mg/dL (<150)
[2024-04-14 11:35] LABS: Thyroid Stimulating Hormone 0.91 uIU/mL (0.32-4.0)
[2024-04-14 12:18] LABS: Vitamin B12 560 pg/mL (200-900)
== END 2024-04-14 08:45 | disposition home or self-care (01) ==
LOC: HO.HMGCLDS 08:44
PROVIDERS: PCP Internal Medicine; Visit Provider Internal Medicine
DX: E78.00 Pure hypercholesterolemia, unspecified (principal); I26.99 Other pulmonary embolism without acute cor pulmonale
CPT/HCPCS: 36415; 80053; 80061; 82607; 84443; 85025

== ENCOUNTER 2024-07-29 15:30 | Inpatient (IN) | payer OTHER, SELFPAY ==
--- NOTE | ~2024-07-29 | CT_ITS ---
EXAMINATION: CT ANGIOGRAM CHEST CLINICAL INFORMATION: Near syncopal episode. Concern for PE. COMPARISON: CTA chest dated March 16, 2024. TECHNIQUE: Multiple axial images were obtained through the chest after the administration of 50 mL of Omnipaque 350 intravenous contrast. Extensive vascular post-processing including two-dimensional and three-dimensional reformatted images were created and reviewed on an independent workstation. This CT examination was performed using dose optimization techniques as appropriate, variously including the following: *Automated exposure control *Adjustment of mA and/or kV according to patient size (this includes techniques or standardized protocols for targeted exams where dose is matched to indication/reason for exam; i.e. extremities or head) *Use of iterative reconstruction technique DLP: 509 mGy-cm FINDINGS: QUALITY OF STUDY/CONTRAST BOLUS: Satisfactory. PULMONARY ARTERIES: There are no filling defects within the main pulmonary artery, right or left pulmonary arteries, or lobar pulmonary arteries to indicate an acute pulmonary embolism. Evaluation of the segmental and subsegmental arteries is somewhat limited secondary to mixing artifact. THORACIC AORTA: No aneurysm. LUNG: The trachea and central airways are widely patent. The lungs are clear. No consolidation. PLEURA: No pleural effusion or pneumothorax. MEDIASTINUM: Normal heart size. No pericardial effusion. No hilar or mediastinal lymphadenopathy. No evidence of septal bowing or right heart strain. CORONARY ARTERY CALCIFICATION: None visualized on this study. CHEST WALL/AXILLA: No axillary or internal mammary lymphadenopathy. OSSEOUS STRUCTURES: No acute or suspicious osseous abnormality. UPPER ABDOMEN: Unremarkable. No reflux of contrast into the hepatic veins to suggest elevated right heart pressures. CT/CT angio chest PE protocol IMPRESSION: There are no filling defects within the main pulmonary artery, right or left pulmonary arteries, or lobar pulmonary arteries to indicate an acute pulmonary embolism. Evaluation of the segmental and subsegmental arteries is somewhat limited secondary to mixing artifact. The lungs are clear. VTE: Negative. Fleischner guidelines were followed. Electronically signed by: Yoni Garcias DO 07/29/2024 06:44 PM EST
--- NOTE | ~2024-07-29 | XR_ITS ---
EXAMINATION: XR ABDOMEN KUB CLINICAL INDICATION: reports feelings of paralysis , ?constipation COMPARISON: None available. TECHNIQUE: AP view of the abdomen. FINDINGS: The bowel gas pattern is normal with no evidence of ileus or obstruction. No unusual soft tissue calcifications are noted. The bones are unremarkable. Moderate amount of stool throughout the colon. XR/XR KUB IMPRESSION: Moderate amount of stool throughout the colon. Electronically signed by: Gabriella Sandoval MD 08/10/2024 08:35 PM ALAN CAMERON
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
[2024-07-29 15:32] VITALS: BP 148/104; PULSE 99; RESP 18; TEMP 36.3; O2SAT 94; BMI 36.8
--- NOTE | 2024-07-29 15:35 | ECG_ITS ---
Test Reason : SYNCOPE Blood Pressure : / mmHG Vent. Rate : 105 BPM Atrial Rate : 105 BPM P-R Int : 158 ms QRS Dur : 084 ms QT Int : 308 ms P-R-T Axes : 017 -09 004 degrees QTc Int : 407 ms Sinus tachycardia Possible Anterior infarct , age undetermined Abnormal ECG When compared with ECG of 16-MAR-2024 21:03, Borderline criteria for Anterior infarct are now Present Referred By: Emerald Abbott Electronically Signed By:ANTONIO CONRAD
[2024-07-29 16:03] LABS: MANUAL DIFF FLAG NO
[2024-07-29 16:05] LABS: Basophils Absolute Auto 0.1 X10*3/uL (0.0-0.2); Basophils Percent Auto 0.9 % (0-2); Eosinophils Absolute Auto 0.1 X10*3/uL (0.0-0.4); Eosinophils Percent Auto 1.4 % (0-4); Hematocrit 41.9 % (42.0-52.0); Hemoglobin 15.1 g/dl (14.0-18.0); Imm Gran Abs Auto 0.01 X10*3/uL (0.00-0.03); Imm Gran Pct Auto 0.2 % (0.0-0.4); Mean Corpuscular Hemoglobin 29.8 pg (27.0-33.0); Mean Corpuscular Volume 82.6 fL (80.0-98.0); Mean Platelet Volume 8.8 fL (9.4-12.4); Monocytes Absolute Auto 0.7 X10*3/uL (0.1-1.2); Monocytes Percent Auto 10.3 % (2-11); Neutrophils Absolute Auto 3.8 x10*3/uL (2.0-8.3); Neutrophils Percent Auto 57.2 % (45-73); Platelet Count 216 X10*3/uL (160-400); Red Blood Count 5.07 X10*6/uL (4.60-5.80); Red Cell Distribution Width 12.5 % (11.0-16.0); White Blood Count 6.6 X10*3/uL (4.8-10.8)
[2024-07-29 16:21] LABS: Amphetamine Screen Urine Not Detected (Not Detect); Barbiturates, Urine Not Detected (Not Detect); Benzodiazepines Screen Urine Not Detected (Not Detect); Buprenorphine Scr Not Detected (Not Detect); Cannabinoid Screen Urine Not Detected (Not Detect); Cocaine Screen Urine Not Detected (Not Detect); Fentanyl, urine Not Detected (Not Detect); Methadone Screen, Urine Not Detected (Not Detect); Opiate Screen Urine Not Detected (Not Detect); Oxycodone Screen Urine Not Detected (Not Detect); Phencyclidine Screen Urine Not Detected (Not Detect)
[2024-07-29 16:22] LABS: Appearance Urine Clear; Color Urine Yellow; Glucose Urine UA Negative (Negative); Leukocyte Esterase Urine Negative (Negative); Nitrite Urine Negative (Negative); PH 5.5 (5.0-9.0); Specific Gravity - Urine 1.025 (1.005-1.025); Urine Blood Negative (Negative); Urine Ketones Negative (Negative); Urine Protein Negative (Neg-Trace)
[2024-07-29 16:24] LABS: Bacteria Urine None Seen (None Seen); Hyaline Casts Urine 0-2 /LPF (0-2); RBC Urine 0-2 /HPF (0-2); Squamous Epithelial Cell Urine 0-2 /HPF (0-2); WBC Urine 0-5 /HPF (0-5)
[2024-07-29 16:27] LABS: Acetaminophen LAB < 3 mcg/mL (<30); Salicylate < 5.0 mg/dL (15-30)
[2024-07-29 16:27] LABS: Alanine Aminotransferase 24 U/L (0-40); Alkaline Phosphatase 89 U/L (39-117); Anion Gap 11 (12-20); Aspartate Amino Transferase 18 U/L (5-37); Bilirubin Direct 0.1 mg/dL (0.0-0.5); Bilirubin Total 0.3 mg/dL (0.0-1.0); Blood Urea Nitrogen 15 mg/dL (9-16); Calcium 9.6 mg/dL (8.4-10.2); Carbon Dioxide 24 mmol/L (22-29); Chloride 110 mmol/L (96-108); Creatinine Clr Calc Pharmacy 179.1; Estimated Glomerular Filt Rate > 60; Ethanol < 10 mg/dL; Glucose Random 101 mg/dL (60-115); Magnesium 2.2 mg/dL (1.6-2.6); Potassium 3.6 mmol/L (3.3-5.1); Sodium 141 mmol/L (135-145); Total Protein 6.9 g/dL (6.5-8.0)
[2024-07-29 16:31] LABS: Troponin-I High Sensitivity < 2.7 ng/L (<3.5-35.0)
--- NOTE | 2024-07-29 16:32 | PC.NURSE ---
pt reports he has not taken any of his home meds for a couple of months.
[2024-07-29 17:41] VITALS: BP 144/97; PULSE 69
--- NOTE | 2024-07-29 17:42 | PC.NURSE ---
brought from pod to 6 for cta, has not taken eliquis in months. hx PE's, near syncope this morning. IV established, labs obtained and sent. awaiting ct scan
[2024-07-29 17:45] VITALS: BP 143/106; PULSE 86
[2024-07-29 17:48] VITALS: BP 151/112; PULSE 106
[2024-07-29 17:58] LABS: Prothrombin Time 11.4 SEC (10.9-12.4)
[2024-07-29 18:01] LABS: Partial Thromboplastin Time 31.7 SEC (26.0-36.8)
[2024-07-29 18:08] LABS: Troponin-I High Sensitivity < 2.7 ng/L (<3.5-35.0)
[2024-07-29] MEDS: iohexoL 350 MG/ML 100 ML INFUS..BTL IV (18:18)
[2024-07-29 19:11] VITALS: BP 134/91; PULSE 64; RESP 16; TEMP 36.5; O2SAT 96
[2024-07-29] MEDS: LORazepam 1 MG TABLET PO (23:06)
[2024-07-30] MEDS: diphenhydrAMINE HCL 25 MG CAPSULE 50 MG PO (04:07)
[2024-07-30 06:19] VITALS: RESP 16
--- NOTE | 2024-07-30 09:25 | MHC.CARE ---
Pt will be an inpatient adult bedsearch.
[2024-07-30] MEDS: Acetaminophen 325 MG TABLET 650 MG PO (09:37)
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
--- NOTE | 2024-07-30 10:14 | PC.NURSE ---
patient is awake and alert this morning, ate breakfast. patient wanders about unit, calm/cooperative/polite. patient states he had a headache, offered patient po tylenol for pain. patient medicated per NOV and reassessed and states he no longer has pain. patient resp even and unlabored, no signs of any acute distress.
[2024-07-30 11:04] VITALS: BP 144/105; PULSE 78; RESP 16; TEMP 36.8; O2SAT 97
[2024-07-30] MEDS: hydrOXYzine HCL 25 MG TABLET PO (12:11)
--- NOTE | 2024-07-30 12:13 | PC.NURSE ---
patient stated he felt dizzy, patient poc checked 128. patient stated it may be because he is anxious, patient medicated per MAR with prn for anxiety.
[2024-07-30 12:14] LABS: Glucose, Whole Blood 128 mg/dL (60-115)
[2024-07-30 12:56] VITALS: BMI 36.4
[2024-07-30 12:57] VITALS: BP 155/108; PULSE 73; TEMP 36.8; O2SAT 96
[2024-07-30] MEDS: Flu Vacc TS2024-25(6mos up)/PF 0.5 ML SYRINGE IM (15:41)
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
[2024-07-30 19:37] VITALS: BP 140/90; PULSE 93; RESP 18; TEMP 36.9; O2SAT 100
[2024-07-31 08:00] VITALS: BP 164/115; PULSE 106; RESP 18; TEMP 36.7; O2SAT 96
[2024-07-31 08:59] LABS: Estimated Average Glucose 108 mg/dL; Hemoglobin A1C 132.1375 umol/L; Hemoglobin A1c % 5.4 % (<6.0)
[2024-07-31 09:00] VITALS: BP 158/98
[2024-07-31] MEDS: hydrOXYzine HCL 25 MG TABLET PO (09:07)
[2024-07-31] MEDS: Milk of Magnesia 30 ML ORAL.SUSP PO (09:07)
[2024-07-31 09:27] LABS: Cholesterol 202 mg/dL (<200); HDL Cholesterol 43 mg/dL (>40); LDL Cholesterol Calculated 138 mg/dL (<100); Magnesium 2.2 mg/dL (1.6-2.6); Triglycerides 107 mg/dL (<150)
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
[2024-07-31 10:01] LABS: Free T4 (Free Thyroxine) 1.01 ng/dL (0.71-1.85); Thyroid Stimulating Hormone 1.21 uIU/mL (0.32-4.0)
[2024-07-31 10:12] LABS: Vitamin B12 410 pg/mL (200-900)
[2024-07-31] MEDS: risperiDONE 1 MG TABLET PO ×2 (17:56→21:11)
[2024-07-31 20:00] VITALS: BP 129/81; PULSE 94; TEMP 36.9; O2SAT 97
[2024-07-31] MEDS: Mirtazapine 7.5 MG TABLET PO (21:11)
[2024-08-01] VITALS (7 sets, daily range): BP systolic 131–218; BP diastolic 89–146; PULSE 95–137; RESP 16–18; TEMP 36.6–36.8; O2SAT 92–98
--- NOTE | 2024-08-01 09:40 | PC.NURSE ---
Pt c/o feeling faint. VS obtained and documented. Covering providers made aware. New order for hospitalist consult received due to hx PE. Covering hospitalist Dr. Sandhu notified of new consult order.
--- NOTE | 2024-08-01 12:52 | P.EN_ITS ---
Event Note Date of Service: 08/01/24 Event Note: Patient is a 38-year-old male with a PMH significant for hypertension, PE, and mood disorder who was admitted to Psychiatric unit. Hospitalist consult for presyncope. Patient complains of feeling ?off? and like he is going to ?pass out and ?. Also experiencing a number of other complaints, including chest tightness with inspiration, mostly nonproductive cough for the past few days, and some episodes of nausea and vomiting. Patient is a rather poor historian and unable to articulate any further. Denies lightheadedness or dizziness. Denies shortness or breath or difficulty breathing. No constipation. Patient has a significant PMH for saddle embolus diagnosed on 03/16/2024 here in the ED. patient [place] [facility] [place] Attempted to [place] [facility] [place] stay, but was unable to do so. Patient reports he stopped taking all of his home medications sometime during the summe including Eliquis and lisinopril r, though is uncertain exactly when that was. Unclear how long patient was supposed to be on Eliquis. Physical exam benign, though patient noted to be tachycardic. EKG reviewed which showed sinus tachycardia of 105 without evidence of significant ST elevations or depressions. Orthostatics taken and negative. Repeat CTA on 07/29/2024 negative for PE For presyncope, would suggest treating conservatively at this time. Orthostatics negative. Patient satting at 92-94% on RA. Will check COVID/ flu/RSV. For history of PE, CTA scan 3 days ago was negative for PE. No indication for additional imaging at this time. Patient is not hypoxic. The only question is whether patient should be on lifelong anticoagulation. Would suggest trying to get medical records from [facility] to to see length of Eliquis prescription. For HTN, will restart amlodipine 5mg daily, which he was one during prior admission. Time Spent With Patient Time: Total time managing care of this patient today ____ minutes.
[2024-08-01] MEDS: amLODIPine Besylate 5 MG TABLET PO (13:34)
[2024-08-01 14:25] LABS: Influenza A PCR NEGATIVE (Negative); Influenza B PCR NEGATIVE (Negative); Resp Syncy Virus RNA Qual PCR NEGATIVE (Negative); SARS COV2 PCR INHOUSE NEGATIVE (Negative)
--- NOTE | 2024-08-01 18:21 | HO.PSYCHPN ---
Subjective Subjective Date of Service: 08/01/24 Reason For Visit: depression, anxiety Subjective Notes: Conditional Voluntary Healthcare Proxy: No Guardianship: No Medical Problems Affecting Mental Status: No Interim History: Refusing Risperdal Reports feeling unwell, presyncope. Seen by hospitalist team and will observe. Sleeping this afternoon, declined to meet. Hx of catatonia which we will need to watch for. Medication Compliance: Intermittent Side effects from medications: No Attending Groups: No Review of Systems seen by hospitalist Medical Review of Systems: unchanged Review of Systems Review of Systems presyncope Mental Status Exam Mental Status Exam Patient Appearance: Fatigued Patient Orientation: Person, Place, Time and Situation Level of Consciousness: Alert Patient Behavior: Guarded and Cooperative Mood Description: Withdrawn and Depressed Affect Description: Flat Patient Cognition Impaired: No Ability to Follow Directions: Fair Speech Pattern: Spontaneous Speech Memory Description: Episodic Impaired Delusions: Present Thought Process: Rumination Thought Content: positive for Circumstantial, positive for Perseveration and positive for Suicidal Ideation Depressive Symptoms: Insomnia, Difficulty Sleeping, Changes in Appetite and Thoughts of /Suicide Judgement: Poor Diagnostics Vital Signs (24Hr): Vital Signs - 24 hr 07/31/24 20:00 08/01/24 08:00 08/01/24 09:30 Temperature 98.4 F 98 F 98.3 F Pulse Rate 94 95 127 H Respiratory Rate 16 18 Blood Pressure 129/81 153/97 H 164/94 H Pulse Oximetry 97 96 92 Oxygen Delivery Method Room Air Room Air Room Air 08/01/24 10:21 08/01/24 10:22 08/01/24 10:23 Temperature Pulse Rate 112 H 129 H 137 H Respiratory Rate Blood Pressure 131/89 154/96 H 218/146 H Pulse Oximetry 96 96 94 Oxygen Delivery Method Room Air Room Air Room Air 08/01/24 12:05 Temperature Pulse Rate 120 H Respiratory Rate Blood Pressure 139/99 H Pulse Oximetry 94 Oxygen Delivery Method Room Air BMI result Body Mass Index 36.4 Labs 07/29/24 15:52 07/29/24 15:52 Labs: Laboratory Results - last 48 hr 07/31/24 08/01/24 08:11 13:35 Estimat Average Glucose 108 Hemoglobin A1c % 5.4 Magnesium 2.2 Triglycerides 107 Cholesterol 202 H LDL Cholesterol, Calc 138 H HDL Cholesterol 43 Vitamin B12 410 Folate 7.0 TSH 1.21 Free T4 1.01 Influenza Type A (PCR) NEGATIVE Influenza Type B (PCR) NEGATIVE RSV RNA Qual (PCR) NEGATIVE SARS-CoV-2 RNA (RT-PCR) NEGATIVE Imaging Radiology Impressions: ITS Impressions Chest CTA 07/29/24 18:08 IMPRESSION: There are no filling defects within the main pulmonary artery, right or left pulmonary arteries, or lobar pulmonary arteries to indicate an acute pulmonary embolism. Evaluation of the segmental and subsegmental arteries is somewhat limited secondary to mixing artifact. The lungs are clear. VTE: Negative. Fleischner guidelines were followed. Electronically signed by: Yoni Garcias DO 07/29/2024 06:44 PM [facility] Medications Medications Current Medications Acetaminophen (Acetaminophen 325 Mg Tablet) 650 mg PO Q6H PRN PRN Reason: Headache/Pain Mild Scale (1-3) Al Hydroxide/Mg Hydroxide (Magnesium Hydrox/Alum Hydrox 30 Ml Oral.Susp) 30 ml PO Q6H PRN PRN Reason: Heartburn/Nausea Amlodipine Besylate (Amlodipine Besylate 5 Mg Tablet) 5 mg PO DAILY [facility]; Protocol Last Admin: 08/01/24 13:34 Dose: 5 mg Hydroxyzine HCl (Hydroxyzine Hcl 25 Mg Tablet) 25 mg PO Q6H PRN PRN Reason: Anxiety Last Admin: 07/31/24 09:07 Dose: 25 mg Magnesium Hydroxide (Milk Of Magnesia 30 Ml Oral.Susp) 30 ml PO DAILY PRN PRN Reason: Constipation Last Admin: 07/31/24 09:07 Dose: 30 ml Mirtazapine (Mirtazapine 7.5 Mg Tablet) 7.5 mg PO BEDTIME [facility] Last Admin: 07/31/24 21:11 Dose: 7.5 mg Nicotine Polacrilex (Nicotine Polacrilex 2 Mg Gum) 4 mg BUCCAL Q2H PRN PRN Reason: Nicotine Cravings Risperidone (Risperidone 1 Mg Tablet) 1 mg PO BID [facility] Last Admin: 08/01/24 10:39 Dose: Not Given Risperidone (Risperidone 1 Mg Tablet) 1 mg PO BID PRN PRN Reason: psychosis, agitation Last Admin: 07/31/24 17:56 Dose: 1 mg Trazodone HCl (Trazodone Hcl 50 Mg Tablet) 50 mg PO BEDTIME [id number] PRN PRN Reason: Insomnia Allergies Allergies Allergy/AdvReac Type Severity Reaction Status Date / Time Penicillins Allergy Fever Verified 07/29/24 15:32 Assessment & Plan Assessment & Plan (1) MDD (major depressive disorder), recurrent severe, without psychosis: Status: Acute Code(s): F33.2 - Major depressive disorder, recurrent severe without psychotic features (2) Anxiety: Status: Acute Code(s): F41.9 - Anxiety disorder, unspecified Plan Depression, Anxiety, Mood dysregulation. Plan: Admit, CV, 15 minute checks Encourage full milieu Collateral contacts Diagnostics as needed Psychopharmacology evaluation Discharge planning. 08/01: Lorazepam 0.5 mg tid (hx of catatonia) Reason for continued inpatient stay Substantial Risk for: rapid decompensation and med/psych decompensation Time Spent With Patient Time: Total time managing care of this patient today ____ minutes.
[2024-08-01] MEDS: LORazepam 0.5 MG TABLET PO (22:00)
[2024-08-01] MEDS: risperiDONE 1 MG TABLET PO (22:01)
[2024-08-01] MEDS: Mirtazapine 7.5 MG TABLET PO (22:01)
[2024-08-02 08:24] VITALS: BP 146/98; PULSE 89; RESP 16; TEMP 36.9; O2SAT 95
[2024-08-02 08:30] VITALS: BP 146/98
[2024-08-02] MEDS: LORazepam 0.5 MG TABLET PO ×3 (08:30→20:55)
[2024-08-02] MEDS: risperiDONE 1 MG TABLET PO ×2 (08:30→20:55)
[2024-08-02] MEDS: amLODIPine Besylate 5 MG TABLET PO (08:30)
--- NOTE | 2024-08-02 09:54 | P.PNPSI_ITS ---
Subjective Subjective Date of Service: 08/02/24 Reason For Visit: depression, anxiety Interim History: Patient minimally engaged. Says he is well. Short answers to questions. Dismissive. Says he wanted to shower today but has no change of clothes. Appears paranoid and is guarded. Taking medications. Review of Systems Review of Systems presyncope Yes all other systems are reviewed and are negative Mental Status Exam Mental Status Exam Patient Appearance: Fatigued Patient Orientation: Person, Place, Time and Situation Level of Consciousness: Alert Patient Behavior: Guarded and Cooperative Mood Description: Withdrawn and Depressed Affect Description: Flat Patient Cognition Impaired: No Ability to Follow Directions: Fair Speech Pattern: Spontaneous Speech Memory Description: Episodic Impaired Diagnostics Vital Signs (24Hr): Vital Signs - 24 hr 08/01/24 10:21 08/01/24 10:22 08/01/24 10:23 Temperature Pulse Rate 112 H 129 H 137 H Respiratory Rate Blood Pressure 131/89 154/96 H 218/146 H Pulse Oximetry 96 96 94 Oxygen Delivery Method Room Air Room Air Room Air 08/01/24 12:05 08/01/24 20:00 08/02/24 08:24 Temperature 97.8 F 98.5 F Pulse Rate 120 H 122 H 89 Respiratory Rate 18 16 Blood Pressure 139/99 H 167/112 H 146/98 H Pulse Oximetry 94 98 95 Oxygen Delivery Method Room Air Room Air Room Air 08/02/24 08:30 Temperature Pulse Rate Respiratory Rate Blood Pressure 146/98 H Pulse Oximetry Oxygen Delivery Method BMI result Body Mass Index 36.4 Labs 07/29/24 15:52 07/29/24 15:52 Labs: Laboratory Results - last 48 hr 07/31/24 08/01/24 08:11 13:35 Vitamin B12 410 Folate 7.0 TSH 1.21 Free T4 1.01 Influenza Type A (PCR) NEGATIVE Influenza Type B (PCR) NEGATIVE RSV RNA Qual (PCR) NEGATIVE SARS-CoV-2 RNA (RT-PCR) NEGATIVE Imaging Radiology Impressions: ITS Impressions Chest CTA 07/29/24 18:08 IMPRESSION: There are no filling defects within the main pulmonary artery, right or left pulmonary arteries, or lobar pulmonary arteries to indicate an acute pulmonary embolism. Evaluation of the segmental and subsegmental arteries is somewhat limited secondary to mixing artifact. The lungs are clear. VTE: Negative. Fleischner guidelines were followed. Electronically signed by: Yoni Garcias DO 07/29/2024 06:44 PM [facility] Medications Medications Current Medications Acetaminophen (Acetaminophen 325 Mg Tablet) 650 mg PO Q6H PRN PRN Reason: Headache/Pain Mild Scale (1-3) Al Hydroxide/Mg Hydroxide (Magnesium Hydrox/Alum Hydrox 30 Ml Oral.Susp) 30 ml PO Q6H PRN PRN Reason: Heartburn/Nausea Amlodipine Besylate (Amlodipine Besylate 5 Mg Tablet) 5 mg PO DAILY [facility]; Protocol Last Admin: 08/02/24 08:30 Dose: 5 mg Hydroxyzine HCl (Hydroxyzine Hcl 25 Mg Tablet) 25 mg PO Q6H PRN PRN Reason: Anxiety Last Admin: 07/31/24 09:07 Dose: 25 mg Lorazepam (Lorazepam 0.5 Mg Tablet) 0.5 mg PO TID [facility] Last Admin: 08/02/24 08:30 Dose: 0.5 mg Magnesium Hydroxide (Milk Of Magnesia 30 Ml Oral.Susp) 30 ml PO DAILY PRN PRN Reason: Constipation Last Admin: 07/31/24 09:07 Dose: 30 ml Mirtazapine (Mirtazapine 7.5 Mg Tablet) 7.5 mg PO BEDTIME [facility] Last Admin: 08/01/24 22:01 Dose: 7.5 mg Nicotine Polacrilex (Nicotine Polacrilex 2 Mg Gum) 4 mg [place]CCAL Q2H PRN PRN Reason: Nicotine Cravings Risperidone (Risperidone 1 Mg Tablet) 1 mg PO BID [facility] Last Admin: 08/02/24 08:30 Dose: 1 mg Risperidone (Risperidone 1 Mg Tablet) 1 mg PO BID PRN PRN Reason: psychosis, agitation Last Admin: 07/31/24 17:56 Dose: 1 mg Trazodone HCl (Trazodone Hcl 50 Mg Tablet) 50 mg PO BEDTIME MRX1 PRN PRN Reason: Insomnia Allergies Allergies Allergy/AdvReac Type Severity Reaction Status Date / Time Penicillins Allergy Fever Verified 07/29/24 15:32 Assessment & Plan Assessment & Plan (1) MDD (major depressive disorder), recurrent severe, without psychosis: Status: Acute Code(s): F33.2 - Major depressive disorder, recurrent severe without psychotic features (2) Anxiety: Status: Acute Code(s): F41.9 - Anxiety disorder, unspecified Plan Depression, Anxiety, Mood dysregulation. Plan: Admit, CV, 15 minute checks Encourage full milieu Collateral contacts Diagnostics as needed Psychopharmacology evaluation Discharge planning. 08/01: Lorazepam 0.5 mg tid (hx of catatonia) 08/02: Continue current management and treatment plan. Monitor response to restarting medications. Reason for continued inpatient stay Substantial Risk for: harm to self, harm to others, inability to function, rapid decompensation and med/psych decompensation Time Spent With Patient Time: Total time managing care of this patient today ____ minutes.
[2024-08-02 20:00] VITALS: RESP 14
[2024-08-02] MEDS: Mirtazapine 7.5 MG TABLET PO (20:55)
[2024-08-03 08:41] VITALS: BP 173/103; PULSE 106; RESP 18; TEMP 36.3; O2SAT 96
[2024-08-03] MEDS: LORazepam 0.5 MG TABLET PO ×3 (08:59→21:20)
[2024-08-03] MEDS: amLODIPine Besylate 5 MG TABLET PO (08:59)
[2024-08-03] MEDS: risperiDONE 1 MG TABLET PO (08:59)
--- NOTE | 2024-08-03 15:03 | P.PNPSI_ITS ---
Subjective Subjective Date of Service: 08/03/24 Reason For Visit: depression, anxiety Subjective Notes: Conditional Voluntary Healthcare Proxy: No Guardianship: No Medical Problems Affecting Mental Status: No Interim History: Will I be here for six months.? States he is anxious to get his glasses as he feels he is not seeing the milieu and peers clearly. Denies SE, however, reports, I feel slower, calmer Apologetic, I was not too good when we met this week, it is getting better, I want to go home soon. Denies feeling overmedicated, denies feeling fearful on the unit. Open to work with medications-as it is reported he only slept 2-3 hours last night. Presents as somewhat guarded today. Team reports paranoia present in their interactions with his confirmation-seeing algorithms that were targeting him on this phone, staff talking about him. Medication Compliance: Yes Side effects from medications: No Attending Groups: No Review of Systems Acute medical concerns: No Medical Review of Systems: unchanged Review of Systems Review of Systems Denies Mental Status Exam Mental Status Exam Patient Appearance: Fatigued Patient Orientation: Person, Place, Time and Situation Level of Consciousness: Alert Patient Behavior: Guarded and Cooperative Mood Description: Withdrawn and Depressed Affect Description: Flat Patient Cognition Impaired: No Ability to Follow Directions: Fair Speech Pattern: Spontaneous Speech Memory Description: Episodic Impaired Delusions: Paranoid Ideation and Present Thought Content: positive for Thought Blocking and positive for Suicidal Ideation (denies) Judgement: Poor Diagnostics Vital Signs (24Hr): Vital Signs - 24 hr 08/02/24 20:00 08/03/24 08:41 Temperature 97.3 F Pulse Rate 106 H Respiratory Rate 14 18 Blood Pressure 173/103 H Pulse Oximetry 96 Oxygen Delivery Method Room Air BMI result Body Mass Index 36.4 Labs 07/29/24 15:52 07/29/24 15:52 Imaging Radiology Impressions: ITS Impressions Chest CTA 07/29/24 18:08 IMPRESSION: There are no filling defects within the main pulmonary artery, right or left pulmonary arteries, or lobar pulmonary arteries to indicate an acute pulmonary embolism. Evaluation of the segmental and subsegmental arteries is somewhat limited secondary to mixing artifact. The lungs are clear. VTE: Negative. Fleischner guidelines were followed. Electronically signed by: Yoni Garcias DO 07/29/2024 06:44 PM [facility] Medications Medications Current Medications Acetaminophen (Acetaminophen 325 Mg Tablet) 650 mg PO Q6H PRN PRN Reason: Headache/Pain Mild Scale (1-3) Al Hydroxide/Mg Hydroxide (Magnesium Hydrox/Alum Hydrox 30 Ml Oral.Susp) 30 ml PO Q6H PRN PRN Reason: Heartburn/Nausea Amlodipine Besylate (Amlodipine Besylate 10 Mg Tablet) 10 mg PO DAILY BRIAN; Protocol Hydroxyzine HCl (Hydroxyzine Hcl 25 Mg Tablet) 25 mg PO Q6H PRN PRN Reason: Anxiety Last Admin: 07/31/24 09:07 Dose: 25 mg Lorazepam (Lorazepam 0.5 Mg Tablet) 0.5 mg PO TID [facility]AN Last Admin: 08/03/24 08:59 Dose: 0.5 mg Magnesium Hydroxide (Milk Of Magnesia 30 Ml Oral.Susp) 30 ml PO DAILY PRN PRN Reason: Constipation Last Admin: 07/31/24 09:07 Dose: 30 ml Mirtazapine (Mirtazapine 7.5 Mg Tablet) 7.5 mg PO BEDTIME [facility] Last Admin: 08/02/24 20:55 Dose: 7.5 mg Nicotine Polacrilex (Nicotine Polacrilex 2 Mg Gum) 4 mg BUCCAL Q2H PRN PRN Reason: Nicotine Cravings Risperidone (Risperidone 1 Mg Tablet) 1 mg PO BID [facility] Last Admin: 08/03/24 08:59 Dose: 1 mg Risperidone (Risperidone 1 Mg Tablet) 1 mg PO BID PRN PRN Reason: psychosis, agitation Last Admin: 07/31/24 17:56 Dose: 1 mg Trazodone HCl (Trazodone Hcl 50 Mg Tablet) 50 mg PO BEDTIME MRX1 PRN PRN Reason: Insomnia Allergies Allergies Allergy/AdvReac Type Severity Reaction Status Date / Time Penicillins Allergy Fever Verified 07/29/24 15:32 Assessment & Plan Assessment & Plan (1) MDD (major depressive disorder), recurrent severe, without psychosis: Status: Acute Code(s): F33.2 - Major depressive disorder, recurrent severe without psychotic features (2) Anxiety: Status: Acute Code(s): F41.9 - Anxiety disorder, unspecified Plan Depression, Anxiety, Mood dysregulation. Plan: Admit, CV, 15 minute checks Encourage full milieu Collateral contacts Diagnostics as needed Psychopharmacology evaluation Discharge planning. 08/01: Lorazepam 0.5 mg tid (hx of catatonia) 08/02: Continue current management and treatment plan. Monitor response to restarting medications. 08/03: Increase Risperdal to 2 mg bid Increase Remeron to 15 mg HS Reason for continued inpatient stay Substantial Risk for: rapid decompensation Time Spent With Patient Time: Total time managing care of this patient today ____ minutes.
[2024-08-03] MEDS: risperiDONE 2 MG TABLET PO (21:20)
[2024-08-03] MEDS: Mirtazapine 15 MG TABLET PO (21:20)
[2024-08-04 08:00] VITALS: BP 173/99; PULSE 92; RESP 16; TEMP 36.8; O2SAT 96
[2024-08-04] MEDS: amLODIPine Besylate 10 MG TABLET PO (08:36)
[2024-08-04] MEDS: risperiDONE 2 MG TABLET PO ×2 (08:36→21:15)
[2024-08-04] MEDS: LORazepam 0.5 MG TABLET PO ×3 (08:36→21:16)
--- NOTE | 2024-08-04 10:49 | P.PNPSI_ITS ---
Subjective Subjective Date of Service: 08/04/24 Reason For Visit: depression, anxiety Interim History: I'm fine.. Patient reports he is feeling OK. He remains guarded and difficult to engage. He is mostly isolative to self. Quiet. Somewhat desheveled. Refusing shower. Denies SI. Denies AVH. Tolerating medications. Adherent. Later in the day, reported feeling faint and felt heart was racing after waking up from nap. VSS. Received Ativan and felt better afterwards. Review of Systems Review of Systems Denies Yes all other systems are reviewed and are negative Mental Status Exam Mental Status Exam Patient Appearance: Fatigued Patient Orientation: Person, Place, Time and Situation Level of Consciousness: Alert Patient Behavior: Guarded and Cooperative Mood Description: Withdrawn and Depressed Affect Description: Flat Patient Cognition Impaired: No Ability to Follow Directions: Fair Speech Pattern: Spontaneous Speech Memory Description: Episodic Impaired Diagnostics Vital Signs (24Hr): Vital Signs - 24 hr 08/04/24 08:00 Temperature 98.2 F Pulse Rate 92 Respiratory Rate 16 Blood Pressure 173/99 H Pulse Oximetry 96 Oxygen Delivery Method Room Air BMI result Body Mass Index 36.4 Labs 07/29/24 15:52 07/29/24 15:52 Imaging Radiology Impressions: ITS Impressions Chest CTA 07/29/24 18:08 IMPRESSION: There are no filling defects within the main pulmonary artery, right or left pulmonary arteries, or lobar pulmonary arteries to indicate an acute pulmonary embolism. Evaluation of the segmental and subsegmental arteries is somewhat limited secondary to mixing artifact. The lungs are clear. VTE: Negative. Fleischner guidelines were followed. Electronically signed by: Yoni Garcias DO 07/29/2024 06:44 PM [facility] Medications Medications Current Medications Acetaminophen (Acetaminophen 325 Mg Tablet) 650 mg PO Q6H PRN PRN Reason: Headache/Pain Mild Scale (1-3) Al Hydroxide/Mg Hydroxide (Magnesium Hydrox/Alum Hydrox 30 Ml Oral.Susp) 30 ml PO Q6H PRN PRN Reason: Heartburn/Nausea Amlodipine Besylate (Amlodipine Besylate 10 Mg Tablet) 10 mg PO DAILY [facility]; Protocol Last Admin: 08/04/24 08:36 Dose: 10 mg Hydroxyzine HCl (Hydroxyzine Hcl 25 Mg Tablet) 25 mg PO Q6H PRN PRN Reason: Anxiety Last Admin: 07/31/24 09:07 Dose: 25 mg Lorazepam (Lorazepam 0.5 Mg Tablet) 0.5 mg PO TID [facility] Last Admin: 08/04/24 08:36 Dose: 0.5 mg Magnesium Hydroxide (Milk Of Magnesia 30 Ml Oral.Susp) 30 ml PO DAILY PRN PRN Reason: Constipation Last Admin: 07/31/24 09:07 Dose: 30 ml Mirtazapine (Mirtazapine 15 Mg Tablet) 15 mg PO BEDTIME [facility] Last Admin: 08/03/24 21:20 Dose: 15 mg Nicotine Polacrilex (Nicotine Polacrilex 2 Mg Gum) 4 mg BUCCAL Q2H PRN PRN Reason: Nicotine Cravings Risperidone (Risperidone 1 Mg Tablet) 1 mg PO BID PRN PRN Reason: psychosis, agitation Last Admin: 07/31/24 17:56 Dose: 1 mg Risperidone (Risperidone 2 Mg Tablet) 2 mg PO BID [facility] Last Admin: 08/04/24 08:36 Dose: 2 mg Trazodone HCl (Trazodone Hcl 50 Mg Tablet) 50 mg PO BEDTIME MRX1 PRN PRN Reason: Insomnia Allergies Allergies Allergy/AdvReac Type Severity Reaction Status Date / Time Penicillins Allergy Fever Verified 07/29/24 15:32 olanzapine AdvReac Severe other Verified 08/03/24 17:10 Assessment & Plan Assessment & Plan (1) MDD (major depressive disorder), recurrent severe, without psychosis: Status: Acute Code(s): F33.2 - Major depressive disorder, recurrent severe without psychotic features (2) Anxiety: Status: Acute Code(s): F41.9 - Anxiety disorder, unspecified Plan Depression, Anxiety, Mood dysregulation. Plan: Admit, CV, 15 minute checks Encourage full milieu Collateral contacts Diagnostics as needed Psychopharmacology evaluation Discharge planning. 08/01: Lorazepam 0.5 mg tid (hx of catatonia) 08/02: Continue current management and treatment plan. Monitor response to restarting medications. 08/03: Increase Risperdal to 2 mg bid Increase Remeron to 15 mg HS 08/04: Continue current management and treatment plan. Reason for continued inpatient stay Substantial Risk for: harm to self, inability to function, rapid decompensation and med/psych decompensation Time Spent With Patient Time: Total time managing care of this patient today ____ minutes.
[2024-08-04 14:20] VITALS: BP 158/99; PULSE 124; RESP 18; O2SAT 96
[2024-08-04 14:40] VITALS: BP 135/94; PULSE 130; RESP 18; TEMP 36.8; O2SAT 93
[2024-08-04 14:41] VITALS: BP 133/83; PULSE 136; RESP 18; O2SAT 94
[2024-08-04 14:41] LABS: Glucose, Whole Blood 117 mg/dL (60-115)
[2024-08-04 19:59] VITALS: BP 134/89; PULSE 113; RESP 20; TEMP 36.4; O2SAT 96
--- NOTE | 2024-08-04 21:09 | PC.NURSE ---
signed a 3 day notice on sat 08/04/2024.up on wed 08/08/2024
[2024-08-04] MEDS: Mirtazapine 15 MG TABLET PO (21:16)
--- NOTE | 2024-08-05 | ECG_ITS ---
Test Reason : presyncope Blood Pressure : / mmHG Vent. Rate : 119 BPM Atrial Rate : 119 BPM P-R Int : 158 ms QRS Dur : 088 ms QT Int : 306 ms P-R-T Axes : 053 046 042 degrees QTc Int : 430 ms Sinus tachycardia Otherwise normal ECG When compared with ECG of 29-JUL-2024 15:42, Borderline criteria for Anterior infarct are no longer Present Nonspecific T wave abnormality has replaced inverted T waves in Inferior leads Nonspecific T wave abnormality no longer evident in Anterior leads Referred By: Edwar Shultz Electronically Signed By:Adam Castro
[2024-08-05 08:16] VITALS: BP 128/77
[2024-08-05] MEDS: amLODIPine Besylate 10 MG TABLET PO (08:16)
[2024-08-05] MEDS: LORazepam 0.5 MG TABLET PO ×3 (08:16→20:10)
[2024-08-05] MEDS: risperiDONE 2 MG TABLET PO ×2 (08:17→20:10)
--- NOTE | 2024-08-05 09:17 | P.PNPSI_ITS ---
Subjective Subjective Date of Service: 08/05/24 Reason For Visit: depression, anxiety Interim History: Complaining of blurry vision. Yesterday had a near syncope attack. Had orthostatic changes in heart rate. Checked EKG today. Read as tachycardia but otherwise WNL. Adherent to medications. Denies SI. Denies AVH. Review of Systems Review of Systems Denies Yes all other systems are reviewed and are negative Mental Status Exam Mental Status Exam Patient Appearance: Fatigued Patient Orientation: Person, Place, Time and Situation Level of Consciousness: Alert Patient Behavior: Guarded and Cooperative Mood Description: Withdrawn and Depressed Affect Description: Flat Patient Cognition Impaired: No Ability to Follow Directions: Fair Speech Pattern: Spontaneous Speech Memory Description: Episodic Impaired Diagnostics Vital Signs (24Hr): Vital Signs - 24 hr 08/04/24 14:20 08/04/24 14:40 08/04/24 14:41 Temperature 98.2 F Pulse Rate 124 H 130 H 136 H Respiratory Rate 18 18 18 Blood Pressure 158/99 H 135/94 H 133/83 Pulse Oximetry 96 93 94 Oxygen Delivery Method Room Air Room Air 08/04/24 19:59 08/05/24 08:16 Temperature 97.6 F Pulse Rate 113 H Respiratory Rate 20 Blood Pressure 134/89 128/77 Pulse Oximetry 96 Oxygen Delivery Method Room Air BMI result Body Mass Index 36.4 Labs 07/29/24 15:52 07/29/24 15:52 Labs: Laboratory Results - last 48 hr 08/04/24 14:36 POC Glucose 117 H Imaging Radiology Impressions: ITS Impressions Chest CTA 07/29/24 18:08 IMPRESSION: There are no filling defects within the main pulmonary artery, right or left pulmonary arteries, or lobar pulmonary arteries to indicate an acute pulmonary embolism. Evaluation of the segmental and subsegmental arteries is somewhat limited secondary to mixing artifact. The lungs are clear. VTE: Negative. Fleischner guidelines were followed. Electronically signed by: Yoni Garcias DO 07/29/2024 06:44 PM [facility] Medications Medications Current Medications Acetaminophen (Acetaminophen 325 Mg Tablet) 650 mg PO Q6H PRN PRN Reason: Headache/Pain Mild Scale (1-3) Al Hydroxide/Mg Hydroxide (Magnesium Hydrox/Alum Hydrox 30 Ml Oral.Susp) 30 ml PO Q6H PRN PRN Reason: Heartburn/Nausea Amlodipine Besylate (Amlodipine Besylate 10 Mg Tablet) 10 mg PO DAILY BRIAN; Protocol Last Admin: 08/05/24 08:16 Dose: 10 mg Hydroxyzine HCl (Hydroxyzine Hcl 25 Mg Tablet) 25 mg PO Q6H PRN PRN Reason: Anxiety Last Admin: 07/31/24 09:07 Dose: 25 mg Lorazepam (Lorazepam 0.5 Mg Tablet) 0.5 mg PO TID [facility] Last Admin: 08/05/24 08:16 Dose: 0.5 mg Magnesium Hydroxide (Milk Of Magnesia 30 Ml Oral.Susp) 30 ml PO DAILY PRN PRN Reason: Constipation Last Admin: 07/31/24 09:07 Dose: 30 ml Mirtazapine (Mirtazapine 15 Mg Tablet) 15 mg PO BEDTIME [facility] Last Admin: 08/04/24 21:16 Dose: 15 mg Nicotine Polacrilex (Nicotine Polacrilex 2 Mg Gum) 4 mg BUCCAL Q2H PRN PRN Reason: Nicotine Cravings Risperidone (Risperidone 1 Mg Tablet) 1 mg PO BID PRN PRN Reason: psychosis, agitation Last Admin: 07/31/24 17:56 Dose: 1 mg Risperidone (Risperidone 2 Mg Tablet) 2 mg PO BID [facility] Last Admin: 08/05/24 08:17 Dose: 2 mg Trazodone HCl (Trazodone Hcl 50 Mg Tablet) 50 mg PO BEDTIME MRX1 PRN PRN Reason: Insomnia Allergies Allergies Allergy/AdvReac Type Severity Reaction Status Date / Time Penicillins Allergy Fever Verified 07/29/24 15:32 olanzapine AdvReac Severe other Verified 08/03/24 17:10 Assessment & Plan Assessment & Plan (1) MDD (major depressive disorder), recurrent severe, without psychosis: Status: Acute Code(s): F33.2 - Major depressive disorder, recurrent severe without psychotic features (2) Anxiety: Status: Acute Code(s): F41.9 - Anxiety disorder, unspecified Plan Depression, Anxiety, Mood dysregulation. Plan: Admit, CV, 15 minute checks Encourage full milieu Collateral contacts Diagnostics as needed Psychopharmacology evaluation Discharge planning. 08/01: Lorazepam 0.5 mg tid (hx of catatonia) 08/02: Continue current management and treatment plan. Monitor response to restarting medications. 08/03: Increase Risperdal to 2 mg bid Increase Remeron to 15 mg HS 08/04: Continue current management and treatment plan. 08/05: If orthostasis continues consider lowering Risperdal or switching. Reason for continued inpatient stay Substantial Risk for: harm to self, inability to function and rapid decompensation Time Spent With Patient Time: Total time managing care of this patient today ____ minutes.
[2024-08-05 10:24] VITALS: BP 128/77; PULSE 92; RESP 16; TEMP 36.9; O2SAT 97
[2024-08-05 11:01] VITALS: BP 140/94; PULSE 116; RESP 18; O2SAT 98
--- NOTE | 2024-08-05 11:14 | PC.NURSE ---
Addendum entered by Ailyn Navarro RN 08/05/24 11:50: provider MAKEDA notifed , no further orders given. Pt is socializing w/ peer and writing down notes, no visual distress noted, handwriting legible and even Addendum entered by Ailyn Navarro RN 08/05/24 11:25: orthostatic vitals obtained at 1120; Laying BP 142/85 Pulse 91, 1121 Standing BP 168/72, Pulse 128 Original Note: pt approached TW @ approximately 1056 with reports of blurry vision and states it just started happening. It feels like my pupils are going to close and I can't see . Vitals taken Pulse 116, BP 140/94. Pt is visibly anxious, tapping foot and looking around the room. Provider MAKEDA notified and requested orthostatic vitals. Pt instructed to lay down and nurse will approach in 5min to reasess. Pt currenty resting in bed.
[2024-08-05 20:00] VITALS: BP 160/78; PULSE 106; O2SAT 97
[2024-08-05] MEDS: Mirtazapine 15 MG TABLET PO (20:10)
[2024-08-06 08:21] VITALS: BP 164/89; PULSE 90; TEMP 36.6; O2SAT 98
[2024-08-06] MEDS: amLODIPine Besylate 10 MG TABLET PO (08:49)
[2024-08-06] MEDS: risperiDONE 2 MG TABLET PO (08:50)
[2024-08-06] MEDS: LORazepam 0.5 MG TABLET PO ×2 (08:50→20:39)
--- NOTE | 2024-08-06 10:18 | P.PNPSI_ITS ---
Subjective Subjective Date of Service: 08/06/24 Reason For Visit: depression, anxiety Subjective Notes: Conditional Voluntary and 3 Day Healthcare Proxy: No Guardianship: No Medical Problems Affecting Mental Status: No Interim History: Reports meds make him feel less clear, more groggy with blurred vision. Reports he cannot feel my stomach and feels less well than on admission. States he is attempting to make sense out of the year. Identifies meds as making him feel weird. States since medications his private parts have shrunk and asks for testosterone. Denies CP, denies SOB. Has a goal to return to work. Asks to stop Risperdal as it makes him less clear and more drowsey. Agrees to family meeting prior to discharge. States he feels bored on the unit. Denies SI, HI, voices, visions. Medication Compliance: Yes Side effects from medications: Yes Attending Groups: No Review of Systems Acute medical concerns: No Review of Systems Review of Systems as noted in HPI Mental Status Exam Mental Status Exam Patient Appearance: Fatigued Patient Orientation: Person, Place, Time and Situation Level of Consciousness: Alert Patient Behavior: Guarded and Cooperative Mood Description: Withdrawn and Depressed Affect Description: Flat Patient Cognition Impaired: No Ability to Follow Directions: Fair Speech Pattern: Spontaneous Speech Memory Description: Episodic Impaired Diagnostics Vital Signs (24Hr): Vital Signs - 24 hr 08/05/24 10:24 08/05/24 11:01 08/05/24 20:00 Temperature 98.4 F Pulse Rate 92 116 H 106 H Respiratory Rate 16 18 Blood Pressure 128/77 140/94 H 160/78 H Pulse Oximetry 97 98 97 Oxygen Delivery Method Room Air Room Air Room Air 08/06/24 08:21 Temperature 97.8 F Pulse Rate 90 Respiratory Rate Blood Pressure 164/89 H Pulse Oximetry 98 Oxygen Delivery Method Room Air BMI result Body Mass Index 36.4 Labs 07/29/24 15:52 07/29/24 15:52 Labs: Laboratory Results - last 48 hr 08/04/24 14:36 POC Glucose 117 H Imaging Radiology Impressions: ITS Impressions Chest CTA 07/29/24 18:08 IMPRESSION: There are no filling defects within the main pulmonary artery, right or left pulmonary arteries, or lobar pulmonary arteries to indicate an acute pulmonary embolism. Evaluation of the segmental and subsegmental arteries is somewhat limited secondary to mixing artifact. The lungs are clear. VTE: Negative. Fleischner guidelines were followed. Electronically signed by: Yoni Garcias DO 07/29/2024 06:44 PM [facility] Medications Medications Current Medications Acetaminophen (Acetaminophen 325 Mg Tablet) 650 mg PO Q6H PRN PRN Reason: Headache/Pain Mild Scale (1-3) Al Hydroxide/Mg Hydroxide (Magnesium Hydrox/Alum Hydrox 30 Ml Oral.Susp) 30 ml PO Q6H PRN PRN Reason: Heartburn/Nausea Amlodipine Besylate (Amlodipine Besylate 10 Mg Tablet) 10 mg PO DAILY [facility]; Protocol Last Admin: 08/06/24 08:49 Dose: 10 mg Hydroxyzine HCl (Hydroxyzine Hcl 25 Mg Tablet) 25 mg PO Q6H PRN PRN Reason: Anxiety Last Admin: 07/31/24 09:07 Dose: 25 mg Lorazepam (Lorazepam 0.5 Mg Tablet) 0.5 mg PO TID [facility] Last Admin: 08/06/24 08:50 Dose: 0.5 mg Magnesium Hydroxide (Milk Of Magnesia 30 Ml Oral.Susp) 30 ml PO DAILY PRN PRN Reason: Constipation Last Admin: 07/31/24 09:07 Dose: 30 ml Mirtazapine (Mirtazapine 15 Mg Tablet) 15 mg PO BEDTIME [facility] Last Admin: 08/05/24 20:10 Dose: 15 mg Nicotine Polacrilex (Nicotine Polacrilex 2 Mg Gum) 4 mg BUCCAL Q2H PRN PRN Reason: Nicotine Cravings Risperidone (Risperidone 1 Mg Tablet) 1 mg PO BID PRN PRN Reason: psychosis, agitation Last Admin: 07/31/24 17:56 Dose: 1 mg Risperidone (Risperidone 2 Mg Tablet) 2 mg PO BID [facility] Last Admin: 08/06/24 08:50 Dose: 2 mg Trazodone HCl (Trazodone Hcl 50 Mg Tablet) 50 mg PO BEDTIME MRX1 PRN PRN Reason: Insomnia Allergies Allergies Allergy/AdvReac Type Severity Reaction Status Date / Time Penicillins Allergy Fever Verified 07/29/24 15:32 olanzapine AdvReac Severe other Verified 08/03/24 17:10 Assessment & Plan Assessment & Plan (1) MDD (major depressive disorder), recurrent severe, without psychosis: Status: Acute Code(s): F33.2 - Major depressive disorder, recurrent severe without psychotic features (2) Anxiety: Status: Acute Code(s): F41.9 - Anxiety disorder, unspecified Plan Depression, Anxiety, Mood dysregulation. Plan: Admit, CV, 15 minute checks Encourage full milieu Collateral contacts Diagnostics as needed Psychopharmacology evaluation Discharge planning. 08/01: Lorazepam 0.5 mg tid (hx of catatonia) 08/02: Continue current management and treatment plan. Monitor response to restarting medications. 08/03: Increase Risperdal to 2 mg bid Increase Remeron to 15 mg HS 08/04: Continue current management and treatment plan. 08/05: If orthostasis continues consider lowering Risperdal or switching. 08/06: DC Risperdal Chlorpromazine 25 mg q6hprn psychosis Testosterone level Reason for continued inpatient stay Substantial Risk for: rapid decompensation and med/psych decompensation Time Spent With Patient Time: Total time managing care of this patient today ____ minutes.
[2024-08-06 19:03] LABS: Glucose, Whole Blood 117 mg/dL (60-115)
--- NOTE | 2024-08-06 19:12 | PM.EVENT ---
Event Note Date of Service: 08/06/24 Event Note: Rapid response called at 6:57 pm. I went to evaluate the patient who lowered himself to the floor reporting feeling muscle weakness and chills. He has been feeling this way for few days now. reported cough and sore throat as well. no fall , head injury or LOC. Constitutional : Awake, interactive, not in distress Neck : Normal inspection, Supple, throat mildly congested Cardiovascular : RRR, no JVP, no lower extremity edema Respiratory : good bilateral air entry, no crackles, wheezes or rhonchi Gastrointestinal: soft, lax, Normal bowel sounds, Non tender Skin : Warm, Dry Neurological : Alert & oriented x3, No focal deficit Plan: advised to drink fluids and stay hydrated check Viral panel CBC, BMP and lactic acid will follow as needed Time Spent With Patient Time: Total time managing care of this patient today ____ minutes.
[2024-08-06 19:44] LABS: Hematocrit 39.5 % (42.0-52.0); Hemoglobin 14.2 g/dl (14.0-18.0); Mean Corpuscular HGB Conc 35.9 g/dl (31.0-36.0); Mean Corpuscular Hemoglobin 30.2 pg (27.0-33.0); Mean Platelet Volume 8.8 fL (9.4-12.4); Platelet Count 202 X10*3/uL (160-400); Red Cell Distribution Width 12.4 % (11.0-16.0); White Blood Count 6.7 X10*3/uL (4.8-10.8)
[2024-08-06 19:56] LABS: Anion Gap 10 (12-20); Blood Urea Nitrogen 21 mg/dL (9-16); Calcium 9.1 mg/dL (8.4-10.2); Carbon Dioxide 25 mmol/L (22-29); Chloride 107 mmol/L (96-108); Creatinine Clr Calc Pharmacy 166.3; Estimated Glomerular Filt Rate > 60; Glucose Random 120 mg/dL (60-115); Potassium 4.1 mmol/L (3.3-5.1); Sodium 138 mmol/L (135-145)
[2024-08-06 19:57] LABS: Lactic Acid 1.5 mmol/L (0.5-2.0)
[2024-08-06 20:00] VITALS: BP 132/74; PULSE 104; TEMP 36.8; O2SAT 97
--- NOTE | 2024-08-06 20:22 | PC.NURSE ---
At approx 1855 Jabari reported feeling weak, dizzy, shaky & lightheaded. He was assisted to lay down on floor. BP 179/105, HR 115, O2 sats 99%. POC 117. An [facility] [employer] DENTIST was called. Pt was unable to stand getting to wheelchair. Assisted to w/c with max assist & pt's legs were flaccid. Pt wheeled to his room... & he stated Why aren't I going to the ER? We informed him his needs will be met here. Hospitalist ordered labs & pt was encouraged to hydrate orally. Pt then stood up from w/c to get in his bed. Will continue to monitor & follow-up as appropriate. (see hospitalist note). Dr Rashid made aware.
[2024-08-06] MEDS: Mirtazapine 15 MG TABLET PO (20:39)
[2024-08-07] MEDS: hydrOXYzine HCL 25 MG TABLET PO (00:14)
[2024-08-07 05:35] VITALS: BP 163/89; PULSE 103; RESP 18; TEMP 36.6; O2SAT 97
[2024-08-07] MEDS: chlorproMAZINE HCl 25 MG TABLET PO (05:44)
--- NOTE | 2024-08-07 05:46 | PC.NURSE ---
At approximately 0535, this patient lowered himself onto the floor in front of this chief underwriter without hitting his head. He stated I'm dizzy, and feel like I'm dying. He denied pain, but complained of nausea. His VS were taken at this time (see VS documentation) and were within normal limits, as was his finger stick blood glucose (of 99.) Jabari could not tell this chief underwriter why he felt like he was dying. PRN medication was administered and the patient is having a snack as of the time of this writing. Will continue with plan of care.
[2024-08-07 05:50] LABS: Glucose, Whole Blood 99 mg/dL (60-115)
[2024-08-07 08:00] VITALS: BP 143/101; PULSE 100; RESP 18; TEMP 36.8; O2SAT 98
[2024-08-07] MEDS: LORazepam 0.5 MG TABLET PO (08:35)
[2024-08-07] MEDS: amLODIPine Besylate 10 MG TABLET PO (08:35)
--- NOTE | 2024-08-07 09:41 | HO.PSYCHPN ---
Subjective Subjective Reason For Visit: depression, anxiety Diagnostics Vital Signs (24Hr): Vital Signs - 24 hr 08/06/24 20:00 08/07/24 05:35 08/07/24 08:00 Temperature 98.2 F 97.9 F 98.2 F Pulse Rate 104 H 103 H 100 Respiratory Rate 18 18 Blood Pressure 132/74 163/89 H 143/101 H Pulse Oximetry 97 97 98 Oxygen Delivery Method Room Air Room Air Room Air BMI result Body Mass Index 36.4 Labs 08/06/24 19:34 08/06/24 19:34 Labs: Laboratory Results - last 48 hr 08/06/24 08/06/24 08/07/24 19:00 19:34 05:46 WBC 6.7 RBC 4.70 Hgb 14.2 Hct 39.5 L MCV 84.0 MCH 30.2 MCHC 35.9 RDW 12.4 Plt Count 202 MPV 8.8 L Absolute Nucleated RBC 0.000 Nucleated RBC % (auto) 0.0 Sodium 138 Potassium 4.1 Chloride 107 Carbon Dioxide 25 Anion Gap 10 L BUN 21 H Creatinine 0.92 Estim Creat Clear Calc 166.3 Estimated GFR > 60 POC Glucose 117 H 99 Random Glucose 120 H Lactic Acid 1.5 Calcium 9.1 Imaging Radiology Impressions: ITS Impressions Chest CTA 07/29/24 18:08 IMPRESSION: There are no filling defects within the main pulmonary artery, right or left pulmonary arteries, or lobar pulmonary arteries to indicate an acute pulmonary embolism. Evaluation of the segmental and subsegmental arteries is somewhat limited secondary to mixing artifact. The lungs are clear. VTE: Negative. Fleischner guidelines were followed. Electronically signed by: Yoni Garcias DO 07/29/2024 06:44 PM EST Medications Medications Current Medications Acetaminophen (Acetaminophen 325 Mg Tablet) 650 mg PO Q6H PRN PRN Reason: Headache/Pain Mild Scale (1-3) Al Hydroxide/Mg Hydroxide (Magnesium Hydrox/Alum Hydrox 30 Ml Oral.Susp) 30 ml PO Q6H PRN PRN Reason: Heartburn/Nausea Amlodipine Besylate (Amlodipine Besylate 10 Mg Tablet) 10 mg PO DAILY BRIAN; Protocol Last Admin: 08/07/24 08:35 Dose: 10 mg Chlorpromazine HCl (Chlorpromazine Hcl 25 Mg Tablet) 25 mg PO Q6H PRN PRN Reason: psychosis Last Admin: 08/07/24 05:44 Dose: 25 mg Hydroxyzine HCl (Hydroxyzine Hcl 25 Mg Tablet) 25 mg PO Q6H PRN PRN Reason: Anxiety Last Admin: 08/07/24 00:14 Dose: 25 mg Lorazepam (Lorazepam 0.5 Mg Tablet) 0.5 mg PO TID BRIAN Last Admin: 08/07/24 08:35 Dose: 0.5 mg Magnesium Hydroxide (Milk Of Magnesia 30 Ml Oral.Susp) 30 ml PO DAILY PRN PRN Reason: Constipation Last Admin: 07/31/24 09:07 Dose: 30 ml Mirtazapine (Mirtazapine 15 Mg Tablet) 15 mg PO BEDTIME BRIAN Last Admin: 08/06/24 20:39 Dose: 15 mg Nicotine Polacrilex (Nicotine Polacrilex 2 Mg Gum) 4 mg BUCCAL Q2H PRN PRN Reason: Nicotine Cravings Trazodone HCl (Trazodone Hcl 50 Mg Tablet) 50 mg PO BEDTIME MRX1 PRN PRN Reason: Insomnia Allergies Allergies Allergy/AdvReac Type Severity Reaction Status Date / Time Penicillins Allergy Fever Verified 07/29/24 15:32 olanzapine AdvReac Severe other Verified 08/03/24 17:10 Assessment & Plan Assessment & Plan (1) MDD (major depressive disorder), recurrent severe, without psychosis: Status: Acute Code(s): F33.2 - Major depressive disorder, recurrent severe without psychotic features (2) Anxiety: Status: Acute Code(s): F41.9 - Anxiety disorder, unspecified Plan Depression, Anxiety, Mood dysregulation. Plan: Admit, CV, 15 minute checks Encourage full milieu Collateral contacts Diagnostics as needed Psychopharmacology evaluation Discharge planning. 08/01: Lorazepam 0.5 mg tid (hx of catatonia) 08/02: Continue current management and treatment plan. Monitor response to restarting medications. 08/03: Increase Risperdal to 2 mg bid Increase Remeron to 15 mg HS 08/04: Continue current management and treatment plan. 08/05: If orthostasis continues consider lowering Risperdal or switching. 08/06: DC Risperdal Chlorpromazine 25 mg q6hprn psychosis Testosterone level Time Spent With Patient Time: Total time managing care of this patient today ____ minutes.
--- NOTE | 2024-08-07 10:58 | HO.PSYCHPN ---
Subjective Subjective Date of Service: 08/07/24 Reason For Visit: depression, anxiety Interim History: met with patient; discussed with team; reviewed chart Weekend patient lowered himself to the ground, saying he was dizzy, wanted to go to the ER; rapid response called and decision was to treat him place. Same event happened again this morning at 05:00. Patient discussed and it sounds like it was more of an anxiety attack than anything else. He denies AH; denies SI. He says that he does have confused thoughts and it has been difficult for him to decide what he should do in a given moment. Try to discuss this further but patient kept saying I have cognitive decline.. And could not seem to elaborate. He said his coping skill was to just go to sleep. Broach the topic where patient broke his I phone and other things in his household because he thought some text were implying that he is Syriac. Patient again could not elaborate. He remains quiet, keeping himself, intermittently not eating Mental Status Exam Mental Status Exam Narrative: Pt is alert and oriented; behavior is cooperative, calm, isolative; patient is not in distress; dressed in hospital attire, disheveled; mood is described as depressed and affect congruent, blunted; eye contact minimal; Speech is sparse, giving 1 or 2 word answers; normal volume; somewhat of an odd prosody; significant psychomotor retardation present; thought process is goal directed but also distracted and truncated; Thought content is vaguely surrounding symptoms; on tx; positive for delusional/paranoid ideation; denies SI/HI; denies AVH. Patients insight and judgment impaired Diagnostics Vital Signs (24Hr): Vital Signs - 24 hr 08/06/24 20:00 08/07/24 05:35 08/07/24 08:00 Temperature 98.2 F 97.9 F 98.2 F Pulse Rate 104 H 103 H 100 Respiratory Rate 18 18 Blood Pressure 132/74 163/89 H 143/101 H Pulse Oximetry 97 97 98 Oxygen Delivery Method Room Air Room Air Room Air BMI result Body Mass Index 36.4 Labs 08/06/24 19:34 08/06/24 19:34 Labs: Laboratory Results - last 48 hr 08/06/24 08/06/24 08/07/24 19:00 19:34 05:46 WBC 6.7 RBC 4.70 Hgb 14.2 Hct 39.5 L MCV 84.0 MCH 30.2 MCHC 35.9 RDW 12.4 Plt Count 202 MPV 8.8 L Absolute Nucleated RBC 0.000 Nucleated RBC % (auto) 0.0 Sodium 138 Potassium 4.1 Chloride 107 Carbon Dioxide 25 Anion Gap 10 L BUN 21 H Creatinine 0.92 Estim Creat Clear Calc 166.3 Estimated GFR > 60 POC Glucose 117 H 99 Random Glucose 120 H Lactic Acid 1.5 Calcium 9.1 Imaging Radiology Impressions: ITS Impressions Chest CTA 07/29/24 18:08 IMPRESSION: There are no filling defects within the main pulmonary artery, right or left pulmonary arteries, or lobar pulmonary arteries to indicate an acute pulmonary embolism. Evaluation of the segmental and subsegmental arteries is somewhat limited secondary to mixing artifact. The lungs are clear. VTE: Negative. Fleischner guidelines were followed. Electronically signed by: Yoni Garcias DO 07/29/2024 06:44 PM [facility] Medications Medications Current Medications Acetaminophen (Acetaminophen 325 Mg Tablet) 650 mg PO Q6H PRN PRN Reason: Headache/Pain Mild Scale (1-3) Al Hydroxide/Mg Hydroxide (Magnesium Hydrox/Alum Hydrox 30 Ml Oral.Susp) 30 ml PO Q6H PRN PRN Reason: Heartburn/Nausea Amlodipine Besylate (Amlodipine Besylate 10 Mg Tablet) 10 mg PO DAILY [facility]; Protocol Last Admin: 08/07/24 08:35 Dose: 10 mg Chlorpromazine HCl (Chlorpromazine Hcl 25 Mg Tablet) 25 mg PO Q6H PRN PRN Reason: psychosis Last Admin: 08/07/24 05:44 Dose: 25 mg Hydroxyzine HCl (Hydroxyzine Hcl 25 Mg Tablet) 25 mg PO Q6H PRN PRN Reason: Anxiety Last Admin: 08/07/24 00:14 Dose: 25 mg Lorazepam (Lorazepam 1 Mg Tablet) 1 mg PO TID BRIAN Lorazepam (Lorazepam 1 Mg Tablet) 1 mg PO ONCE ONE Stop: 08/07/24 10:53 Magnesium Hydroxide (Milk Of Magnesia 30 Ml Oral.Susp) 30 ml PO DAILY PRN PRN Reason: Constipation Last Admin: 07/31/24 09:07 Dose: 30 ml Mirtazapine (Mirtazapine 15 Mg Tablet) 15 mg PO BEDTIME BRIAN Last Admin: 08/06/24 20:39 Dose: 15 mg Nicotine Polacrilex (Nicotine Polacrilex 2 Mg Gum) 4 mg BUCCAL Q2H PRN PRN Reason: Nicotine Cravings Trazodone HCl (Trazodone Hcl 50 Mg Tablet) 50 mg PO BEDTIME MRX1 PRN PRN Reason: Insomnia Allergies Allergies Allergy/AdvReac Type Severity Reaction Status Date / Time Penicillins Allergy Fever Verified 07/29/24 15:32 olanzapine AdvReac Severe other Verified 08/03/24 17:10 Assessment & Plan Assessment & Plan (1) MDD (major depressive disorder), recurrent severe, without psychosis: Status: Acute Code(s): F33.2 - Major depressive disorder, recurrent severe without psychotic features (2) Anxiety: Status: Acute Code(s): F41.9 - Anxiety disorder, unspecified Plan Depression, Anxiety, Mood dysregulation. 08/01: Lorazepam 0.5 mg tid (hx of catatonia) 08/02: Continue current management and treatment plan. Monitor response to restarting medications. 08/03: Increase Risperdal to 2 mg bid Increase Remeron to 15 mg HS 08/04: Continue current management and treatment plan. 08/05: If orthostasis continues consider lowering Risperdal or switching. 08/06: DC Risperdal Chlorpromazine 25 mg q6hprn psychosis Testosterone level 08/07 Weekend patient lowered himself to the ground, saying he was dizzy, wanted to go to the ER; rapid response called and decision was to treat him place. Same event happened again this morning at 05:00. Patient discussed and it sounds like it was more of an anxiety attack than anything else. He denies AH; denies SI. He says that he does have confused thoughts and it has been difficult for him to decide what he should do in a given moment. Try to discuss this further but patient kept saying I have cognitive decline.. And could not seem to elaborate. He said his coping skill was to just go to sleep. Broach the topic where patient broke his I phone and other things in his household because he thought some text were implying that he is Syriac. Patient again could not elaborate. He remains quiet, keeping himself, intermittently not eating -patient retracted 3 day -patient has history of catatonia and current presentation is reminiscent of past catatonic symptoms. Will hold off on restarting Risperdal at this time and instead increase Ativan to 1 mg t.i.d. (not concerned about earlier reports of being dizzy, when patient lowered himself to the ground as this seemed to be more related to anxiety and behavioral rather than organic). Plan: CV, 15 minute checks Increase Ativan to 1 mg t.i.d. for catatonic like symptoms Encourage full milieu Collateral contacts Diagnostics as needed Psychopharmacology evaluation Discharge planning. Patient educated on: diagnosis, medication risk/benefits and therapeutic strategies Informed Consent: understands, does not understand and further education needed Reason for continued inpatient stay Substantial Risk for: inability to function Time Spent With Patient Time: Total time managing care of this patient today ____ minutes.
[2024-08-07] MEDS: LORazepam 1 MG TABLET PO ×2 (11:04→21:17)
[2024-08-07 13:25] LABS: Adenovirus PCR Not Detected (Not Detect.); Bordetella parapertussis PCR Not Detected (Not Detect.); Bordetella pertussis PCR Not Detected (Not Detect.); Chlamydia pneumoniae PCR Not Detected (Not Detect.); Coronavirus 229E PCR Not Detected (Not Detect.); Coronavirus HKU1 PCR Not Detected (Not Detect.); Coronavirus NL63 PCR Not Detected (Not Detect.); Coronavirus OC43 PCR Not Detected (Not Detect.); Human metapneumovirus PCR Not Detected (Not Detect.); Influenza A PCR Not Detected (Not Detect.); Influenza B PCR Not Detected (Not Detect.); Mycoplasma pneumoniae PCR Not Detected (Not Detect.); Parainfluenza 1 PCR Not Detected (Not Detect.); Parainfluenza 2 PCR Not Detected (Not Detect.); Parainfluenza 3 PCR Not Detected (Not Detect.); Parainfluenza 4 PCR Not Detected (Not Detect.); RSV PCR Not Detected (Not Detect.); Rhino/Enterovirus PCR Not Detected (Not Detect.)
[2024-08-07 13:52] LABS: SARS-CoV-2 PCR Not Detected (Not Detect.)
[2024-08-07 20:00] VITALS: RESP 16
[2024-08-07] MEDS: Mirtazapine 15 MG TABLET PO (21:17)
[2024-08-07] MEDS: Acetaminophen 325 MG TABLET 650 MG PO (21:17)
[2024-08-08 08:00] VITALS: BP 145/85; PULSE 101; TEMP 37.3; O2SAT 96
[2024-08-08] MEDS: Acetaminophen 325 MG TABLET 650 MG PO (08:36)
[2024-08-08] MEDS: amLODIPine Besylate 10 MG TABLET PO (08:37)
[2024-08-08] MEDS: LORazepam 1 MG TABLET PO ×3 (08:37→21:44)
--- NOTE | 2024-08-08 11:07 | P.PNPSI_ITS ---
Subjective Subjective Date of Service: 08/08/24 Reason For Visit: depression, anxiety Subjective Notes: Conditional Voluntary and 3 Day Healthcare Proxy: No Guardianship: No Medical Problems Affecting Mental Status: No Interim History: You have until Tuesday. Review of meds with pt. Agrees to Abilify trial, will begin with 2 mg HS. Appears to be thought blocking, responding to internal stimuli. No, my mind is just blank . Pt believes Risperdal trial has had effect on genitals, they are shrunken. He asks for testosterone injections. We agreed to draw a testosterone level as an initial intervention. Pt and team will have a telephone family meeting with pt's brother on 08/09. Encouraged to retract TDN as sx are still present and require intervention. Pt to consider. Medication Compliance: Intermittent Side effects from medications: No Attending Groups: Intermittent Review of Systems Acute medical concerns: No Review of Systems Review of Systems as noted in HPI Mental Status Exam Mental Status Exam Patient Appearance: Appropriate Patient Orientation: Person, Place, Time and Situation Level of Consciousness: Alert Patient Behavior: Talkative, Suspicious, Anxious, Avoidant, Distractible and Poor Eye Contact Mood Description: Constricted Affect Description: Constricted Patient Cognition Impaired: No Ability to Follow Directions: Good Speech Pattern: Spontaneous Speech Memory Description: Episodic Impaired Hallucinations: Auditory (it appears) Delusions: Paranoid Ideation and Present Perceptual Disturbances: Derealization Thought Process: Illogical, Distracted and Rumination Thought Content: positive for [place], positive for Circumstantial, positive for Perseveration, positive for Preoccupation, positive for Thought Blocking and positive for Suicidal Ideation (denies) Depressive Symptoms: Diff. Making Decisions, Thoughts of /Suicide (denies) and Low Self Esteem Abnormal Motor Activity Signs and Symptoms: Psychomotor Retardation Judgement: Fair Diagnostics Vital Signs (24Hr): Vital Signs - 24 hr 08/07/24 20:00 08/08/24 08:00 Temperature 99.1 F Pulse Rate 101 H Respiratory Rate 16 Blood Pressure 145/85 H Pulse Oximetry 96 Oxygen Delivery Method Room Air BMI result Body Mass Index 36.4 Labs 08/06/24 19:34 08/06/24 19:34 Labs: Laboratory Results - last 48 hr 08/06/24 08/06/24 08/07/24 19:00 19:34 05:46 WBC 6.7 RBC 4.70 Hgb 14.2 Hct 39.5 L MCV 84.0 MCH 30.2 MCHC 35.9 RDW 12.4 Plt Count 202 MPV 8.8 L Absolute Nucleated RBC 0.000 Nucleated RBC % (auto) 0.0 Sodium 138 Potassium 4.1 Chloride 107 Carbon Dioxide 25 Anion Gap 10 L BUN 21 H Creatinine 0.92 Estim Creat Clear Calc 166.3 Estimated GFR > 60 POC Glucose 117 H 99 Random Glucose 120 H Lactic Acid 1.5 Calcium 9.1 Respiratory Panel Lr Adenovirus (Rapid PCR) B.pert (TEM-PCR) B.parapertussis DNA PCR C. pneumoniae DNA (PCR) Coronavirus OC43 (PCR) Coronavirus HKU1 (PCR) Coronavirus 229E (PCR) Coronavirus NL63 (PCR) Human Metapneumovir PCR Influenza A (RT-PCR) Influenza B (RT-PCR) M. pneumoniae (PCR) Parainfluenza 1 (PCR) Parainfluenza 2 (PCR) Parainfluenza 3 (PCR) Parainfluenza 4 (PCR) RSV (PCR) Entero/Rhino (PCR) SARS-CoV-2 RNA (RT-PCR) 08/07/24 11:05 WBC RBC Hgb Hct MCV MCH MCHC RDW Plt Count MPV Absolute Nucleated RBC Nucleated RBC % (auto) Sodium Potassium Chloride Carbon Dioxide Anion Gap BUN Creatinine Estim Creat Clear Calc Estimated GFR POC Glucose Random Glucose Lactic Acid Calcium Respiratory Panel Lr See Note Adenovirus (Rapid PCR) Not Detected B.pert (TEM-PCR) Not Detected B.parapertussis DNA PCR Not Detected C. pneumoniae DNA (PCR) Not Detected Coronavirus OC43 (PCR) Not Detected Coronavirus HKU1 (PCR) Not Detected Coronavirus 229E (PCR) Not Detected Coronavirus NL63 (PCR) Not Detected Human Metapneumovir PCR Not Detected Influenza A (RT-PCR) Not Detected Influenza B (RT-PCR) Not Detected M. pneumoniae (PCR) Not Detected Parainfluenza 1 (PCR) Not Detected Parainfluenza 2 (PCR) Not Detected Parainfluenza 3 (PCR) Not Detected Parainfluenza 4 (PCR) Not Detected RSV (PCR) Not Detected Entero/Rhino (PCR) Not Detected SARS-CoV-2 RNA (RT-PCR) Not Detected Imaging Radiology Impressions: ITS Impressions Chest CTA 07/29/24 18:08 IMPRESSION: There are no filling defects within the main pulmonary artery, right or left pulmonary arteries, or lobar pulmonary arteries to indicate an acute pulmonary embolism. Evaluation of the segmental and subsegmental arteries is somewhat limited secondary to mixing artifact. The lungs are clear. VTE: Negative. Fleischner guidelines were followed. Electronically signed by: Yoni Garcias DO 07/29/2024 06:44 PM [facility] Medications Medications Current Medications Acetaminophen (Acetaminophen 325 Mg Tablet) 650 mg PO Q6H PRN PRN Reason: Headache/Pain Mild Scale (1-3) Last Admin: 08/08/24 08:36 Dose: 650 mg Al Hydroxide/Mg Hydroxide (Magnesium Hydrox/Alum Hydrox 30 Ml Oral.Susp) 30 ml PO Q6H PRN PRN Reason: Heartburn/Nausea Amlodipine Besylate (Amlodipine Besylate 10 Mg Tablet) 10 mg PO DAILY [facility]; Protocol Last Admin: 08/08/24 08:37 Dose: 10 mg Chlorpromazine HCl (Chlorpromazine Hcl 25 Mg Tablet) 25 mg PO Q6H PRN PRN Reason: psychosis Last Admin: 08/07/24 05:44 Dose: 25 mg Hydroxyzine HCl (Hydroxyzine Hcl 25 Mg Tablet) 25 mg PO Q6H PRN PRN Reason: Anxiety Last Admin: 08/07/24 00:14 Dose: 25 mg Lorazepam (Lorazepam 1 Mg Tablet) 1 mg PO TID BRIAN Last Admin: 08/08/24 08:37 Dose: 1 mg Magnesium Hydroxide (Milk Of Magnesia 30 Ml Oral.Susp) 30 ml PO DAILY PRN PRN Reason: Constipation Last Admin: 07/31/24 09:07 Dose: 30 ml Mirtazapine (Mirtazapine 15 Mg Tablet) 15 mg PO BEDTIME BRIAN Last Admin: 08/07/24 21:17 Dose: 15 mg Nicotine Polacrilex (Nicotine Polacrilex 2 Mg Gum) 4 mg BUCCAL Q2H PRN PRN Reason: Nicotine Cravings Trazodone HCl (Trazodone Hcl 50 Mg Tablet) 50 mg PO BEDTIME MRX1 PRN PRN Reason: Insomnia Allergies Allergies Allergy/AdvReac Type Severity Reaction Status Date / Time Penicillins Allergy Fever Verified 07/29/24 15:32 olanzapine AdvReac Severe other Verified 08/03/24 17:10 Assessment & Plan Assessment & Plan (1) MDD (major depressive disorder), recurrent severe, without psychosis: Status: Acute Code(s): F33.2 - Major depressive disorder, recurrent severe without psychotic features (2) Anxiety: Status: Acute Code(s): F41.9 - Anxiety disorder, unspecified Plan 08/08/24 -Abilify 2 mg HS -Family meeting by phone on 08/09 with pt's brother. -Encouraged pt to retract TDN and continue treatment. Reason for continued inpatient stay Substantial Risk for: rapid decompensation Time Spent With Patient Time: Total time managing care of this patient today ____ minutes.
--- NOTE | 2024-08-08 18:26 | PM.EVENT ---
Event Note Date of Service: 08/08/24 Event Note: bp still mildly elevated, will add lsoartan 25mg daily Time Spent With Patient Time: Total time managing care of this patient today ____ minutes.
[2024-08-08] MEDS: Ibuprofen 800 MG TABLET PO (18:28)
[2024-08-08 20:00] VITALS: RESP 16
[2024-08-08] MEDS: Mirtazapine 15 MG TABLET PO (21:44)
[2024-08-08] MEDS: ARIPiprazole 2 MG TABLET PO (21:44)
[2024-08-09 07:00] VITALS: BMI 36.3
[2024-08-09 08:00] VITALS: BP 157/95; PULSE 86; TEMP 36.3; O2SAT 96
[2024-08-09 09:06] VITALS: BP 157/95
[2024-08-09] MEDS: amLODIPine Besylate 10 MG TABLET PO (09:06)
[2024-08-09] MEDS: LORazepam 1 MG TABLET PO ×3 (09:06→21:12)
[2024-08-09 09:09] VITALS: BP 157/95
[2024-08-09] MEDS: Losartan Potassium 25 MG TABLET PO (09:09)
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
[2024-08-09 20:00] VITALS: BP 165/82; PULSE 121; RESP 20; TEMP 36.4; O2SAT 94
[2024-08-09] MEDS: ARIPiprazole 5 MG TABLET PO (21:12)
[2024-08-09] MEDS: Mirtazapine 15 MG TABLET PO (21:12)
[2024-08-10 08:00] VITALS: BP 139/88; PULSE 96; RESP 16; TEMP 37.1; O2SAT 96
[2024-08-10] MEDS: LORazepam 1 MG TABLET PO ×3 (08:45→21:24)
[2024-08-10] MEDS: Losartan Potassium 25 MG TABLET PO (08:45)
[2024-08-10] MEDS: amLODIPine Besylate 10 MG TABLET PO (08:45)
--- NOTE | 2024-08-10 10:31 | HO.PSYCHPN ---
Subjective Subjective Date of Service: 08/10/24 Reason For Visit: depression, anxiety Subjective Notes: Conditional Voluntary and 3 Day (retracted) Healthcare Proxy: No Guardianship: No Medical Problems Affecting Mental Status: No Interim History: Pt to groups this a.m. Making himself more visable and active in the milieu. Reading a book brought in by OT Director on [employer] to help him establish a schedule. Tolerating increase in Abilify. KUB results remain pending Reports no current concerns today. Medication Compliance: Yes Side effects from medications: No Attending Groups: Yes Review of Systems Acute medical concerns: No Review of Systems Review of Systems KUB pending Mental Status Exam Mental Status Exam Patient Appearance: Appropriate Patient Orientation: Person, Place, Time and Situation Level of Consciousness: Sedated and Alert Patient Behavior: Talkative, Anxious, Avoidant, Distractible and Poor Eye Contact Mood Description: Constricted Affect Description: Constricted Patient Cognition Impaired: No Ability to Follow Directions: Good Speech Pattern: Spontaneous Speech Memory Description: Episodic Impaired Hallucinations: Auditory (it appears) Delusions: Present Thought Process: Distracted and Rumination Thought Content: positive for [place], positive for Circumstantial, positive for Perseveration, positive for Preoccupation, positive for Thought Blocking and positive for Suicidal Ideation (denies) Depressive Symptoms: Diff. Making Decisions, Thoughts of /Suicide (denies) and Low Self Esteem Judgement: Fair Diagnostics Vital Signs (24Hr): Vital Signs - 24 hr 08/09/24 20:00 08/10/24 08:00 Temperature 97.6 F 98.7 F Pulse Rate 121 H 96 Respiratory Rate 20 16 Blood Pressure 165/82 H 139/88 Pulse Oximetry 94 96 Oxygen Delivery Method Room Air Room Air BMI result Body Mass Index 36.3 Labs 08/06/24 19:34 08/06/24 19:34 Imaging Radiology Impressions: ITS Impressions Chest CTA 07/29/24 18:08 IMPRESSION: There are no filling defects within the main pulmonary artery, right or left pulmonary arteries, or lobar pulmonary arteries to indicate an acute pulmonary embolism. Evaluation of the segmental and subsegmental arteries is somewhat limited secondary to mixing artifact. The lungs are clear. VTE: Negative. Fleischner guidelines were followed. Electronically signed by: Yoni Garcias DO 07/29/2024 06:44 PM [facility] Medications Medications Current Medications Acetaminophen (Acetaminophen 325 Mg Tablet) 650 mg PO Q6H PRN PRN Reason: Headache/Pain Mild Scale (1-3) Last Admin: 08/08/24 08:36 Dose: 650 mg Al Hydroxide/Mg Hydroxide (Magnesium Hydrox/Alum Hydrox 30 Ml Oral.Susp) 30 ml PO Q6H PRN PRN Reason: Heartburn/Nausea Amlodipine Besylate (Amlodipine Besylate 10 Mg Tablet) 10 mg PO DAILY [facility]; Protocol Last Admin: 08/10/24 08:45 Dose: 10 mg Aripiprazole (Aripiprazole 5 Mg Tablet) 5 mg PO BEDTIME BRIAN Last Admin: 08/09/24 21:12 Dose: 5 mg Chlorpromazine HCl (Chlorpromazine Hcl 25 Mg Tablet) 25 mg PO Q6H PRN PRN Reason: psychosis Last Admin: 08/07/24 05:44 Dose: 25 mg Hydroxyzine HCl (Hydroxyzine Hcl 25 Mg Tablet) 25 mg PO Q6H PRN PRN Reason: Anxiety Last Admin: 08/07/24 00:14 Dose: 25 mg Ibuprofen (Ibuprofen 800 Mg Tablet) 800 mg PO Q8H PRN PRN Reason: Migraine Headache Last Admin: 08/08/24 18:28 Dose: 800 mg Lorazepam (Lorazepam 1 Mg Tablet) 1 mg PO TID [facility] Last Admin: 08/10/24 08:45 Dose: 1 mg Losartan Potassium (Losartan Potassium 25 Mg Tablet) 25 mg PO DAILY [facility]; Protocol Last Admin: 08/10/24 08:45 Dose: 25 mg Magnesium Hydroxide (Milk Of Magnesia 30 Ml Oral.Susp) 30 ml PO DAILY PRN PRN Reason: Constipation Last Admin: 07/31/24 09:07 Dose: 30 ml Mirtazapine (Mirtazapine 15 Mg Tablet) 15 mg PO BEDTIME BRIAN Last Admin: 08/09/24 21:12 Dose: 15 mg Nicotine Polacrilex (Nicotine Polacrilex 2 Mg Gum) 4 mg BUCCAL Q2H PRN PRN Reason: Nicotine Cravings Trazodone HCl (Trazodone Hcl 50 Mg Tablet) 50 mg PO BEDTIME MRX1 PRN PRN Reason: Insomnia Allergies Allergies Allergy/AdvReac Type Severity Reaction Status Date / Time Penicillins Allergy Fever Verified 07/29/24 15:32 olanzapine AdvReac Severe other Verified 08/03/24 17:10 Assessment & Plan Assessment & Plan (1) MDD (major depressive disorder), recurrent severe, without psychosis: Status: Acute Code(s): F33.2 - Major depressive disorder, recurrent severe without psychotic features (2) Anxiety: Status: Acute Code(s): F41.9 - Anxiety disorder, unspecified Plan Depression, Anxiety, Mood dysregulation. 08/01: Lorazepam 0.5 mg tid (hx of catatonia) 08/02: Continue current management and treatment plan. Monitor response to restarting medications. 08/03: Increase Risperdal to 2 mg bid Increase Remeron to 15 mg HS 08/04: Continue current management and treatment plan. 08/05: If orthostasis continues consider lowering Risperdal or switching. 08/06: DC Risperdal Chlorpromazine 25 mg q6hprn psychosis Testosterone level 08/07 Weekend patient lowered himself to the ground, saying he was dizzy, wanted to go to the ER; rapid response called and decision was to treat him place. Same event happened again this morning at 05:00. Patient discussed and it sounds like it was more of an anxiety attack than anything else. He denies AH; denies SI. He says that he does have confused thoughts and it has been difficult for him to decide what he should do in a given moment. Try to discuss this further but patient kept saying I have cognitive decline.. And could not seem to elaborate. He said his coping skill was to just go to sleep. Broach the topic where patient broke his I phone and other things in his household because he thought some text were implying that he is [place]ian. Patient again could not elaborate. He remains quiet, keeping himself, intermittently not eating -patient retracted 3 day -patient has history of catatonia and current presentation is reminiscent of past catatonic symptoms. Will hold off on restarting Risperdal at this time and instead increase Ativan to 1 mg t.i.d. (not concerned about earlier reports of being dizzy, when patient lowered himself to the ground as this seemed to be more related to anxiety and behavioral rather than organic). 08/10: No changes today, continue current regime/plan. Plan: CV, 15 minute checks Increase Ativan to 1 mg t.i.d. for catatonic like symptoms Encourage full milieu Collateral contacts Diagnostics as needed Psychopharmacology evaluation Discharge planning. Reason for continued inpatient stay Substantial Risk for: rapid decompensation Time Spent With Patient Time: Total time managing care of this patient today ____ minutes.
[2024-08-10] MEDS: Magnesium Hydrox/Alum Hydrox 30 ML ORAL.SUSP PO (17:52)
[2024-08-10 20:00] VITALS: BP 113/61; PULSE 71; RESP 16; TEMP 36.8; O2SAT 96
[2024-08-10] MEDS: Mirtazapine 15 MG TABLET PO (21:24)
[2024-08-10] MEDS: ARIPiprazole 5 MG TABLET PO (21:24)
[2024-08-11 08:00] VITALS: BP 144/79; PULSE 92; RESP 20; TEMP 36.9; O2SAT 98
[2024-08-11] MEDS: LORazepam 1 MG TABLET PO ×3 (08:50→20:30)
[2024-08-11] MEDS: Losartan Potassium 25 MG TABLET PO (08:50)
[2024-08-11] MEDS: amLODIPine Besylate 10 MG TABLET PO (08:50)
[2024-08-11] MEDS: Ibuprofen 800 MG TABLET PO (08:53)
--- NOTE | 2024-08-11 09:55 | HO.PSYCHPN ---
Subjective Subjective Date of Service: 08/11/24 Reason For Visit: depression, anxiety Interim History: Met with patient; discussed with team Patient says that he is better and that he slept very well last night. He also says that he is eating more and that his thinking is better. Asked about testosterone results which are pending. Mental Status Exam Mental Status Exam Patient Appearance: Appropriate Patient Orientation: Person, Place, Time and Situation Level of Consciousness: Awake and Alert Patient Behavior: Cooperative (Much more so), Anxious, Distractible and Poor Eye Contact (But maybe improving) Mood Description: Calm ( Says better ) Affect Description: Constricted (But less so) Patient Cognition Impaired: No Ability to Follow Directions: Fair Speech Pattern: Spontaneous Speech Memory Description: Episodic Impaired Hallucinations: Auditory (it appears) Delusions: Present Thought Process: Distracted, Rumination and Goal Oriented Thought Content: positive for [place], positive for Circum[place], positive for Perseveration, positive for Preoccupation, positive for Thought Blocking and positive for Suicidal Ideation (denies) Depressive Symptoms: Diff. Making Decisions, Thoughts of /Suicide (denies) and Low Self Esteem Judgement and Insight: Impaired; maybe improving Diagnostics Vital Signs (24Hr): Vital Signs - 24 hr 08/10/24 20:00 08/11/24 08:00 Temperature 98.3 F 98.4 F Pulse Rate 71 92 Respiratory Rate 16 20 Blood Pressure 113/61 144/79 H Pulse Oximetry 96 98 Oxygen Delivery Method Room Air Room Air BMI result Body Mass Index 36.3 Labs 08/06/24 19:34 08/06/24 19:34 Imaging Radiology Impressions: ITS Impressions Chest CTA 07/29/24 18:08 IMPRESSION: There are no filling defects within the main pulmonary artery, right or left pulmonary arteries, or lobar pulmonary arteries to indicate an acute pulmonary embolism. Evaluation of the segmental and subsegmental arteries is somewhat limited secondary to mixing artifact. The lungs are clear. VTE: Negative. Fleischner guidelines were followed. Electronically signed by: Yoni Garcias DO 07/29/2024 06:44 PM EST RP KUB X-Ray 08/09/24 14:55 IMPRESSION: Moderate amount of stool throughout the colon. Electronically signed by: Gabriella Sandoval MD 08/10/2024 08:35 PM EST RP Medications Medications Current Medications Acetaminophen (Acetaminophen 325 Mg Tablet) 650 mg PO Q6H PRN PRN Reason: Headache/Pain Mild Scale (1-3) Last Admin: 08/08/24 08:36 Dose: 650 mg Al Hydroxide/Mg Hydroxide (Magnesium Hydrox/Alum Hydrox 30 Ml Oral.Susp) 30 ml PO Q6H PRN PRN Reason: Heartburn/Nausea Last Admin: 08/10/24 17:52 Dose: 30 ml Amlodipine Besylate (Amlodipine Besylate 10 Mg Tablet) 10 mg PO DAILY BRIAN; Protocol Last Admin: 08/11/24 08:50 Dose: 10 mg Aripiprazole (Aripiprazole 5 Mg Tablet) 5 mg PO BEDTIME BRIAN Last Admin: 08/10/24 21:24 Dose: 5 mg Chlorpromazine HCl (Chlorpromazine Hcl 25 Mg Tablet) 25 mg PO Q6H PRN PRN Reason: psychosis Last Admin: 08/07/24 05:44 Dose: 25 mg Hydroxyzine HCl (Hydroxyzine Hcl 25 Mg Tablet) 25 mg PO Q6H PRN PRN Reason: Anxiety Last Admin: 08/07/24 00:14 Dose: 25 mg Ibuprofen (Ibuprofen 800 Mg Tablet) 800 mg PO Q8H PRN PRN Reason: Migraine Headache Last Admin: 08/11/24 08:53 Dose: 800 mg Lorazepam (Lorazepam 1 Mg Tablet) 1 mg PO TID BRIAN Last Admin: 08/11/24 08:50 Dose: 1 mg Losartan Potassium (Losartan Potassium 25 Mg Tablet) 25 mg PO DAILY BRIAN; Protocol Last Admin: 08/11/24 08:50 Dose: 25 mg Magnesium Hydroxide (Milk Of Magnesia 30 Ml Oral.Susp) 30 ml PO DAILY PRN PRN Reason: Constipation Last Admin: 07/31/24 09:07 Dose: 30 ml Mirtazapine (Mirtazapine 15 Mg Tablet) 15 mg PO BEDTIME BRIAN Last Admin: 08/10/24 21:24 Dose: 15 mg Nicotine Polacrilex (Nicotine Polacrilex 2 Mg Gum) 4 mg BUCCAL Q2H PRN PRN Reason: Nicotine Cravings Trazodone HCl (Trazodone Hcl 50 Mg Tablet) 50 mg PO BEDTIME MRX1 PRN PRN Reason: Insomnia Allergies Allergies Allergy/AdvReac Type Severity Reaction Status Date / Time Penicillins Allergy Fever Verified 07/29/24 15:32 olanzapine AdvReac Severe other Verified 08/03/24 17:10 Assessment & Plan Assessment & Plan (1) MDD (major depressive disorder), recurrent severe, without psychosis: Status: Acute Code(s): F33.2 - Major depressive disorder, recurrent severe without psychotic features (2) Anxiety: Status: Acute Code(s): F41.9 - Anxiety disorder, unspecified Plan Depression, Anxiety, Mood dysregulation. 08/01: Lorazepam 0.5 mg tid (hx of catatonia) 08/02: Continue current management and treatment plan. Monitor response to restarting medications. 08/03: Increase Risperdal to 2 mg bid Increase Remeron to 15 mg HS 08/04: Continue current management and treatment plan. 08/05: If orthostasis continues consider lowering Risperdal or switching. 08/06: DC Risperdal Chlorpromazine 25 mg q6hprn psychosis Testosterone level 08/07 Weekend patient lowered himself to the ground, saying he was dizzy, wanted to go to the ER; rapid response called and decision was to treat him place. Same event happened again this morning at 05:00. Patient discussed and it sounds like it was more of an anxiety attack than anything else. He denies AH; denies SI. He says that he does have confused thoughts and it has been difficult for him to decide what he should do in a given moment. Try to discuss this further but patient kept saying I have cognitive decline.. And could not seem to elaborate. He said his coping skill was to just go to sleep. Broach the topic where patient broke his I phone and other things in his household because he thought some text were implying that he is [place]. Patient again could not elaborate. He remains quiet, keeping himself, intermittently not eating -patient retracted 3 day -patient has history of catatonia and current presentation is reminiscent of past catatonic symptoms. Will hold off on restarting Risperdal at this time and instead increase Ativan to 1 mg t.i.d. (not concerned about earlier reports of being dizzy, when patient lowered himself to the ground as this seemed to be more related to anxiety and behavioral rather than organic). 08/10: No changes today, continue current regime/plan. 08/11 seems to be doing a little better, more present, says he is feeling better; continue current regimen; discussed whether not to increase dose but patient would like to leave it where it is to which underwriter solicitation director agreed Plan: CV, 15 minute checks Increase Ativan to 1 mg t.i.d. for catatonic like symptoms Encourage full milieu Collateral contacts Diagnostics as needed Psychopharmacology evaluation Discharge planning. Patient educated on: diagnosis, medication risk/benefits and medical condition Informed Consent: understands and further education needed Reason for continued inpatient stay Substantial Risk for: rapid decompensation Time Spent With Patient Time: Total time managing care of this patient today ____ minutes.
[2024-08-11] MEDS: Magnesium Hydrox/Alum Hydrox 30 ML ORAL.SUSP PO (16:14)
[2024-08-11] MEDS: guaiFENesin LA 600 MG TAB.ER.12H PO (17:13)
[2024-08-11 20:00] VITALS: BP 131/95; PULSE 100; RESP 16; O2SAT 98
[2024-08-11] MEDS: Mirtazapine 15 MG TABLET PO (20:30)
[2024-08-11] MEDS: ARIPiprazole 5 MG TABLET PO (20:30)
[2024-08-12] MEDS: Magnesium Hydrox/Alum Hydrox 30 ML ORAL.SUSP PO (02:10)
[2024-08-12 08:00] VITALS: BP 142/85; PULSE 103; RESP 20; TEMP 36.4; O2SAT 98
[2024-08-12 08:28] VITALS: BP 141/85
[2024-08-12] MEDS: amLODIPine Besylate 10 MG TABLET PO (08:28)
[2024-08-12] MEDS: LORazepam 1 MG TABLET PO ×3 (08:28→20:55)
[2024-08-12] MEDS: Losartan Potassium 25 MG TABLET PO (08:28)
--- NOTE | 2024-08-12 10:43 | HO.PSYCHPN ---
Subjective Subjective Date of Service: 08/12/24 Reason For Visit: depression, anxiety Interim History: Met with patient; discussed with team Patient reports that his mood continues to be better and says that he is close to [his] Regular self. He says he still sleepy but thinks that is likely due to the Ativan. Discussed medication regimen and patient agrees to remain on Ativan for now but that it will eventually be tapered. Patient complains of GERD and agrees to start famotidine Mental Status Exam Mental Status Exam Patient Appearance: Appropriate Patient Orientation: Person, Place, Time and Situation Level of Consciousness: Awake and Alert Patient Behavior: Appropriate, Cooperative, Distractible and Good Eye Contact Mood Description: Calm ( better ) Affect Description: Withdrawn and Constricted (But less so) Patient Cognition Impaired: No Ability to Follow Directions: Fair Speech Pattern: Spontaneous Speech Memory Description: Episodic Impaired Hallucinations: Auditory (it appears) Delusions: Not Present (None expressed) Thought Process: Distracted and Goal Oriented Thought Content: positive for [place], positive for Preoccupation (Seems to be some) and positive for Suicidal Ideation (denies) Depressive Symptoms: Diff. Making Decisions, Thoughts of /Suicide (denies) and Low Self Esteem Judgement and Insight: Impaired but seems to be improving Diagnostics Vital Signs (24Hr): Vital Signs - 24 hr 08/11/24 20:00 08/12/24 08:00 08/12/24 08:28 Temperature 97.6 F Pulse Rate 100 103 H Respiratory Rate 16 20 Blood Pressure 131/95 H 142/85 H 141/85 H Pulse Oximetry 98 98 Oxygen Delivery Method Room Air Room Air BMI result Body Mass Index 36.3 Labs 08/06/24 19:34 08/06/24 19:34 Imaging Radiology Impressions: ITS Impressions Chest CTA 07/29/24 18:08 IMPRESSION: There are no filling defects within the main pulmonary artery, right or left pulmonary arteries, or lobar pulmonary arteries to indicate an acute pulmonary embolism. Evaluation of the segmental and subsegmental arteries is somewhat limited secondary to mixing artifact. The lungs are clear. VTE: Negative. Fleischner guidelines were followed. Electronically signed by: Yoni Garcias DO 07/29/2024 06:44 PM [facility] [place] [facility] [place] 08/09/24 14:55 IMPRESSION: Moderate amount of stool throughout the colon. Electronically signed by: Gabriella Sandoval MD 08/10/2024 08:35 PM [facility] [place] Medications Current Medications Acetaminophen (Acetaminophen 325 Mg Tablet) 650 mg PO Q6H PRN PRN Reason: Headache/Pain Mild Scale (1-3) Last Admin: 08/08/24 08:36 Dose: 650 mg Al Hydroxide/Mg Hydroxide (Magnesium Hydrox/Alum Hydrox 30 Ml Oral.Susp) 30 ml PO Q6H PRN PRN Reason: Heartburn/Nausea Last Admin: 08/12/24 02:10 Dose: 30 ml Amlodipine Besylate (Amlodipine Besylate 10 Mg Tablet) 10 mg PO DAILY BRIAN; Protocol Last Admin: 08/12/24 08:28 Dose: 10 mg Aripiprazole (Aripiprazole 5 Mg Tablet) 5 mg PO BEDTIME BRIAN Last Admin: 08/11/24 20:30 Dose: 5 mg Chlorpromazine HCl (Chlorpromazine Hcl 25 Mg Tablet) 25 mg PO Q6H PRN PRN Reason: psychosis Last Admin: 08/07/24 05:44 Dose: 25 mg Guaifenesin (Guaifenesin La 600 Mg Tab.Er.12h) 600 mg PO BID PRN PRN Reason: Cough Last Admin: 08/11/24 17:13 Dose: 600 mg Hydroxyzine HCl (Hydroxyzine Hcl 25 Mg Tablet) 25 mg PO Q6H PRN PRN Reason: Anxiety Last Admin: 08/07/24 00:14 Dose: 25 mg Ibuprofen (Ibuprofen 800 Mg Tablet) 800 mg PO Q8H PRN PRN Reason: Migraine Headache Last Admin: 08/11/24 08:53 Dose: 800 mg Lorazepam (Lorazepam 1 Mg Tablet) 1 mg PO TID BRIAN Last Admin: 08/12/24 08:28 Dose: 1 mg Losartan Potassium (Losartan Potassium 25 Mg Tablet) 25 mg PO DAILY BRIAN; Protocol Last Admin: 08/12/24 08:28 Dose: 25 mg Magnesium Hydroxide (Milk Of Magnesia 30 Ml Oral.Susp) 30 ml PO DAILY PRN PRN Reason: Constipation Last Admin: 07/31/24 09:07 Dose: 30 ml Mirtazapine (Mirtazapine 15 Mg Tablet) 15 mg PO BEDTIME BRIAN Last Admin: 08/11/24 20:30 Dose: 15 mg Nicotine Polacrilex (Nicotine Polacrilex 2 Mg Gum) 4 mg BUCCAL Q2H PRN PRN Reason: Nicotine Cravings Trazodone HCl (Trazodone Hcl 50 Mg Tablet) 50 mg PO BEDTIME MRX1 PRN PRN Reason: Insomnia Allergies Allergies Allergy/AdvReac Type Severity Reaction Status Date / Time Penicillins Allergy Fever Verified 07/29/24 15:32 olanzapine AdvReac Severe other Verified 08/03/24 17:10 Assessment & Plan Assessment & Plan (1) MDD (major depressive disorder), recurrent severe, without psychosis: Status: Acute Code(s): F33.2 - Major depressive disorder, recurrent severe without psychotic features (2) Anxiety: Status: Acute Code(s): F41.9 - Anxiety disorder, unspecified Plan Depression, Anxiety, Mood dysregulation. 08/01: Lorazepam 0.5 mg tid (hx of catatonia) 08/02: Continue current management and treatment plan. Monitor response to restarting medications. 08/03: Increase Risperdal to 2 mg bid Increase Remeron to 15 mg HS 08/04: Continue current management and treatment plan. 08/05: If orthostasis continues consider lowering Risperdal or switching. 08/06: DC Risperdal Chlorpromazine 25 mg q6hprn psychosis Testosterone level 08/07 Weekend patient lowered himself to the ground, saying he was dizzy, wanted to go to the ER; rapid response called and decision was to treat him place. Same event happened again this morning at 05:00. Patient discussed and it sounds like it was more of an anxiety attack than anything else. He denies AH; denies SI. He says that he does have confused thoughts and it has been difficult for him to decide what he should do in a given moment. Try to discuss this further but patient kept saying I have cognitive decline.. And could not seem to elaborate. He said his coping skill was to just go to sleep. Broach the topic where patient broke his I phone and other things in his household because he thought some text were implying that he is [place]. Patient again could not elaborate. He remains quiet, keeping himself, intermittently not eating -patient retracted 3 day -patient has history of catatonia and current presentation is reminiscent of past catatonic symptoms. Will hold off on restarting Risperdal at this time and instead increase Ativan to 1 mg t.i.d. (not concerned about earlier reports of being dizzy, when patient lowered himself to the ground as this seemed to be more related to anxiety and behavioral rather than organic). 08/10: No changes today, continue current regime/plan. 08/11 seems to be doing a little better, more present, says he is feeling better; continue current regimen; discussed whether not to increase dose but patient would like to leave it where it is to which headline writer agreed 08/12 patient continues to do better, more present and conversation and says he is feeling like he is getting back to his regular self. Has not expressed any delusional thinking though headline writer did not inquire. -continue Ativan 1 mg t.i.d. for now to ensure patient is not return to catatonic symptoms; will eventually taper Plan: CV, 15 minute checks Continue Ativan to 1 mg t.i.d.; catatonia seems to be resolved however recommend continuing Ativan so does not return; patient may even be discharged on Ativan with a built-in taper -started famotidine for GERD Encourage full milieu Collateral contacts Diagnostics as needed Psychopharmacology evaluation Discharge planning. Patient educated on: diagnosis, medication risk/benefits and medical condition Informed Consent: understands and further education needed Reason for continued inpatient stay Substantial Risk for: stable for discharge and rapid decompensation Time Spent With Patient Time: Total time managing care of this patient today ____ minutes.
[2024-08-12] MEDS: Famotidine 20 MG TABLET PO (12:10)
[2024-08-12] MEDS: guaiFENesin LA 600 MG TAB.ER.12H PO (16:31)
[2024-08-12 19:38] VITALS: BP 122/66; PULSE 88; TEMP 37.2; O2SAT 96
[2024-08-12] MEDS: ARIPiprazole 5 MG TABLET PO (20:55)
[2024-08-12] MEDS: Mirtazapine 15 MG TABLET PO (20:55)
[2024-08-13 08:00] VITALS: BP 116/84; PULSE 86; RESP 16; TEMP 36.8; O2SAT 96
[2024-08-13 08:41] VITALS: BP 116/84
[2024-08-13] MEDS: amLODIPine Besylate 10 MG TABLET PO (08:41)
[2024-08-13] MEDS: Famotidine 20 MG TABLET PO (08:43)
[2024-08-13] MEDS: Losartan Potassium 25 MG TABLET PO (08:43)
[2024-08-13] MEDS: LORazepam 1 MG TABLET PO (08:43)
[2024-08-13] MEDS: Ibuprofen 800 MG TABLET PO ×2 (09:04→20:56)
--- NOTE | 2024-08-13 09:42 | P.PNPSI_ITS ---
Subjective Subjective Date of Service: 08/13/24 Reason For Visit: depression, anxiety Subjective Notes: Conditional Voluntary Healthcare Proxy: No Guardianship: No Medical Problems Affecting Mental Status: Yes (URI sx.) Interim History: Jabari reports feeling improved. He appears to be more grounded, thought process is clearer. He denies med SE, but does report sedation-unsure if it is URI sx or meds. We discussed initial concerns for catatonia and since he has improved, we will begin with a Lorazepam taper 3 mg daily to 1.5 mg daily, divided tid. He concurs. We discussed possible return to catatonic sx and possibly needing to retitrate Lorazepam. He is in agreement that we should attempt a taper. Medication Compliance: Yes Side effects from medications: No Attending Groups: Yes Review of Systems Review of Systems URI sx Mental Status Exam Mental Status Exam Patient Appearance: Appropriate Patient Orientation: Person, Place, Time and Situation Level of Consciousness: Alert Patient Behavior: Talkative and Good Eye Contact Mood Description: Apprehensive Affect Description: Apprehensive Patient Cognition Impaired: No Ability to Follow Directions: Good Speech Pattern: Spontaneous Speech Memory Description: Episodic Impaired Hallucinations: None Delusions: Present (decreased) Thought Process: Distracted Thought Content: positive for Perseveration and positive for Preoccupation Depressive Symptoms: Increased Fatigue and Thoughts of /Suicide (denies) Judgement: Fair Diagnostics Vital Signs (24Hr): Vital Signs - 24 hr 08/12/24 19:38 08/13/24 08:00 08/13/24 08:41 Temperature 98.9 F 98.3 F Pulse Rate 88 86 Respiratory Rate 16 Blood Pressure 122/66 116/84 116/84 Pulse Oximetry 96 96 Oxygen Delivery Method Room Air Room Air BMI result Body Mass Index 36.3 Labs 08/06/24 19:34 08/06/24 19:34 Imaging Radiology Impressions: ITS Impressions Chest CTA 07/29/24 18:08 IMPRESSION: There are no filling defects within the main pulmonary artery, right or left pulmonary arteries, or lobar pulmonary arteries to indicate an acute pulmonary embolism. Evaluation of the segmental and subsegmental arteries is somewhat limited secondary to mixing artifact. The lungs are clear. VTE: Negative. Fleischner guidelines were followed. Electronically signed by: Yoni Garcias DO 07/29/2024 06:44 PM EST [facility] X-Ray 08/09/24 14:55 IMPRESSION: Moderate amount of stool throughout the colon. Electronically signed by: Gabriella Sandoval MD 08/10/2024 08:35 PM EST [facility] Medications Medications Current Medications Acetaminophen (Acetaminophen 325 Mg Tablet) 650 mg PO Q6H PRN PRN Reason: Headache/Pain Mild Scale (1-3) Last Admin: 08/08/24 08:36 Dose: 650 mg Al Hydroxide/Mg Hydroxide (Magnesium Hydrox/Alum Hydrox 30 Ml Oral.Susp) 30 ml PO Q6H PRN PRN Reason: Heartburn/Nausea Last Admin: 08/12/24 02:10 Dose: 30 ml Amlodipine Besylate (Amlodipine Besylate 10 Mg Tablet) 10 mg PO DAILY BRIAN; Protocol Last Admin: 08/13/24 08:41 Dose: 10 mg Aripiprazole (Aripiprazole 5 Mg Tablet) 5 mg PO BEDTIME BRIAN Last Admin: 08/12/24 20:55 Dose: 5 mg Benzocaine (Throat Lozenge, Medicated Lozenge) 1 lozenge MUCOUS MEM Q2H PRN PRN Reason: Sore Throat Chlorpromazine HCl (Chlorpromazine Hcl 25 Mg Tablet) 25 mg PO Q6H PRN PRN Reason: psychosis Last Admin: 08/07/24 05:44 Dose: 25 mg Famotidine (Famotidine 20 Mg Tablet) 20 mg PO DAILY BRIAN Last Admin: 08/13/24 08:43 Dose: 20 mg Hydroxyzine HCl (Hydroxyzine Hcl 25 Mg Tablet) 25 mg PO Q6H PRN PRN Reason: Anxiety Last Admin: 08/07/24 00:14 Dose: 25 mg Ibuprofen (Ibuprofen 800 Mg Tablet) 800 mg PO Q8H PRN PRN Reason: Migraine Headache Last Admin: 08/13/24 09:04 Dose: 800 mg Lorazepam (Lorazepam 1 Mg Tablet) 1 mg PO TID BRIAN Last Admin: 08/13/24 08:43 Dose: 1 mg Losartan Potassium (Losartan Potassium 25 Mg Tablet) 25 mg PO DAILY BRINA; Protocol Last Admin: 08/13/24 08:43 Dose: 25 mg Magnesium Hydroxide (Milk Of Magnesia 30 Ml Oral.Susp) 30 ml PO DAILY PRN PRN Reason: Constipation Last Admin: 07/31/24 09:07 Dose: 30 ml Mirtazapine (Mirtazapine 15 Mg Tablet) 15 mg PO BEDTIME BRIAN Last Admin: 08/12/24 20:55 Dose: 15 mg Nicotine Polacrilex (Nicotine Polacrilex 2 Mg Gum) 4 mg BUCCAL Q2H PRN PRN Reason: Nicotine Cravings Pseudoephedrine HCl (Pseudoephedrine Hcl 30 Mg Tablet) 30 mg PO Q6H PRN PRN Reason: nasal congestion Trazodone HCl (Trazodone Hcl 50 Mg Tablet) 50 mg PO BEDTIME MRX1 PRN PRN Reason: Insomnia Allergies Allergies Allergy/AdvReac Type Severity Reaction Status Date / Time Penicillins Allergy Fever Verified 07/29/24 15:32 olanzapine AdvReac Severe other Verified 08/03/24 17:10 Assessment & Plan Assessment & Plan (1) MDD (major depressive disorder), recurrent severe, without psychosis: Status: Acute Code(s): F33.2 - Major depressive disorder, recurrent severe without psychotic features (2) Anxiety: Status: Acute Code(s): F41.9 - Anxiety disorder, unspecified Plan Depression, Anxiety, Mood dysregulation. 08/01: Lorazepam 0.5 mg tid (hx of catatonia) 08/02: Continue current management and treatment plan. Monitor response to restarting medications. 08/03: Increase Risperdal to 2 mg bid Increase Remeron to 15 mg HS 08/04: Continue current management and treatment plan. 08/05: If orthostasis continues consider lowering Risperdal or switching. 08/06: DC Risperdal Chlorpromazine 25 mg q6hprn psychosis Testosterone level 08/07 Weekend patient lowered himself to the ground, saying he was dizzy, wanted to go to the ER; rapid response called and decision was to treat him place. Same event happened again this morning at 05:00. Patient discussed and it sounds like it was more of an anxiety attack than anything else. He denies AH; denies SI. He says that he does have confused thoughts and it has been difficult for him to decide what he should do in a given moment. Try to discuss this further but patient kept saying I have cognitive decline.. And could not seem to elaborate. He said his coping skill was to just go to sleep. Broach the topic where patient broke his I phone and other things in his household because he thought some text were implying that he is [place]. Patient again could not elaborate. He remains quiet, keeping himself, intermittently not eating -patient retracted 3 day -patient has history of catatonia and current presentation is reminiscent of past catatonic symptoms. Will hold off on restarting Risperdal at this time and instead increase Ativan to 1 mg t.i.d. (not concerned about earlier reports of being dizzy, when patient lowered himself to the ground as this seemed to be more related to anxiety and behavioral rather than organic). 08/10: No changes today, continue current regime/plan. 08/11 seems to be doing a little better, more present, says he is feeling better; continue current regimen; discussed whether not to increase dose but patient would like to leave it where it is to which insurance underwriter agreed 08/12 patient continues to do better, more present and conversation and says he is feeling like he is getting back to his regular self. Has not expressed any delusional thinking though insurance underwriter did not inquire. -continue Ativan 1 mg t.i.d. for now to ensure patient is not return to catatonic symptoms; will eventually taper 08/13: Decrease Lorazepam to 0.5 mg tid Plan: CV, 15 minute checks Continue Ativan to 1 mg t.i.d.; catatonia seems to be resolved however recommend continuing Ativan so does not return; patient may even be discharged on Ativan with a built-in taper -started famotidine for GERD Encourage full milieu Collateral contacts Diagnostics as needed Psychopharmacology evaluation Discharge planning. Reason for continued inpatient stay Substantial Risk for: rapid decompensation Time Spent With Patient Time: Total time managing care of this patient today ____ minutes.
[2024-08-13] MEDS: Lidocaine 4 % Patch ADH..PATCH 1 PATCH TRANSDERMA (12:57)
[2024-08-13] MEDS: LORazepam 0.5 MG TABLET PO ×2 (15:23→20:50)
[2024-08-13 19:59] VITALS: BP 134/95; PULSE 110; TEMP 36.7; O2SAT 96
[2024-08-13] MEDS: Mirtazapine 15 MG TABLET PO (20:50)
[2024-08-13] MEDS: ARIPiprazole 5 MG TABLET PO (20:50)
[2024-08-13] MEDS: Pseudoephedrine HCL 30 MG TABLET PO (20:57)
[2024-08-14 08:00] VITALS: BP 138/83; PULSE 100; RESP 16; TEMP 36.7; O2SAT 98
[2024-08-14] MEDS: Famotidine 20 MG TABLET PO (08:16)
[2024-08-14] MEDS: Losartan Potassium 25 MG TABLET PO (08:16)
[2024-08-14] MEDS: LORazepam 0.5 MG TABLET PO ×3 (08:16→20:29)
[2024-08-14] MEDS: amLODIPine Besylate 10 MG TABLET PO (08:16)
[2024-08-14] MEDS: Lidocaine 4 % Patch ADH..PATCH 1 PATCH TRANSDERMA (08:18)
[2024-08-14] MEDS: Pseudoephedrine HCL 30 MG TABLET PO (12:55)
[2024-08-14] MEDS: Ibuprofen 800 MG TABLET PO ×2 (12:55→20:30)
--- NOTE | 2024-08-14 15:35 | HO.PSYCHPN ---
Subjective Subjective Date of Service: 08/14/24 Reason For Visit: depression, anxiety Subjective Notes: Conditional Voluntary Healthcare Proxy: No Guardianship: No Medical Problems Affecting Mental Status: No Interim History: Pt reports feeling improved. He is engaged in discussion, has improved eye contact, initiates questions and dialogue. He is tolerating Lorazepam taper and states he is less sedate, but believes it was cold medicine that caused this not Lorazepam. He discussed needing an appt for an eye exam and a new prescription for glasses. We will contact [facility] prior to DC to see if we may secure an appt. Medication Compliance: Yes Side effects from medications: No Attending Groups: Yes Review of Systems Acute medical concerns: No Review of Systems Review of Systems URI sx Mental Status Exam Mental Status Exam Patient Appearance: Appropriate Patient Orientation: Person, Place, Time and Situation Level of Consciousness: Alert Patient Behavior: Talkative and Good Eye Contact Mood Description: Anxious and Apprehensive Affect Description: Anxious and Apprehensive Patient Cognition Impaired: No Ability to Follow Directions: Good Speech Pattern: Spontaneous Speech Memory Description: Episodic Impaired Hallucinations: None Delusions: Present (decreased) Thought Process: Distracted Thought Content: positive for Perseveration and positive for Preoccupation Depressive Symptoms: Increased Fatigue and Thoughts of /Suicide (denies) Judgement: Fair Diagnostics Vital Signs (24Hr): Vital Signs - 24 hr 08/13/24 19:59 08/14/24 08:00 Temperature 98.1 F 98.1 F Pulse Rate 110 H 100 Respiratory Rate 16 Blood Pressure 134/95 H 138/83 Pulse Oximetry 96 98 Oxygen Delivery Method Room Air Room Air BMI result Body Mass Index 36.3 Labs 08/06/24 19:34 08/06/24 19:34 Imaging Radiology Impressions: ITS Impressions Chest CTA 07/29/24 18:08 IMPRESSION: There are no filling defects within the main pulmonary artery, right or left pulmonary arteries, or lobar pulmonary arteries to indicate an acute pulmonary embolism. Evaluation of the segmental and subsegmental arteries is somewhat limited secondary to mixing artifact. The lungs are clear. VTE: Negative. Fleischner guidelines were followed. Electronically signed by: Yoni Garcias DO 07/29/2024 06:44 PM [facility] [place] [facility] X-Ray 08/09/24 14:55 IMPRESSION: Moderate amount of stool throughout the colon. Electronically signed by: Gabriella Sandoval MD 08/10/2024 08:35 PM [facility] - [place] Medications Medications Current Medications Acetaminophen (Acetaminophen 325 Mg Tablet) 650 mg PO Q6H PRN PRN Reason: Headache/Pain Mild Scale (1-3) Last Admin: 08/08/24 08:36 Dose: 650 mg Al Hydroxide/Mg Hydroxide (Magnesium Hydrox/Alum Hydrox 30 Ml Oral.Susp) 30 ml PO Q6H PRN PRN Reason: Heartburn/Nausea Last Admin: 08/12/24 02:10 Dose: 30 ml Amlodipine Besylate (Amlodipine Besylate 10 Mg Tablet) 10 mg PO DAILY BRIAN; Protocol Last Admin: 08/14/24 08:16 Dose: 10 mg Aripiprazole (Aripiprazole 5 Mg Tablet) 5 mg PO BEDTIME BRIAN Last Admin: 08/13/24 20:50 Dose: 5 mg Benzocaine (Throat Lozenge, Medicated Lozenge) 1 lozenge MUCOUS MEM Q2H PRN PRN Reason: Sore Throat Chlorpromazine HCl (Chlorpromazine Hcl 25 Mg Tablet) 25 mg PO Q6H PRN PRN Reason: psychosis Last Admin: 08/07/24 05:44 Dose: 25 mg Famotidine (Famotidine 20 Mg Tablet) 20 mg PO DAILY BRIAN Last Admin: 08/14/24 08:16 Dose: 20 mg Hydroxyzine HCl (Hydroxyzine Hcl 25 Mg Tablet) 25 mg PO Q6H PRN PRN Reason: Anxiety Last Admin: 08/07/24 00:14 Dose: 25 mg Ibuprofen (Ibuprofen 800 Mg Tablet) 800 mg PO Q8H PRN PRN Reason: Migraine Headache Last Admin: 08/14/24 12:55 Dose: 800 mg Lidocaine (Lidocaine 4 % Patch Adh..Patch) 1 patch TRANSDERMA DAILY BRIAN; Protocol Last Admin: 08/14/24 08:18 Dose: 1 patch Lorazepam (Lorazepam 0.5 Mg Tablet) 0.5 mg PO TID BRIAN Last Admin: 08/14/24 14:11 Dose: 0.5 mg Losartan Potassium (Losartan Potassium 25 Mg Tablet) 25 mg PO DAILY BRIAN; Protocol Last Admin: 08/14/24 08:16 Dose: 25 mg Magnesium Hydroxide (Milk Of Magnesia 30 Ml Oral.Susp) 30 ml PO DAILY PRN PRN Reason: Constipation Last Admin: 07/31/24 09:07 Dose: 30 ml Mirtazapine (Mirtazapine 15 Mg Tablet) 15 mg PO BEDTIME BRIAN Last Admin: 08/13/24 20:50 Dose: 15 mg Nicotine Polacrilex (Nicotine Polacrilex 2 Mg Gum) 4 mg BUCCAL Q2H PRN PRN Reason: Nicotine Cravings Pseudoephedrine HCl (Pseudoephedrine Hcl 30 Mg Tablet) 30 mg PO Q6H PRN PRN Reason: nasal congestion Last Admin: 08/14/24 12:55 Dose: 30 mg Trazodone HCl (Trazodone Hcl 50 Mg Tablet) 50 mg PO BEDTIME MRX1 PRN PRN Reason: Insomnia Allergies Allergies Allergy/AdvReac Type Severity Reaction Status Date / Time Penicillins Allergy Fever Verified 07/29/24 15:32 olanzapine AdvReac Severe other Verified 08/03/24 17:10 Assessment & Plan Assessment & Plan (1) MDD (major depressive disorder), recurrent severe, without psychosis: Status: Acute Code(s): F33.2 - Major depressive disorder, recurrent severe without psychotic features (2) Anxiety: Status: Acute Code(s): F41.9 - Anxiety disorder, unspecified Plan Depression, Anxiety, Mood dysregulation. 08/01: Lorazepam 0.5 mg tid (hx of catatonia) 08/02: Continue current management and treatment plan. Monitor response to restarting medications. 08/03: Increase Risperdal to 2 mg bid Increase Remeron to 15 mg HS 08/04: Continue current management and treatment plan. 08/05: If orthostasis continues consider lowering Risperdal or switching. 08/06: DC Risperdal Chlorpromazine 25 mg q6hprn psychosis Testosterone level 08/07 Weekend patient lowered himself to the ground, saying he was dizzy, wanted to go to the ER; rapid response called and decision was to treat him place. Same event happened again this morning at 05:00. Patient discussed and it sounds like it was more of an anxiety attack than anything else. He denies AH; denies SI. He says that he does have confused thoughts and it has been difficult for him to decide what he should do in a given moment. Try to discuss this further but patient kept saying I have cognitive decline.. And could not seem to elaborate. He said his coping skill was to just go to sleep. Broach the topic where patient broke his I phone and other things in his household because he thought some text were implying that he is [place]. Patient again could not elaborate. He remains quiet, keeping himself, intermittently not eating -patient retracted 3 day -patient has history of catatonia and current presentation is reminiscent of past catatonic symptoms. Will hold off on restarting Risperdal at this time and instead increase Ativan to 1 mg t.i.d. (not concerned about earlier reports of being dizzy, when patient lowered himself to the ground as this seemed to be more related to anxiety and behavioral rather than organic). 08/10: No changes today, continue current regime/plan. 08/11 seems to be doing a little better, more present, says he is feeling better; continue current regimen; discussed whether not to increase dose but patient would like to leave it where it is to which speech writer agreed 08/12 patient continues to do better, more present and conversation and says he is feeling like he is getting back to his regular self. Has not expressed any delusional thinking though speech writer did not inquire. -continue Ativan 1 mg t.i.d. for now to ensure patient is not return to catatonic symptoms; will eventually taper 08/14: Tolerating Ativan taper. Increased participation in milieu. Plan: CV, 15 minute checks Continue Ativan to 1 mg t.i.d.; catatonia seems to be resolved however recommend continuing Ativan so does not return; patient may even be discharged on Ativan with a built-in taper -started famotidine for GERD Encourage full milieu Collateral contacts Diagnostics as needed Psychopharmacology evaluation Discharge planning. Reason for continued inpatient stay Substantial Risk for: rapid decompensation Time Spent With Patient Time: Total time managing care of this patient today ____ minutes.
[2024-08-14 17:12] LABS: Testosterone, Free 68.5 pg/mL (35.0-155.0); Testosterone, Total 403 ng/dL (250-1100)
[2024-08-14 20:00] VITALS: BP 127/62; PULSE 74; TEMP 36.6; O2SAT 98
[2024-08-14] MEDS: ARIPiprazole 5 MG TABLET PO (20:29)
[2024-08-14] MEDS: Mirtazapine 15 MG TABLET PO (20:29)
[2024-08-14] MEDS: Magnesium Hydrox/Alum Hydrox 30 ML ORAL.SUSP PO (20:33)
[2024-08-15 08:00] VITALS: BP 128/79; PULSE 83; RESP 18; TEMP 36.9; O2SAT 97
[2024-08-15] MEDS: Losartan Potassium 25 MG TABLET PO (08:27)
[2024-08-15] MEDS: Famotidine 20 MG TABLET PO (08:27)
[2024-08-15] MEDS: amLODIPine Besylate 10 MG TABLET PO (08:27)
[2024-08-15] MEDS: LORazepam 0.5 MG TABLET PO ×2 (08:27→20:23)
[2024-08-15] MEDS: Pseudoephedrine HCL 30 MG TABLET PO (08:28)
[2024-08-15] MEDS: Lidocaine 4 % Patch ADH..PATCH 1 PATCH TRANSDERMA (08:52)
--- NOTE | 2024-08-15 11:09 | HO.PSYCHPN ---
Subjective Subjective Date of Service: 08/15/24 Reason For Visit: depression, anxiety Subjective Notes: Conditional Voluntary Healthcare Proxy: No Guardianship: No Medical Problems Affecting Mental Status: No Interim History: Jabari reports he is feeling improved. He is visable in milieu, attending all groups and participating-reports he is enjoying the time in group with others. He is preparing for discharge on 08/17. He reports no adverse effects from Lorazepam decrease/taper and his mental status is supportive of no decline since this was initiated. Medication Compliance: Yes Side effects from medications: No Attending Groups: Yes Review of Systems Acute medical concerns: No Review of Systems Review of Systems Denies Mental Status Exam Mental Status Exam Patient Appearance: Appropriate Patient Orientation: Person, Place, Time and Situation Level of Consciousness: Alert Patient Behavior: Talkative and Good Eye Contact Mood Description: Appropriate Affect Description: Appropriate Patient Cognition Impaired: No Ability to Follow Directions: Good Speech Pattern: Spontaneous Speech Memory Description: Episodic Impaired Hallucinations: None Delusions: Not Present Thought Process: Intact Thought Content: positive for Intact Depressive Symptoms: Thoughts of /Suicide (denies) Judgement: Good Diagnostics Vital Signs (24Hr): Vital Signs - 24 hr 08/14/24 20:00 08/15/24 08:00 Temperature 97.8 F 98.4 F Pulse Rate 74 83 Respiratory Rate 18 Blood Pressure 127/62 128/79 Pulse Oximetry 98 97 Oxygen Delivery Method Room Air Room Air BMI result Body Mass Index 36.3 Labs 08/06/24 19:34 08/06/24 19:34 Labs: Laboratory Results - last 48 hr 08/09/24 08:23 Total Testosterone 403 Fr Testosterone Dialys 68.5 Imaging Radiology Impressions: ITS Impressions Chest CTA 07/29/24 18:08 IMPRESSION: There are no filling defects within the main pulmonary artery, right or left pulmonary arteries, or lobar pulmonary arteries to indicate an acute pulmonary embolism. Evaluation of the segmental and subsegmental arteries is somewhat limited secondary to mixing artifact. The lungs are clear. VTE: Negative. Fleischner guidelines were followed. Electronically signed by: Yoni Garcias DO 07/29/2024 06:44 PM EST RP KUB X-Ray 08/09/24 14:55 IMPRESSION: Moderate amount of stool throughout the colon. Electronically signed by: Gabriella Sandoval MD 08/10/2024 08:35 PM EST RP Medications Medications Current Medications Acetaminophen (Acetaminophen 325 Mg Tablet) 650 mg PO Q6H PRN PRN Reason: Headache/Pain Mild Scale (1-3) Last Admin: 08/08/24 08:36 Dose: 650 mg Al Hydroxide/Mg Hydroxide (Magnesium Hydrox/Alum Hydrox 30 Ml Oral.Susp) 30 ml PO Q6H PRN PRN Reason: Heartburn/Nausea Last Admin: 08/14/24 20:33 Dose: 30 ml Amlodipine Besylate (Amlodipine Besylate 10 Mg Tablet) 10 mg PO DAILY BRIAN; Protocol Last Admin: 08/15/24 08:27 Dose: 10 mg Aripiprazole (Aripiprazole 5 Mg Tablet) 5 mg PO BEDTIME BRIAN Last Admin: 08/14/24 20:29 Dose: 5 mg Benzocaine (Throat Lozenge, Medicated Lozenge) 1 lozenge MUCOUS MEM Q2H PRN PRN Reason: Sore Throat Chlorpromazine HCl (Chlorpromazine Hcl 25 Mg Tablet) 25 mg PO Q6H PRN PRN Reason: psychosis Last Admin: 08/07/24 05:44 Dose: 25 mg Famotidine (Famotidine 20 Mg Tablet) 20 mg PO DAILY BRIAN Last Admin: 08/15/24 08:27 Dose: 20 mg Hydroxyzine HCl (Hydroxyzine Hcl 25 Mg Tablet) 25 mg PO Q6H PRN PRN Reason: Anxiety Last Admin: 08/07/24 00:14 Dose: 25 mg Ibuprofen (Ibuprofen 800 Mg Tablet) 800 mg PO Q8H PRN PRN Reason: Migraine Headache Last Admin: 08/14/24 20:30 Dose: 800 mg Lidocaine (Lidocaine 4 % Patch Adh..Patch) 1 patch TRANSDERMA DAILY BRIAN; Protocol Last Admin: 08/15/24 08:52 Dose: 1 patch Lorazepam (Lorazepam 0.5 Mg Tablet) 0.5 mg PO TID BRIAN Last Admin: 08/15/24 08:27 Dose: 0.5 mg Losartan Potassium (Losartan Potassium 25 Mg Tablet) 25 mg PO DAILY BRIAN; Protocol Last Admin: 08/15/24 08:27 Dose: 25 mg Magnesium Hydroxide (Milk Of Magnesia 30 Ml Oral.Susp) 30 ml PO DAILY PRN PRN Reason: Constipation Last Admin: 07/31/24 09:07 Dose: 30 ml Mirtazapine (Mirtazapine 15 Mg Tablet) 15 mg PO BEDTIME BRIAN Last Admin: 08/14/24 20:29 Dose: 15 mg Nicotine Polacrilex (Nicotine Polacrilex 2 Mg Gum) 4 mg BUCCAL Q2H PRN PRN Reason: Nicotine Cravings Pseudoephedrine HCl (Pseudoephedrine Hcl 30 Mg Tablet) 30 mg PO Q6H PRN PRN Reason: nasal congestion Last Admin: 08/15/24 08:28 Dose: 30 mg Trazodone HCl (Trazodone Hcl 50 Mg Tablet) 50 mg PO BEDTIME MRX1 PRN PRN Reason: Insomnia Allergies Allergies Allergy/AdvReac Type Severity Reaction Status Date / Time Penicillins Allergy Fever Verified 07/29/24 15:32 olanzapine AdvReac Severe other Verified 08/03/24 17:10 Assessment & Plan Assessment & Plan (1) MDD (major depressive disorder), recurrent severe, without psychosis: Status: Acute Code(s): F33.2 - Major depressive disorder, recurrent severe without psychotic features (2) Anxiety: Status: Acute Code(s): F41.9 - Anxiety disorder, unspecified Plan Depression, Anxiety, Mood dysregulation. 08/01: Lorazepam 0.5 mg tid (hx of catatonia) 08/02: Continue current management and treatment plan. Monitor response to restarting medications. 08/03: Increase Risperdal to 2 mg bid Increase Remeron to 15 mg HS 08/04: Continue current management and treatment plan. 08/05: If orthostasis continues consider lowering Risperdal or switching. 08/06: DC Risperdal Chlorpromazine 25 mg q6hprn psychosis Testosterone level 08/07 Weekend patient lowered himself to the ground, saying he was dizzy, wanted to go to the ER; rapid response called and decision was to treat him place. Same event happened again this morning at 05:00. Patient discussed and it sounds like it was more of an anxiety attack than anything else. He denies AH; denies SI. He says that he does have confused thoughts and it has been difficult for him to decide what he should do in a given moment. Try to discuss this further but patient kept saying I have cognitive decline.. And could not seem to elaborate. He said his coping skill was to just go to sleep. Broach the topic where patient broke his I phone and other things in his household because he thought some text were implying that he is [place]. Patient again could not elaborate. He remains quiet, keeping himself, intermittently not eating -patient retracted 3 day -patient has history of catatonia and current presentation is reminiscent of past catatonic symptoms. Will hold off on restarting Risperdal at this time and instead increase Ativan to 1 mg t.i.d. (not concerned about earlier reports of being dizzy, when patient lowered himself to the ground as this seemed to be more related to anxiety and behavioral rather than organic). 08/10: No changes today, continue current regime/plan. 08/11 seems to be doing a little better, more present, says he is feeling better; continue current regimen; discussed whether not to increase dose but patient would like to leave it where it is to which technical document writer agreed 08/12 patient continues to do better, more present and conversation and says he is feeling like he is getting back to his regular self. Has not expressed any delusional thinking though technical document writer did not inquire. -continue Ativan 1 mg t.i.d. for now to ensure patient is not return to catatonic symptoms; will eventually taper 08/15- Continue regime. Discharge 08/17. Plan: CV, 15 minute checks Continue Ativan to 1 mg t.i.d.; catatonia seems to be resolved however recommend continuing Ativan so does not return; patient may even be discharged on Ativan with a built-in taper -started famotidine for GERD Encourage full milieu Collateral contacts Diagnostics as needed Psychopharmacology evaluation Discharge planning. Reason for continued inpatient stay Substantial Risk for: rapid decompensation Time Spent With Patient Time: Total time managing care of this patient today ____ minutes.
[2024-08-15 12:38] LABS: Influenza A PCR NEGATIVE (Negative); Influenza B PCR NEGATIVE (Negative); Resp Syncy Virus RNA Qual PCR NEGATIVE (Negative); SARS COV2 PCR INHOUSE NEGATIVE (Negative)
[2024-08-15 20:00] VITALS: BP 138/82; PULSE 106; TEMP 37.4; O2SAT 94
[2024-08-15] MEDS: ARIPiprazole 5 MG TABLET PO (20:23)
[2024-08-15] MEDS: Mirtazapine 15 MG TABLET PO (20:23)
[2024-08-15] MEDS: Acetaminophen 325 MG TABLET 650 MG PO (20:25)
[2024-08-15] MEDS: Magnesium Hydrox/Alum Hydrox 30 ML ORAL.SUSP PO (20:52)
[2024-08-16 07:00] VITALS: BMI 37.9
[2024-08-16 08:00] VITALS: BP 140/81; PULSE 87; RESP 16; TEMP 36.6; O2SAT 98
[2024-08-16] MEDS: Losartan Potassium 25 MG TABLET PO (08:27)
[2024-08-16] MEDS: Famotidine 20 MG TABLET PO (08:27)
[2024-08-16] MEDS: amLODIPine Besylate 10 MG TABLET PO (08:27)
[2024-08-16] MEDS: LORazepam 0.5 MG TABLET PO ×3 (08:27→22:16)
[2024-08-16] MEDS: Lidocaine 4 % Patch ADH..PATCH 1 PATCH TRANSDERMA (08:54)
[2024-08-16] MEDS: Ibuprofen 800 MG TABLET PO (11:03)
--- NOTE | 2024-08-16 16:16 | HO.PSYCHPN ---
Subjective Subjective Date of Service: 08/16/24 Reason For Visit: depression, anxiety Subjective Notes: Conditional Voluntary Healthcare Proxy: No Guardianship: No Medical Problems Affecting Mental Status: No Interim History: Active, engaged in groups and with peers. Reports he is tolerating decrease in Lorazepam well No adverse effects. He is prepared for discharge and discussed the importance of ongoing med compliance and talking with providers if there are adverse effects so changes can be made. He agreed. Medication Compliance: Yes Side effects from medications: No Attending Groups: Yes Review of Systems Acute medical concerns: No Medical Review of Systems: unchanged Review of Systems Review of Systems URI sx. decreasing Mental Status Exam Mental Status Exam Patient Appearance: Appropriate Patient Orientation: Person, Place, Time and Situation Level of Consciousness: Alert Patient Behavior: Talkative and Good Eye Contact Mood Description: Appropriate Affect Description: Appropriate Patient Cognition Impaired: No Ability to Follow Directions: Good Speech Pattern: Spontaneous Speech Memory Description: Episodic Impaired Hallucinations: None Delusions: Not Present Thought Process: Intact Thought Content: positive for Intact Depressive Symptoms: Thoughts of /Suicide (denies) Judgement: Good Diagnostics Vital Signs (24Hr): Vital Signs - 24 hr 08/15/24 20:00 08/16/24 08:00 Temperature 99.4 F 98 F Pulse Rate 106 H 87 Respiratory Rate 16 Blood Pressure 138/82 140/81 H Pulse Oximetry 94 98 Oxygen Delivery Method Room Air Room Air BMI result Body Mass Index 37.9 Labs 08/06/24 19:34 08/06/24 19:34 Labs: Laboratory Results - last 48 hr 08/09/24 08/15/24 08:23 11:36 Total Testosterone 403 Fr Testosterone Dialys 68.5 Influenza Type A (PCR) NEGATIVE Influenza Type B (PCR) NEGATIVE RSV RNA Qual (PCR) NEGATIVE SARS-CoV-2 RNA (RT-PCR) NEGATIVE Imaging Radiology Impressions: ITS Impressions Chest CTA 07/29/24 18:08 IMPRESSION: There are no filling defects within the main pulmonary artery, right or left pulmonary arteries, or lobar pulmonary arteries to indicate an acute pulmonary embolism. Evaluation of the segmental and subsegmental arteries is somewhat limited secondary to mixing artifact. The lungs are clear. VTE: Negative. Fleischner guidelines were followed. Electronically signed by: Yoni Garcias DO 07/29/2024 06:44 PM [facility] KUB X-Ray 08/09/24 14:55 IMPRESSION: Moderate amount of stool throughout the colon. Electronically signed by: Gabriella Sandoval MD 08/10/2024 08:35 PM [facility] Medications Medications Current Medications Acetaminophen (Acetaminophen 325 Mg Tablet) 650 mg PO Q6H PRN PRN Reason: Headache/Pain Mild Scale (1-3) Last Admin: 08/15/24 20:25 Dose: 650 mg Al Hydroxide/Mg Hydroxide (Magnesium Hydrox/Alum Hydrox 30 Ml Oral.Susp) 30 ml PO Q6H PRN PRN Reason: Heartburn/Nausea Last Admin: 08/15/24 20:52 Dose: 30 ml Amlodipine Besylate (Amlodipine Besylate 10 Mg Tablet) 10 mg PO DAILY BRIAN; Protocol Last Admin: 08/16/24 08:27 Dose: 10 mg Aripiprazole (Aripiprazole 5 Mg Tablet) 5 mg PO BEDTIME BRIAN Last Admin: 08/15/24 20:23 Dose: 5 mg Benzocaine (Throat Lozenge, Medicated Lozenge) 1 lozenge MUCOUS MEM Q2H PRN PRN Reason: Sore Throat Chlorpromazine HCl (Chlorpromazine Hcl 25 Mg Tablet) 25 mg PO Q6H PRN PRN Reason: psychosis Last Admin: 08/07/24 05:44 Dose: 25 mg Famotidine (Famotidine 20 Mg Tablet) 20 mg PO DAILY BRIAN Last Admin: 08/16/24 08:27 Dose: 20 mg Hydroxyzine HCl (Hydroxyzine Hcl 25 Mg Tablet) 25 mg PO Q6H PRN PRN Reason: Anxiety Last Admin: 08/07/24 00:14 Dose: 25 mg Ibuprofen (Ibuprofen 800 Mg Tablet) 800 mg PO Q8H PRN PRN Reason: Migraine Headache Last Admin: 08/16/24 11:03 Dose: 800 mg Lidocaine (Lidocaine 4 % Patch Adh..Patch) 1 patch TRANSDERMA DAILY BRIAN; Protocol Last Admin: 08/16/24 08:54 Dose: 1 patch Lorazepam (Lorazepam 0.5 Mg Tablet) 0.5 mg PO TID BRIAN Last Admin: 08/16/24 16:04 Dose: 0.5 mg Losartan Potassium (Losartan Potassium 25 Mg Tablet) 25 mg PO DAILY BRIAN; Protocol Last Admin: 08/16/24 08:27 Dose: 25 mg Magnesium Hydroxide (Milk Of Magnesia 30 Ml Oral.Susp) 30 ml PO DAILY PRN PRN Reason: Constipation Last Admin: 07/31/24 09:07 Dose: 30 ml Mirtazapine (Mirtazapine 15 Mg Tablet) 15 mg PO BEDTIME BRIAN Last Admin: 08/15/24 20:23 Dose: 15 mg Nicotine Polacrilex (Nicotine Polacrilex 2 Mg Gum) 4 mg BUCCAL Q2H PRN PRN Reason: Nicotine Cravings Pseudoephedrine HCl (Pseudoephedrine Hcl 30 Mg Tablet) 30 mg PO Q6H PRN PRN Reason: nasal congestion Last Admin: 08/15/24 08:28 Dose: 30 mg Trazodone HCl (Trazodone Hcl 50 Mg Tablet) 50 mg PO BEDTIME MRX1 PRN PRN Reason: Insomnia Allergies Allergies Allergy/AdvReac Type Severity Reaction Status Date / Time Penicillins Allergy Fever Verified 07/29/24 15:32 olanzapine AdvReac Severe other Verified 08/03/24 17:10 Assessment & Plan Assessment & Plan (1) MDD (major depressive disorder), recurrent severe, without psychosis: Status: Acute Code(s): F33.2 - Major depressive disorder, recurrent severe without psychotic features (2) Anxiety: Status: Acute Code(s): F41.9 - Anxiety disorder, unspecified Plan Depression, Anxiety, Mood dysregulation. 08/01: Lorazepam 0.5 mg tid (hx of catatonia) 08/02: Continue current management and treatment plan. Monitor response to restarting medications. 08/03: Increase Risperdal to 2 mg bid Increase Remeron to 15 mg HS 08/04: Continue current management and treatment plan. 08/05: If orthostasis continues consider lowering Risperdal or switching. 08/06: DC Risperdal Chlorpromazine 25 mg q6hprn psychosis Testosterone level 08/07 Weekend patient lowered himself to the ground, saying he was dizzy, wanted to go to the ER; rapid response called and decision was to treat him place. Same event happened again this morning at 05:00. Patient discussed and it sounds like it was more of an anxiety attack than anything else. He denies AH; denies SI. He says that he does have confused thoughts and it has been difficult for him to decide what he should do in a given moment. Try to discuss this further but patient kept saying I have cognitive decline.. And could not seem to elaborate. He said his coping skill was to just go to sleep. Broach the topic where patient broke his I phone and other things in his household because he thought some text were implying that he is Citizen Of [place]. Patient again could not elaborate. He remains quiet, keeping himself, intermittently not eating -patient retracted 3 day -patient has history of catatonia and current presentation is reminiscent of past catatonic symptoms. Will hold off on restarting Risperdal at this time and instead increase Ativan to 1 mg t.i.d. (not concerned about earlier reports of being dizzy, when patient lowered himself to the ground as this seemed to be more related to anxiety and behavioral rather than organic). 08/10: No changes today, continue current regime/plan. 08/11 seems to be doing a little better, more present, says he is feeling better; continue current regimen; discussed whether not to increase dose but patient would like to leave it where it is to which personal lines underwriter agreed 08/12 patient continues to do better, more present and conversation and says he is feeling like he is getting back to his regular self. Has not expressed any delusional thinking though personal lines underwriter did not inquire. -continue Ativan 1 mg t.i.d. for now to ensure patient is not return to catatonic symptoms; will eventually taper 08/15- Continue regime. Discharge 08/17. 08/16- Discharge 08/17. Plan: CV, 15 minute checks Continue Ativan to 1 mg t.i.d.; catatonia seems to be resolved however recommend continuing Ativan so does not return; patient may even be discharged on Ativan with a built-in taper -started famotidine for GERD Encourage full milieu Collateral contacts Diagnostics as needed Psychopharmacology evaluation Discharge planning. Reason for continued inpatient stay Substantial Risk for: stable for discharge Time Spent With Patient Time: Total time managing care of this patient today ____ minutes.
[2024-08-16] MEDS: Magnesium Hydrox/Alum Hydrox 30 ML ORAL.SUSP PO (19:08)
[2024-08-16 20:00] VITALS: BP 159/69; PULSE 121; TEMP 36.9; O2SAT 96
[2024-08-16] MEDS: ARIPiprazole 5 MG TABLET PO (22:15)
[2024-08-16] MEDS: Mirtazapine 15 MG TABLET PO (22:16)
[2024-08-17 08:54] VITALS: BP 125/67; PULSE 114; RESP 16; TEMP 36.9; O2SAT 99
[2024-08-17 08:58] VITALS: BP 125/67
[2024-08-17] MEDS: Losartan Potassium 25 MG TABLET PO (08:58)
[2024-08-17] MEDS: Lidocaine 4 % Patch ADH..PATCH 1 PATCH TRANSDERMA (08:58)
[2024-08-17] MEDS: LORazepam 0.5 MG TABLET PO (08:58)
[2024-08-17] MEDS: Ibuprofen 800 MG TABLET PO (08:58)
[2024-08-17 08:59] VITALS: BP 125/69
[2024-08-17] MEDS: amLODIPine Besylate 10 MG TABLET PO (08:59)
[2024-08-17] MEDS: Famotidine 20 MG TABLET PO (08:59)
--- NOTE | 2024-08-17 10:17 | PM.PSYDC ---
DS: Providers Provider Date of admission: 07/30/24 11:27 Primary care physician: Kenneth Car MD Consults: 08/01/24 09:36 Consult to Hospitalist Routine Comment: feeling faint Consulting Provider: [facility] [place] Hospitalists Reason For Exam: hx saddle PE, noncompliant with Eliquis, CT neg, 08/08/24 18:23 Consult to Hospitalist Routine Comment: Consulting Provider: [facility] [place] Hospitalists Reason For Exam: HTN-Amlodipine at 10 mg, ?increase or another agen DS: Diagnosis Discharge Diagnosis (1) MDD (major depressive disorder), recurrent severe, without psychosis: Status: Acute (2) Anxiety: Status: Acute DS: Medications Discharge Medications Home Medications: Previous Rx's ?Medication ?Instructions ?Recorded amlodipine 10 mg tablet 10 mg PO DAILY #30 tabs 08/16/24 aripiprazole 5 mg tablet (Abilify) 5 mg PO BEDTIME #30 tabs 08/16/24 famotidine 20 mg tablet 20 mg PO DAILY #30 tabs 08/16/24 hydroxyzine HCl 25 mg tablet 25 mg PO Q6H PRN Anxiety #60 tabs 08/16/24 lidocaine 4 % topical patch 1 patch transdermal DAILY #30 ea 08/16/24 (Lidocaine Pain Relief) lorazepam 0.5 mg tablet 0.5 mg PO TID #45 tabs 08/16/24 losartan 25 mg tablet 25 mg PO DAILY #30 tabs 08/16/24 mirtazapine 15 mg tablet 15 mg PO BEDTIME #3 tabs 08/16/24 trazodone 50 mg tablet 50 mg PO BEDTIME MRX1 PRN Insomnia 08/16/24 #60 tabs Data Data Completed and Pending Completed studies during hospitalization [Text1]: 08/09/24 08/15/24 08:23 11:36 Total Testosterone 403 Fr Testosterone Dialys 68.5 Influenza Type A (PCR) NEGATIVE Influenza Type B (PCR) NEGATIVE RSV RNA Qual (PCR) NEGATIVE SARS-CoV-2 RNA (RT-PCR) NEGATIVE Imaging Diagnostic Imaging Impressions Chest CTA 07/29/24 18:08 IMPRESSION: There are no filling defects within the main pulmonary artery, right or left pulmonary arteries, or lobar pulmonary arteries to indicate an acute pulmonary embolism. Evaluation of the segmental and subsegmental arteries is somewhat limited secondary to mixing artifact. The lungs are clear. VTE: Negative. Fleischner guidelines were followed. Electronically signed by: Yoni Garcias DO 07/29/2024 06:44 PM EST RP KUB X-Ray 08/09/24 14:55 IMPRESSION: Moderate amount of stool throughout the colon. Electronically signed by: Gabriella Sandoval MD 08/10/2024 08:35 PM EST RP DS: Summary Time Spent with Patient Time attestation: Total time managing care of this patient today ____ minutes. Discharge Plan Discharge Anticipated Discharge Date/Time: 08/17/24 12:00 Patient Disposition: Home, Self-Care Discharge Diagnosis: Schizoaffective disorder, depressed Referrals: Kenneth Car MD [Primary Care Provider] - 1 Week Discharge Medications: New lidocaine [Lidocaine Pain Relief] 4 % Adhesive Patch,Medicated 1 patch transdermal DAILY Qty: 30 0RF Protocol: Apply to: Apply to: Back trazodone 50 mg Tablet 50 mg PO BEDTIME MRX1 PRN (Reason: Insomnia) Qty: 60 0RF famotidine 20 mg Tablet 20 mg PO DAILY Qty: 30 0RF lorazepam 0.5 mg Tablet 0.5 mg PO TID Qty: 45 1RF amlodipine 10 mg Tablet 10 mg PO DAILY Qty: 30 0RF Protocol: Hold for SBP< HOLD for SBP < : 90 losartan 25 mg Tablet 25 mg PO DAILY Qty: 30 0RF Protocol: Hold for SBP< HOLD for SBP < : 90 hydroxyzine HCl 25 mg Tablet 25 mg PO Q6H PRN (Reason: Anxiety) Qty: 60 0RF mirtazapine 15 mg Tablet 15 mg PO BEDTIME Qty: 3 0RF aripiprazole [Abilify] 5 mg Tablet 5 mg PO BEDTIME Qty: 30 0RF Discharge Orders: Discharge Order (Routine); Ordered 08/17/24 Ordered By: Lisa Kat Diet: Advance to usual diet Activity on Discharge: As tolerated Stand Alone Forms: Patient Portal Discharge page Print Language: Malawian Care Plan Goals: Mood and Behavioral Stabilization Health Concerns: Mood and Behavioral Stabilization Plan of Treatment: Attend scheduled appointments Take medications as directed Call/Return if needed Assessment: Denies SI/HI/AH/VH. No sx of acute ruby or psychosis
== END 2024-08-17 11:52 | disposition home or self-care (01) | DRG 751 ==
LOC: HO.ED 07-30 01:07 → HO.PM5 07-30 11:30
PROVIDERS: Nurse Practitioner Family; Physician Assistant; Student in an Organized Health Care Education/Training Program; Admitting Provider Clinical Nurse Specialist Psychiatric/Mental Health, Adult; Emergency Provider Internal Medicine; PCP Internal Medicine; Visit Provider Clinical Nurse Specialist Psychiatric/Mental Health, Adult
DX: F33.2 Major depressive disorder, recurrent severe without psychotic features (principal); Z91.148 Patient's other noncompliance with medication regimen for other reason; F41.9 Anxiety disorder, unspecified; R55 Syncope and collapse; I10 Essential (primary) hypertension; Z20.822 Contact with and (suspected) exposure to COVID-19; Z86.711 Personal history of pulmonary embolism; Z23 Encounter for immunization; Z91.199 Patient's noncompliance with other medical treatment and regimen due to unspecified reason; Z87.891 Personal history of nicotine dependence; Z79.899 Other long term (current) drug therapy
CPT/HCPCS: 0241U; 36415; 71275; 74018; 80048; 80061; 80076; 80143; 80179; 80307; 81001; 82607; 82746; 82947; 83036; 83605; 83735; 84402; 84403; 84439; 84443; 84484; 85025; 85027; 85610; 85730; 87633; 90656; 93005; 99285; Q9967; S9485

== ENCOUNTER → 2024-07-29 15:35 | Outpatient (BNV) | payer OTHER, SELFPAY | PROVIDERS: Emergency Provider Internal Medicine; PCP Internal Medicine; Visit Provider Internal Medicine | DX: R94.31 Abnormal electrocardiogram [ECG] [EKG] (principal) | CPT/HCPCS: 93010 ==

== ENCOUNTER 2024-07-30 11:27 | Outpatient (BNV) | payer OTHER, SELFPAY | END 2024-08-05 14:52 | PROVIDERS: Admitting Provider Clinical Nurse Specialist Psychiatric/Mental Health, Adult; Emergency Provider Internal Medicine; PCP Internal Medicine; Visit Provider Internal Medicine Cardiovascular Disease | DX: R00.0 Tachycardia, unspecified (principal) | CPT/HCPCS: 93010 ==

== ENCOUNTER → 2024-07-30 11:27 | Outpatient (BNV) | payer OTHER, SELFPAY | PROVIDERS: Admitting Provider Clinical Nurse Specialist Psychiatric/Mental Health, Adult; Emergency Provider Internal Medicine; PCP Internal Medicine; Visit Provider Clinical Nurse Specialist Psychiatric/Mental Health, Adult | DX: F33.2 Major depressive disorder, recurrent severe without psychotic features (principal); F41.9 Anxiety disorder, unspecified | CPT/HCPCS: 99231; 99232 ==